=== PATIENT | male | born 1940 | race Caucasian/White ===

== ENCOUNTER → 2020-06-13 13:56 | Outpatient (BNVA) | payer MEDICARE, SELFPAY | PROVIDERS: PCP Internal Medicine; Visit Provider Urology | DX: N40.1 Benign prostatic hyperplasia with lower urinary tract symptoms (principal); R39.198 Other difficulties with micturition; R39.15 Urgency of urination; R97.20 Elevated prostate specific antigen [PSA]; N28.89 Other specified disorders of kidney and ureter; Z79.899 Other long term (current) drug therapy | CPT/HCPCS: 51798; 99214 ==

== ENCOUNTER 2020-06-20 11:26 | Outpatient (REF) | payer MEDICARE, SELFPAY ==
--- NOTE | 2020-06-20 11:28 | XR_ITS ---
EXAMINATION: XR SHOULDER, LEFT CLINICAL INFORMATION: Left shoulder pain. COMPARISON: None. TECHNIQUE: 3-view left shoulder FINDINGS: There is no evidence of acute fracture or dislocation of the left shoulder. There is mild narrowing of the glenohumeral joint with some inferior spurring. No evidence of calcific tendinitis. IMPRESSION: Mild degenerative change glenohumeral joint.
== END 2020-06-20 11:27 | disposition home or self-care (01) ==
LOC: HO.XRAY 11:26
PROVIDERS: PCP Internal Medicine; Referring Provider Internal Medicine; Visit Provider Orthopaedic Surgery
DX: M75.42 Impingement syndrome of left shoulder (principal); G56.01 Carpal tunnel syndrome, right upper limb; Z79.899 Other long term (current) drug therapy; Z95.0 Presence of cardiac pacemaker
CPT/HCPCS: 20610; 73030; 99214; J1040

== ENCOUNTER 2020-06-21 08:26 | Outpatient (REF) | payer MEDICARE, SELFPAY ==
--- NOTE | 2020-06-21 | US_ITS ---
EXAMINATION: US RETROPERITONEAL LIMITED (RENAL ONLY) CLINICAL INFORMATION: Renal mass. COMPARISON: Renal ultrasound dated 09/19/2016, CT abdomen dated 12/10/2019 TECHNIQUE: Real-time imaging of the kidneys. FINDINGS: RIGHT KIDNEY: 10.8 x 4.5 x 4.1 cm (SAG x AP x TRV). The kidney is normal in size, contour and echogenicity. Renal cortical thickness is normal. No renal calculi or hydronephrosis. There are at least 3 anechoic cysts seen. 1. A lower pole cyst measures 1.8 x 2.0 x 1.4 cm. 2. A lower pole cyst measures 1.1 x 1.2 x 1.2 cm. 3. A midpole cyst measures 1.2 x 1.3 x 1.4 cm. There is no solid mass visualized. LEFT KIDNEY: 12.1 x 4.5 x 4.5 cm (SAG x AP x TRV). The kidney is normal in size, contour and echogenicity. Renal cortical thickness is normal. No renal calculi or hydronephrosis. There are 2 anechoic cysts. 1. An upper pole cyst with septation measures 3.3 x 2.6 x 2.6 cm. 2. A lower pole anechoic cyst measures 1.9 x 2.2 x 2.3 cm. No solid mass seen. IMPRESSION: Bilateral renal cysts. A complex cyst upper pole left kidney is noted with septation. There are no echogenic renal calculi or hydronephrosis.
== END 2020-06-21 08:27 | disposition home or self-care (01) ==
LOC: HO.US 08:26
PROVIDERS: PCP Internal Medicine; Visit Provider Urology
DX: N28.89 Other specified disorders of kidney and ureter (principal)
CPT/HCPCS: 76775

== ENCOUNTER 2020-06-23 08:36 | Day surgery (SDC) | payer MEDICARE, SELFPAY ==
[2020-06-23 08:54] VITALS: BMI 22.9
[2020-06-23 09:04] VITALS: BP 142/71; PULSE 85; RESP 18; TEMP 36.8; O2SAT 97
--- NOTE | 2020-06-23 09:41 | MHC.SHP ---
Pre-Procedural Eval Section A The patient is an INPATIENT: No Changes since office visit: No Cold of Flu in the past 2 weeks, No New Medical Problems, No Changes in Medication and No Patient answered all questions Section B Chief Complaint: Gerd Allergies: Allergies Allergy/AdvReac Type Severity Reaction Status Date / Time No Known Allergies Allergy Mild N/A Verified 06/20/20 11:40 Plan Patient has been examined and remains a candidate for the planned procedure
--- NOTE | 2020-06-23 09:42 | MHC.SHP ---
Pre-Procedural Eval Section B Chief Complaint: Gerd Details of Present Illness: GERD Relevant Family History (Specify if Yes): No Relevant Social History: None Present Medications: see Short Stay Collaborative assessment Medical History: No relevant PMH History of Previous Operations: No relevant previous surgery Allergies: Allergies Allergy/AdvReac Type Severity Reaction Status Date / Time No Known Allergies Allergy Mild N/A Verified 06/20/20 11:40 Review of Systems Sugical H&P ROS: Negative: Constitution, Cardiovascular, Respiratory, Neurological, Psychiatric, Hem-Onc, Allergic/Immunologic, Gastrointestinal, Genitourinary, Musculoskeletal, Integumentary, Endocrine and Eyes/Ears/Nose/Throat Exam Surgical H&P Exam: Normal: HEENT, Normal: Heart, Normal: Lungs, Normal: Extremities, Normal: Abdomen, Normal: Skin and Normal: Neurological Plan Diagnosis/Plan: Unchanged Patient has been examined and remains a candidate for the planned procedure
--- NOTE | 2020-06-23 09:49 | HO.ANESPROP2 ---
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 Allergies Allergy/AdvReac Type Severity Reaction Status Date / Time No Known Allergies Allergy Mild N/A Verified 06/20/20 11:40 Home Medications Medication Instructions Recorded Confirmed Type tamsulosin 0.4 mg capsule mg PO 06/13/20 06/20/20 History omeprazole 40 mg capsule,delayed 40 mg PO DAILY 06/20/20 06/20/20 History release simvastatin 20 mg tablet 20 mg PO DAILY 06/20/20 06/20/20 History Exam Exam Date and Time: June 23, 202049 Height,Weight and Vital Signs: Height 5 ft 10 in Weight 72.575 kg Last Vital Signs Temp 98.3 F 06/23/20 09:04 Pulse 85 06/23/20 09:04 Resp 18 06/23/20 09:04 BP 142/71 H 06/23/20 09:04 Pulse Ox 97 06/23/20 09:04 Narrative Narrative: receding chin Airway Mallampati Class: III TM Dist: <=3cm Neck ROM: Limited Loose/Missing/Broken Teeth: No Heart: RRR Lungs: Clear Assessment and Plan Assessment Anesthesia Assessment: Anesthesia Plan Discussed and Chart Reviewed Final Anesthetic Review NPO: Yes ASA Class: III Final Preanesthetic Review: Meds/Allgs Chart Reviewed, Consent Obtained/Reviewed and Anes Risks/Benef Reviewed Patient Risk: Intermediate Procedure Risk: Intermediate Anesthetic Plan Anesthetic Plan: MAC: Disposition: Standard PACU
[2020-06-23 10:25] VITALS: BP 129/73; PULSE 59; RESP 16; TEMP 37.1; O2SAT 96
--- NOTE | 2020-06-23 10:28 | PM.OP ---
Brief Operative Note Date of procedure: 06/23/20 Pre-op diagnosis: GERD Post-op diagnosis: other (Minimal hiatal hernia and gastritis.) Procedure: EGD with biopsy Surgeon: Grzegorz Bhatia Anesthesia: MAC Estimated blood loss (mL): 2.0 Pathology: other (A. Gastric antrum B. EG Junction at 38cm) Condition: stable Disposition: PACU
--- NOTE | 2020-06-23 10:38 | PC.NURSE ---
Pt arrived in PACU with 1 Liter LR infusing. 500ml left in bag. IVF order not in MAR ansd was therefore documented as other in I&O
[2020-06-23 10:39] VITALS: BP 120/69; PULSE 64; RESP 18; O2SAT 98
--- NOTE | 2020-06-23 10:58 | OP_ITS ---
SURGEON: Grzegorz Bhatia MD INDICATIONS: The patient presents for evaluation of gastroesophageal reflux. Full consent has been obtained from him for this, including risks of bleeding and perforation. PREOPERATIVE DIAGNOSIS: Gastroesophageal reflux. POSTOPERATIVE DIAGNOSIS: PROCEDURE PERFORMED: Esophagogastroduodenoscopy with biopsies. ESTIMATED BLOOD LOSS: COMPLICATIONS: ANESTHESIA: Monitored anesthesia care. ASSISTANTS: SPECIMENS: POSTOPERATIVE DIAGNOSES: Gastroesophageal reflux., small hiatal hernia, and mild gastritis. DESCRIPTION OF PROCEDURE: The patient was placed in the left lateral decubitus position. The Olympus video gastroscope was passed in the posterior oropharynx and upper esophagus under direct vision. The scope was passed slowly to the distal esophagus. The gastroesophageal junction appeared at 38 cm. There was some very minimal irregularity consistent with some reflux, but no evidence of esophagitis nor any definitive evidence of Del Real's mucosa. There was a minimal hiatal hernia. The scope was advanced to the pylorus and the duodenum cannulated to the descending portion. The duodenum including the bulb was carefully inspected and appeared normal without mass or ulceration. The scope was withdrawn back into the stomach. The gastric antrum had some mild changes of gastritis with some erythema and edema, but no erosions or ulcerations. There was good peristalsis. The scope was retroflexed visualizing the proximal stomach carefully, which appeared normal, without any sign of mass or ulceration. Scope was straightened and biopsies were obtained from the gastric antrum. The scope was withdrawn back into the esophagus. Biopsies were obtained at the EG junction at 38 cm. Proximal to this, the esophageal mucosa appeared normal. The scope was withdrawn from the patient. He tolerated the procedure well and was returned to recovery area in stable condition. IMPRESSION: 1. Minimal hiatal hernia. 2. Gastroesophageal reflux. 3. Mild gastritis. PLAN: The results of the biopsy will be checked. In the past, he did have H pylori on his gastric biopsies. Even if that remains present, I would not necessarily treat that at this point since he is not having any abdominal complaints other than occasional reflux. He was advised to continue his omeprazole once or twice a day as needed. At this point, I think, he can see me on a p.r.n. basis, but he was advised to certainly call if any problems or questions arise. He was advised not to use any aspirin or NSAIDs for 1 week. This has been discussed with his . MD DAMON Davis/RYAN / [id number]
== END 2020-06-23 11:36 | disposition home or self-care (01) ==
PROVIDERS: Visit Provider Internal Medicine
PROC: 0DJ08ZZ Inspection of Upper Intestinal Tract, Via Natural or Artificial Opening Endoscopic (ICD-10-PCS; CPT 43235; principal; 2020-06-23 09:40)
DX: K21.00 Gastro-esophageal reflux disease with esophagitis, without bleeding (principal); K29.60 Other gastritis without bleeding; K44.9 Diaphragmatic hernia without obstruction or gangrene; Z79.899 Other long term (current) drug therapy; Z95.0 Presence of cardiac pacemaker
CPT/HCPCS: 43239; 88305; 88342

== ENCOUNTER 2021-01-11 09:20 | Outpatient (REF) | payer MEDICARE, SELFPAY ==
--- NOTE | ~2021-01-11 | US_ITS ---
EXAMINATION: US RETROPERITONEAL LIMITED (RENAL ONLY) CLINICAL INFORMATION: Other specified disorders of kidney and ureter. Renal cysts. COMPARISON: CT of the abdomen and pelvis most recent December 2019. Renal ultrasound most recent 06/21/2020. TECHNIQUE: Real-time imaging of the kidneys. FINDINGS: RIGHT KIDNEY: 11.0 x 4.0 x 4.6 cm (SAG x AP x TRV). The kidney is normal in size, contour, and echogenicity. Renal cortical thickness is normal. There are multiple at least 4 cysts. Largest measures 1.9 x 1.5 x 1.7 cm in the lower pole. Cysts appear to represent simple cysts. No renal calculi, mass or hydronephrosis. LEFT KIDNEY: 11.5 x 4.8 x 4.2 cm (SAG x AP x TRV). The kidney is normal in size, contour, and echogenicity. Renal cortical thickness is normal. There are multiple at least 4 cysts. The largest measures 3 cm in the upper pole. The previously identified septation seen on June 2020 is not appreciated on the current exam. There are 2 small 1 cm complex cysts with single thin septation in the upper and lower pole. No renal calculi, mass or hydronephrosis. US/US renal BI IMPRESSION: Multiple bilateral renal cysts. When compared with previous renal ultrasound June 2020, additional cysts are appreciated on the current exam. When compared with previous CT December 2019 there are multiple bilateral renal cysts seen by CT that are not appreciated by ultrasound. Follow-up CT or MRI of the kidneys with and without contrast for better evaluation of the multiple bilateral cysts should be considered if clinically indicated.
== END 2021-01-11 09:21 | disposition home or self-care (01) ==
LOC: HO.US 09:20
PROVIDERS: PCP Internal Medicine; Visit Provider Urology
DX: N28.89 Other specified disorders of kidney and ureter (principal)
CPT/HCPCS: 76775

== ENCOUNTER 2021-01-12 09:54 | Outpatient (REF) | payer MEDICARE, SELFPAY ==
[2021-01-12 14:17] LABS: Blood Urea Nitrogen 22 mg/dL (9-16); Estimated Glomerular Filt Rate 54
[2021-01-12 15:35] LABS: PSA,Total (Free>4and<10) 5.02 ng/mL (0.00-4.00)
[2021-01-15 11:56] LABS: Free Prostate Spec Ag 0.6 ng/mL; Percent Free Prostate Spec Ag 12 % (calc) (>25); Prostate Specific Ag Total 5.1 ng/mL (< OR = 4.0)
== END 2021-01-12 09:55 | disposition home or self-care (01) ==
LOC: HO.10HDL 09:54
PROVIDERS: Visit Provider Urology
DX: Z12.5 Encounter for screening for malignant neoplasm of prostate (principal); R97.20 Elevated prostate specific antigen [PSA]; R39.15 Urgency of urination
CPT/HCPCS: 36415; 82565; 84153; 84154; 84520

== ENCOUNTER → 2021-03-01 08:42 | Outpatient (BNVA) | payer MEDICARE, SELFPAY | PROVIDERS: PCP Internal Medicine; Visit Provider Urology | DX: N40.2 Nodular prostate without lower urinary tract symptoms (principal); N40.0 Benign prostatic hyperplasia without lower urinary tract symptoms; R97.20 Elevated prostate specific antigen [PSA] | CPT/HCPCS: 51798; 99212 ==

== ENCOUNTER → 2021-03-23 08:28 | Outpatient (BNVA) | payer MEDICARE, SELFPAY | PROVIDERS: Visit Provider Orthopaedic Surgery | DX: M77.11 Lateral epicondylitis, right elbow (principal) | CPT/HCPCS: 20550; 20605; J1020; Q3014 ==

== ENCOUNTER → 2021-04-11 14:30 | Outpatient (BNVA) | payer MEDICARE, SELFPAY | PROVIDERS: Visit Provider Surgery | DX: R10.30 Lower abdominal pain, unspecified (principal) | CPT/HCPCS: 99202 ==

== ENCOUNTER 2021-06-25 10:36 | Outpatient (REF) | payer MEDICARE, SELFPAY | END 2021-06-25 10:37 | disposition home or self-care (01) | LOC: HO.10HDL 10:36 | PROVIDERS: Visit Provider Urology | DX: N40.0 Benign prostatic hyperplasia without lower urinary tract symptoms (principal); Z12.5 Encounter for screening for malignant neoplasm of prostate | CPT/HCPCS: 36415; 84153 ==

== ENCOUNTER → 2021-07-03 08:24 | Outpatient (BNVA) | payer MEDICARE, SELFPAY | PROVIDERS: PCP Internal Medicine; Visit Provider Urology | CPT/HCPCS: Q3014 ==

== ENCOUNTER 2021-07-19 12:04 | Outpatient (REF) | payer MEDICARE, SELFPAY ==
--- NOTE | ~2021-07-19 | XR_ITS ---
EXAMINATION: XR PELVIS CLINICAL INFORMATION: Pain COMPARISON: Previous bilateral hip x-ray August 2015 TECHNIQUE: AP view of the pelvis. FINDINGS: There is bilateral hip arthritis with joint space narrowing and osteophyte. This is similar to 2015 exam. There is a stable sclerotic density projecting over the right femoral neck measuring 8 mm probably representing a bone island. Bones of the pelvis are normal. Soft tissues are normal. XR/XR pelvis 1-2V IMPRESSION: Bilateral hip arthritis similar to 2015 exam.
--- NOTE | ~2021-07-19 | XR_ITS ---
EXAMINATION: KNEE X-RAY CLINICAL INFORMATION: Pain COMPARISON: None TECHNIQUE: Standing AP view of both knees and lateral and sunrise view of the right knee FINDINGS: Right: There is mild valgus angulation. Bone alignment is otherwise normal. No fracture or dislocation is seen. There is bilateral degenerative meniscal calcification. There is mild joint space narrowing at the medial femoral tibial joint There are small osteophytes at the patellofemoral joint. There is an osteophyte at the quadriceps tendon insertion to the patella. There is a small joint effusion. There is evidence of atherosclerotic disease. Standing AP view of the left knee demonstrates degenerative meniscal calcification. XR/XR knee standing BI IMPRESSION: Degenerative changes.
--- NOTE | ~2021-07-19 | XR_ITS ---
EXAMINATION: KNEE X-RAY CLINICAL INFORMATION: Pain COMPARISON: None TECHNIQUE: Standing AP view of both knees and lateral and sunrise view of the right knee FINDINGS: Right: There is mild valgus angulation. Bone alignment is otherwise normal. No fracture or dislocation is seen. There is bilateral degenerative meniscal calcification. There is mild joint space narrowing at the medial femoral tibial joint There are small osteophytes at the patellofemoral joint. There is an osteophyte at the quadriceps tendon insertion to the patella. There is a small joint effusion. There is evidence of atherosclerotic disease. Standing AP view of the left knee demonstrates degenerative meniscal calcification. XR/XR knee RT 2V IMPRESSION: Degenerative changes.
== END 2021-07-19 12:05 | disposition home or self-care (01) ==
LOC: HO.HOSX 12:04
PROVIDERS: Visit Provider Orthopaedic Surgery
DX: R10.30 Lower abdominal pain, unspecified (principal); M25.561 Pain in right knee; M25.559 Pain in unspecified hip
CPT/HCPCS: 72170; 73560; 73565; 99202

== ENCOUNTER 2021-08-17 07:54 | Outpatient (REF) | payer MEDICARE, SELFPAY ==
[2021-08-17 10:43] LABS: Basophils Percent Auto 0.5 % (0-2); Eosinophils Absolute Auto 0.4 X10*3/uL (0.0-0.4); Eosinophils Percent Auto 4.8 % (0-4); Hematocrit 41.1 % (42.0-52.0); Hemoglobin 13.9 g/dl (14.0-18.0); Imm Gran Abs Auto 0.03 X10*3/uL (0.00-0.03); Imm Gran Pct Auto 0.4 % (0.0-0.4); Lymphocytes Absolute Auto 1.7 X10*3/uL (1.2-4.9); Lymphocytes Percent Auto 21.6 % (20-40); MANUAL DIFF FLAG NO; Mean Corpuscular HGB Conc 33.8 g/dl (31.0-36.0); Mean Corpuscular Volume 94.5 fL (80.0-98.0); Mean Platelet Volume 9.4 fL (9.4-12.4); Monocytes Absolute Auto 0.8 X10*3/uL (0.1-1.2); Monocytes Percent Auto 9.4 % (2-11); Neutrophils Percent Auto 63.3 % (45-73); Platelet Count 223 X10*3/uL (160-400); Red Blood Count 4.35 X10*6/uL (4.60-5.80); Red Cell Distribution Width 12.5 % (11.0-16.0)
[2021-08-17 10:55] LABS: Alanine Aminotransferase 12 U/L (0-40); Alkaline Phosphatase 74 U/L (39-117); Anion Gap 11 (12-20); Aspartate Amino Transferase 17 U/L (5-37); Bilirubin Total 0.8 mg/dL (0.0-1.0); Blood Urea Nitrogen 21 mg/dL (9-16); C Reactive Protein 0.11 mg/dL (< or = 0.50); Calcium 9.3 mg/dL (8.4-10.2); Carbon Dioxide 27 mmol/L (22-29); Cholesterol 168 mg/dL; Estimated Glomerular Filt Rate 52; Glucose Fasting 107 mg/dL (60-99); HDL Cholesterol 52 mg/dL; LDL Cholesterol Calculated 100 mg/dl; Total Protein 6.4 g/dL (6.5-8.0); Triglycerides 83 mg/dL
[2021-08-17 11:08] LABS: Albumin Level 4.1 g/dL (3.5-5.0); Chloride 106 mmol/L (96-108); Potassium 4.2 mmol/L (3.3-5.1); Sodium 140 mmol/L (135-145)
[2021-08-17 11:18] LABS: TSH reflex Free T4 3.15 uIU/mL (0.32-4.0)
[2021-08-17 11:22] LABS: Erythrocyte Sedimentation Rate 7 MM/HR (0-15)
[2021-08-17 11:48] LABS: Folate > 20.0 ng/mL (> or = 4.0); Vitamin B12 868 pg/mL (200-900)
== END 2021-08-17 07:55 | disposition home or self-care (01) ==
LOC: HO.10HDL 07:54
PROVIDERS: Visit Provider Internal Medicine
DX: M79.604 Pain in right leg (principal); M79.605 Pain in left leg; E55.9 Vitamin D deficiency, unspecified; I10 Essential (primary) hypertension; E53.8 Deficiency of other specified B group vitamins; M79.7 Fibromyalgia; E78.00 Pure hypercholesterolemia, unspecified
CPT/HCPCS: 36415; 80053; 80061; 82306; 82607; 82746; 84443; 85025; 85652; 86140

== ENCOUNTER 2021-08-24 07:35 | Outpatient (REF) | payer MEDICARE, SELFPAY ==
[2021-08-24 08:26] LABS: Glucose Fasting 110 mg/dL (60-99)
[2021-08-24 08:30] LABS: Estimated Average Glucose 111 mg/dL; Hemoglobin A1C 137.6215 umol/L; Hemoglobin A1c % 5.5 %
== END 2021-08-24 07:36 | disposition home or self-care (01) ==
LOC: HO.LAB 07:35
PROVIDERS: Visit Provider Internal Medicine
DX: R73.9 Hyperglycemia, unspecified (principal)
CPT/HCPCS: 36415; 82947; 83036

== ENCOUNTER 2021-10-22 11:16 | Outpatient (REF) | payer MEDICARE, SELFPAY ==
--- NOTE | ~2021-10-22 | XR_ITS ---
EXAMINATION: XR CHEST CLINICAL INFORMATION: Foreign body COMPARISON: CT abdomen 11/19/2019 TECHNIQUE: 2 views of the chest were obtained. FINDINGS: Lungs are hyperinflated compatible with COPD. A left chest wall single lead pacer is present with its tip at the right ventricular apex. There is an abandoned lead in the right chest wall with its tip also at the right ventricular apex. No infiltrates, pleural effusions, pneumothorax or lung masses are seen. There is no evidence of CHF. 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 XR/XR chest 2V IMPRESSION: Left chest wall single lead pacemaker. Abandoned pacer lead right chest. On the 11/19/2019 scan abdomen, the same 2 pacer leads are present.
== END 2021-10-22 11:17 | disposition home or self-care (01) ==
LOC: HO.HMGCX 11:16
PROVIDERS: PCP Internal Medicine; Visit Provider Internal Medicine
DX: T17.908A Unspecified foreign body in respiratory tract, part unspecified causing other injury, initial encounter (principal)
CPT/HCPCS: 71046

== ENCOUNTER → 2021-11-12 14:08 | Outpatient (BNVA) | payer MEDICARE, SELFPAY | PROVIDERS: PCP Internal Medicine; Visit Provider Orthopaedic Surgery | DX: M77.11 Lateral epicondylitis, right elbow (principal); M62.89 Other specified disorders of muscle | CPT/HCPCS: 20605; 99212; J1100 ==

== ENCOUNTER 2021-12-10 10:19 | Outpatient (REF) | payer MEDICARE, SELFPAY ==
--- NOTE | ~2021-12-10 | US_ITS ---
EXAMINATION: US RETROPERITONEAL LIMITED (RENAL ONLY) CLINICAL INFORMATION: Calculus of kidney. COMPARISON: US retroperitoneal limited (renal only) 01/11/2021 and 06/21/2020. CT abdomen without and with contrast 12/10/2019 TECHNIQUE: Real-time imaging of the kidneys. FINDINGS: RIGHT KIDNEY: 9.6 x 5.5 x 5.3 cm (SAG x AP x TRV). The kidney is normal in size, contour, and echogenicity. Renal cortical thickness is normal. No renal calculi or hydronephrosis. Benign-appearing renal cysts measuring up to 2.1 cm. LEFT KIDNEY: 10.4 x 5.2 x 4.5 cm (SAG x AP x TRV). The kidney is normal in size, contour, and echogenicity. Renal cortical thickness is normal. No renal calculi or hydronephrosis. Benign appearing and likely benign renal cysts one with a thin internal septation measuring 3.2 cm, and one measuring 2.4 cm with a mural calcification, no routine imaging follow-up recommended. US/US renal BI IMPRESSION: Benign-appearing likely benign appearing bilateral renal cysts measuring up to 3.2 cm, no routine imaging follow-up recommended.
[2021-12-10 12:03] LABS: PSA,Total (Free>4and<10) 1.42 ng/mL (0.00-4.00)
== END 2021-12-10 10:20 | disposition home or self-care (01) ==
LOC: HO.US 10:19
PROVIDERS: Visit Provider Urology
DX: Z12.5 Encounter for screening for malignant neoplasm of prostate (principal); N13.8 Other obstructive and reflux uropathy; N40.1 Benign prostatic hyperplasia with lower urinary tract symptoms; N20.0 Calculus of kidney; N28.1 Cyst of kidney, acquired
CPT/HCPCS: 36415; 76775; 84153

== ENCOUNTER 2021-12-31 10:00 | Outpatient (RCR) | payer MEDICARE, SELFPAY ==
--- NOTE | 2021-11-16 14:04 | MHC.PT.EP ---
[facility] [place] Office [place] Office [place] Office [address] Justice Francois [address] [phone] F: [phone] F: [phone] F: [phone] F: [phone] Physical Therapy Plan of Care Date of Evaluation: Date of Surgery: NA Diagnosis: HAMSTRING TIGHTNESS R LE Assessment: Pt IS 81 YO M REFERRED TO PT FROM DR CULVER WITH HAMSTRING TIGHTNESS OF R LE. Pt REPORTS R HS HAS BEEN BOTHERING HIM FOR ABOUT 3 MONTHS (INITIALLY THOUGHT ABOUT 6 WEEKS, BUT THEN REALIZED IT HAS BEEN LONGER. REPORTS NO SPECIFIC INJURY TO HS. REPORTS HE HAS STOPPED STRETCHING HIS HS (AT WALL) X 1 WK TO SEE IF THIS WOULD LESSEN THE IRRITATION (REPORTS NO DIFFERENCE). REPORTS HARDEST THING IS DRIVING. PRESENTS WITH TIGHT HS B (R WORSE THAN L) SOME TTP HS TENDONS/ITB, POOR BALANCE AND POSTURE (hx of back and neck problems with PT FOR BOTH) AND POOR BALANCE. Pt SHOULD BENFIT FROM PT TO HELP INCREASE HS AND LE FLEXIBILITY AND THEN HELP IMPROVE LE AND CORE STRENGTH. Frequency and Duration: The patient will be seen 2X/WK X 6 WKS Short Term Goals: 1. INCREASED POSTURE AND AWARENESS HS/LB CARE 2. INCREASED R HS FLEXIBILITY 5 DEGREES Skilled Nursing Goals: 1. I HEP WITH DC EX PLAN 2. INCREASED FLEX R HS 10 DEGREES 3. DECREASED PAIN R HS WITH DRIVING Treatment Plan: Modalities to reduce pain, spasms and effusion. Manual therapy to restore motion and function. Therapeutic exercise to improve strength and flexibility. Neuromuscular re-education for posture and balance. Therapeutic activities to return to functional activities of daily living. Electronically signed by: DARRELL IBARRA PT Please sign and return to therapist. Thank you for your referral.
--- NOTE | 2021-12-31 12:21 | MHC.PT.DC ---
[facility] [place] Office [place] Office [place] Office [address] Justice Francois [address] [phone] F: [phone] F: [phone] F: [phone] F: [phone] Physical Therapy Discharge Report Diagnosis: HAMSTRING TIGHTNESS R LE Date of Surgery: NA Date of Evaluation: 11/16/21 Date of Discharge: 12/31/21 Treatments to Date: 9 Cancellations to Date: No Shows to Date: Discharge Status: Achieved Goals Independent with HEP Discharge Summary: HAS MET MOST PT GOALS, GOOD PERFORMANCE OF HOME EXS WITH REMINDER OF HOLD TIMES AND REPS Electronically signed by: DARRELL IBARRA PT Please sign and return to therapist. Thank you for your referral.
== END 2021-12-31 12:22 | disposition home or self-care (01) ==
LOC: HO.PT 10:00
PROVIDERS: PCP Internal Medicine; Visit Provider Orthopaedic Surgery
DX: M62.89 Other specified disorders of muscle (principal)
CPT/HCPCS: 97110; 97140; 97161; 97530; 97535

== ENCOUNTER → 2022-01-08 08:43 | Outpatient (BNVA) | payer MEDICARE, SELFPAY | PROVIDERS: PCP Internal Medicine; Visit Provider Urology | DX: N40.0 Benign prostatic hyperplasia without lower urinary tract symptoms (principal); R35.0 Frequency of micturition | CPT/HCPCS: 51798; 99212 ==

== ENCOUNTER → 2022-06-27 09:01 | Outpatient (BNVA) | payer MEDICARE, SELFPAY | PROVIDERS: PCP Internal Medicine; Visit Provider Urology | DX: N40.1 Benign prostatic hyperplasia with lower urinary tract symptoms (principal); R35.0 Frequency of micturition; R36.1 Hematospermia | CPT/HCPCS: 51798; 99212 ==

== ENCOUNTER 2022-07-04 10:00 | Outpatient (RCR) | payer MEDICARE, SELFPAY ==
--- NOTE | 2022-05-15 18:20 | MHC.PT.EP ---
[facility] [place] Office [place] Office [place] Office [address] Justice Francois [address] [phone] F: [phone] F: [phone] F: [phone] F: [phone] Physical Therapy Plan of Care Date of Evaluation: Date of Surgery: N/A Diagnosis: other specified disorders of muscle sciatica, right side hamstring tightness of right lower extremity Assessment: Pt is a pleasant and motivated 81yo M who presents to PT with R glute pain radiating into R LE since Friday. He presents to PT with current impairments in pain, decreased lumbar ROM, decreased core stabilization, decreased hip/glute strength, soft tissue restrictions, and impaired gait. He is limited functionally by prolonged sitting, bending, getting dressed, standing, and walking. He is an excellent candidate for skilled PT in order to address current impairments to facilitate return to PLOF. He will be seen 2x/week for 4 weeks and will be reassessed at that time. Frequency and Duration: The patient will be seen 2x/week for 4 weeks Short Term Goals: Pt will be I with HEP to promote self management of symptoms Pt will demonstrate improvements in postural awareness throughout the day Development And Planning Engineer Goals: Pt will tolerate sitting > 45 minutes with minimal to no pain Pt will demonstrate improvement in function as evidenced by statistically significant improvement in AMILCAR outcome measure Treatment Plan: Modalities to reduce pain, spasms and effusion. Manual therapy to restore motion and function. Therapeutic exercise to improve strength and flexibility. Neuromuscular re-education for posture and balance. Therapeutic activities to return to functional activities of daily living. Electronically signed by: Regina Lawson, PT, DPT Please sign and return to therapist. Thank you for your referral.
--- NOTE | 2022-07-04 12:42 | MHC.PT.DC ---
[facility] [place] Office [place] Office [place] Office [address] Justice Francois [address] [phone] F: [phone] F: [phone] F: [phone] F: [phone] Physical Therapy Discharge Report Diagnosis: other specified disorders of muscle sciatica, right side hamstring tightness of right lower extremity Date of Surgery: N/A Date of Evaluation: 05/15/22 Date of Discharge: 07/04/22 Treatments to Date: 11 Cancellations to Date: No Shows to Date: Discharge Status: Achieved Goals Improved Function Independent with HEP Discharge Summary: Pt has made excellent progress since SOC. He has met his STGs and made good progress toward his LTGs. He has consistently reported minimal to no pain. He demonstrates improvements in postural awareness and body mechanics. He has improved sitting tolerance up to 45 minutes with minimal to no discomfort. He is I and compliant with HEP. Pt is being D/C from skilled PT at this time. He has printed copy of HEP and GTB and BTB. He reports no further questions or concerns for PT at this time. Electronically signed by: Regina Lawson, PT, DPT Please sign and return to therapist. Thank you for your referral.
== END 2022-07-04 12:43 | disposition home or self-care (01) ==
LOC: HO.PT 10:00
PROVIDERS: PCP Internal Medicine; Visit Provider Orthopaedic Surgery
DX: M62.89 Other specified disorders of muscle (principal); M54.31 Sciatica, right side
CPT/HCPCS: 97110; 97140; 97161; 97530

== ENCOUNTER → 2022-12-24 14:31 | Outpatient (BNVA) | payer MEDICARE, SELFPAY | PROVIDERS: PCP Internal Medicine; Visit Provider Nurse Practitioner Family | DX: N48.89 Other specified disorders of penis (principal); Q55.69 Other congenital malformation of penis | CPT/HCPCS: 99212 ==

== ENCOUNTER → 2023-01-08 12:19 | Outpatient (BNVA) | payer MEDICARE, SELFPAY | PROVIDERS: PCP Internal Medicine; Visit Provider Orthopaedic Surgery | DX: G56.01 Carpal tunnel syndrome, right upper limb (principal); R20.0 Anesthesia of skin; R20.2 Paresthesia of skin | CPT/HCPCS: 99202 ==

== ENCOUNTER 2023-01-09 09:25 | Outpatient (REF) | payer MEDICARE, SELFPAY ==
[2023-01-09 11:07] LABS: Prostate Specific Antigen 1.61 ng/mL (<0.05-4.0)
== END 2023-01-09 09:26 | disposition home or self-care (01) ==
LOC: HO.10HDL 09:25
PROVIDERS: Visit Provider Urology
DX: Z12.5 Encounter for screening for malignant neoplasm of prostate (principal); N40.1 Benign prostatic hyperplasia with lower urinary tract symptoms; N13.8 Other obstructive and reflux uropathy
CPT/HCPCS: 36415; 84153

== ENCOUNTER 2023-01-16 14:06 | Day surgery (SDC) | payer MEDICARE, SELFPAY ==
[2023-01-16 15:39] VITALS: BMI 23.2
--- NOTE | 2023-01-16 16:49 | MHC.SHP ---
Pre-Procedural Eval Section A Date of Service: 01/16/23 The patient is an INPATIENT: No Changes since office visit: No Cold of Flu in the past 2 weeks, No New Medical Problems, No Changes in Medication and No Patient answered all questions The History & Physical has been completed within 30 days and I have reviewed it.: Yes Section B Chief Complaint: Carpal tunnel syndrome, right upper limb Allergies: Allergies Allergy/AdvReac Type Severity Reaction Status Date / Time No Known Allergies Allergy Mild N/A Verified 01/08/23 12:37 Plan I have reviewed the history and physical and performed a pertinent physical examination on my patient. No changes have occurred unless specified. Time Spent With Patient Time: Total time managing care of this patient today ____ minutes.
--- NOTE | 2023-01-16 16:50 | W.PM.OPN ---
Operative Note Operative Note Date of Service: 01/16/23 Narrative: Preop diagnosis: 1. Right Carpal tunnel syndrome Postop diagnosis: same Procedure: 1. right Carpal tunnel release Surgeon: Christel Flores MD Anesthesia: local block using 1% lidocaine with epinephrine Findings: Thickened transverse carpal ligament. EBL: Less than 5 mL Specimens: None Complications: None Disposition: Brought to recovery room in stable condition Plan: Follow-up for 10-14 days for wound check and suture removal Indications: The patient is 82 years old, with right carpal tunnel syndrome that has been unresponsive to nonoperative management. The risks and benefits of operative treatment including but not limited to risk of damage to blood vessels, nerves, tendons, infection, persistent pain, persistent symptoms, or possible need for additional surgery were discussed with the patient and the patient wishes to proceed with surgery. Procedure: Once consent was obtained a local block was performed using a combination of 1% lidocaine with epinephrine. The patient was then brought back to the operating suite and placed on the operative table in supine position. The right upper extremity was prepped and draped in a standard surgical fashion. Once assured that we had a good block, a 2.0 cm longitudinal incision was made centered over the carpal tunnel. The incision was made through the skin to the subcutaneous tissues using a #15 blade. Dissection was made down to the level of the transverse carpal ligament with care being taken to protect the palmar cutaneous nerve. Once the transverse carpal ligament was clearly visualized, a longitudinal incision was made in the transverse carpal ligament 1st using a #15 blade, then using tenotomy scissors under direct visualization. Care was taken to look for and protect the motor branch of the median nerve when seen in this area. Once satisfied with our carpal tunnel release the wound was copiously irrigated with normal saline and hemostasis was obtained with a brief period of local pressure. The skin edges were reapproximated with some 5.0 nylon suture material and a sterile dressing was applied. The patient appears to have tolerated the procedure well and with no complications. All digits were well vascularized at the conclusion of the case.
[2023-01-16 18:05] VITALS: BP 168/84; PULSE 66; RESP 18; TEMP 36.6; O2SAT 99
== END 2023-01-16 18:14 | disposition home or self-care (01) ==
PROVIDERS: PCP Internal Medicine; Visit Provider Orthopaedic Surgery
PROC: (CPT 64721; principal; 2023-01-16 15:10)
DX: G56.01 Carpal tunnel syndrome, right upper limb (principal); M79.641 Pain in right hand; R20.0 Anesthesia of skin; R20.2 Paresthesia of skin; K21.9 Gastro-esophageal reflux disease without esophagitis; E78.00 Pure hypercholesterolemia, unspecified; Z95.0 Presence of cardiac pacemaker; Z98.890 Other specified postprocedural states
CPT/HCPCS: 64721; J0171

== ENCOUNTER → 2023-01-22 09:29 | Outpatient (BNVA) | payer MEDICARE, SELFPAY | PROVIDERS: PCP Internal Medicine; Visit Provider Urology | DX: N40.1 Benign prostatic hyperplasia with lower urinary tract symptoms (principal); N13.8 Other obstructive and reflux uropathy; R97.20 Elevated prostate specific antigen [PSA]; Z79.899 Other long term (current) drug therapy | CPT/HCPCS: 51798; 99212 ==

== ENCOUNTER → 2023-01-29 11:03 | Outpatient (BNVA) | payer MEDICARE, SELFPAY | PROVIDERS: PCP Internal Medicine; Visit Provider Orthopaedic Surgery | DX: Z47.89 Encounter for other orthopedic aftercare (principal); R20.0 Anesthesia of skin; R20.2 Paresthesia of skin; Z86.69 Personal history of other diseases of the nervous system and sense organs | CPT/HCPCS: 99212 ==

== ENCOUNTER 2023-09-29 10:44 | Outpatient (REF) | payer MEDICARE, SELFPAY ==
[2023-09-29 14:12] LABS: Prostate Specific Antigen 2.04 ng/mL (<0.05-4.0)
== END 2023-09-29 10:45 | disposition home or self-care (01) ==
LOC: HO.10HDL 10:44
PROVIDERS: Visit Provider Urology
DX: N40.1 Benign prostatic hyperplasia with lower urinary tract symptoms (principal); Z12.5 Encounter for screening for malignant neoplasm of prostate
CPT/HCPCS: 36415; 84153

== ENCOUNTER 2023-12-28 10:38 | Outpatient (REF) | payer MEDICARE, SELFPAY ==
--- NOTE | ~2023-12-28 | XR_ITS ---
EXAMINATION: XR CHEST CLINICAL INFORMATION: No acute cough tachycardia COMPARISON: Chest radiograph from 10/22/2021 TECHNIQUE: 2 views of the chest were obtained. FINDINGS: Redemonstrated abandoned pacer lead right chest wall. Left chest wall pacer with single lead. Chronic interstitial lung markings. No pneumothorax. Trachea is midline. Cardiac mediastinal silhouette is stable. No large pleural effusion. Degenerative changes of the thoracolumbar spine with ossification of the anterior longitudinal ligament. Soft tissues are unremarkable. XR/XR chest 2V IMPRESSION: 1. Redemonstrated abandoned pacer lead right chest wall. 2. Left chest wall pacer with single lead. 3. Chronic interstitial lung markings.
== END 2023-12-28 10:39 | disposition home or self-care (01) ==
LOC: HO.XRAY 10:38
PROVIDERS: Visit Provider Nurse Practitioner Primary Care
DX: R05.1 Acute cough (principal); R00.0 Tachycardia, unspecified; R12 Heartburn; E78.49 Other hyperlipidemia
CPT/HCPCS: 71046

== ENCOUNTER 2024-01-22 09:26 | Outpatient (AMB) | payer MEDICARE, SELFPAY ==
--- NOTE | 2024-01-22 09:34 | MHC.OFFVIS ---
Intake Visit Reasons: 1y/PSA/PVR(set) Intake Note: Patient is Present for PVR/ Urology Med: Tamsulosin, Finasteride Antibiotic Allergy: None Blood Thinner: None Last PVR: 22 Todays PVR: 0 Allergies No Known Allergies Allergy (Mild, Verified 01/22/24 09:36) N/A Medication List - Last Reconciled 01/22/24 by Juan C Singh MD arm brace (Wrist Brace) COMFORT FORM WRIST, rt, M clotrimazole-betamethasone 1-0.05 % 1 appl topical BID 4 weeks finasteride 5 mg PO DAILY 90 days omeprazole 40 mg PO DAILY oxycodone 5 mg PO Q6H PRN simvastatin 20 mg PO BEDTIME tamsulosin 0.8 mg (2 x 0.4 mg) PO DAILY 90 days vitamins A,C,H-wrjg-zijmji 4,296 mcg-226 mg-90 mg (ICaps AREDS) 1 cap PO BID HPI Comments Details: Candido is a pleasant male. 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 He is seen for the following urologic conditions - lower urinary tract symptoms - elevated PSA PVR 20 cc PSA low Effective emptying Combination therapy with Flomax maximal dose plus finasteride Lower urinary tract symptoms responds well to Flomax 0.8 mg p.o. 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 alpha-maggy with finasteride Elevated PSA Variable ranging from 3.8-5.1 PSA 01/19 5.0, 06/21 1.9, 12/21 1.4, 01/21 1.6, 09/24 2 Continue finasteride with yearly review Complex renal cyst Left side 2 x 1 cm cyst December 2019 Stable last imaging 2021 no need for follow-up [facility] Medical History GERD (gastroesophageal reflux disease) Pure hypercholesterolemia Groin pain Obstructive and reflux uropathy Wrist tendonitis Cardiac pacemaker Surgical History History of surgery Trigger finger History of tonsillectomy H/O arthroscopy of right knee History of appendectomy Family History Father Cancer Mother Cancer Social History Housing: House Alcohol intake: current Alcohol intake frequency: holidays/special occasions only Patient Tobacco Use Status: Never used Tobacco e-Cigarette/Vaping Use: Never Used Second Hand Smoke Exposure: No service: Yes Current occupational status: retired 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 Review of Systems Const Denies chills and Denies fever(s) Card Reports no additional complaints and Denies syncope Resp Denies cough GI Denies abdominal pain and Denies heartburn Reports as per HPI and Denies change in libido Neuro Denies syncope Psych Denies change in libido Endo Denies change in libido Physical Exam Const General: cooperative, healthy appearing, comfortable and no acute distress Orientation/consciousness: patient oriented x3 HEENT Face and sinus: Yes normal facial exam Mouth: moist mucous membranes Neck Neck: Yes normal visual inspection, Yes full ROM and Yes trachea midline Chest Chest palpation & inspection: normal inspection of the chest Resp Effort & Inspection: normal respiratory effort, able to speak in complete sentences and no respiratory distress GI Inspection: Yes normal to inspection Back/Spine/Pelvis Cervical Spine: normal cervical lordosis Thoracic/Lumbar Spine: thoracic and lumbar spine normal to inspection Skin General skin exam: no rashes or lesions noted Neuro General: patient oriented x3, gait normal, tone normal and moves all extremities Extrem General: Yes normal to inspection and Yes capillary refill normal Office Procedures Post Void Residual Post Residual Void Post Void Residual (PVR): 0 [id number] Void Residual by ultrasound Assessment & Plan Assessment & Plan (1) BPH loc w urin obs/LUTS: Code(s): N40.1 - Benign prostatic hyperplasia with lower urinary tract symptoms Category: Medical (2) Elevated PSA: Code(s): R97.20 - Elevated prostate specific antigen [PSA] Category: Medical (3) Urgency of micturition: Code(s): R39.15 - Urgency of urination Category: Medical Plan Twelve month follow-up PSA Orders: Orders AMB Post Void Residual by ultrasound 01/22/24 N40.1 - Benign prostatic hyperplasia with lower urinary tract symptoms Basic Metabolic Panel 01/29/24 N20.0 - Calculus of kidney, N40.1 - Benign prostatic hyperplasia with lower urinary tract symptoms Prostate Specific Antigen 364 Days N40.1 - Benign prostatic hyperplasia with lower urinary tract symptoms Patient Instructions: Imaging studies, laboratory and physical exam results were discussed and reviewed in detail. No major barriers to patient understanding were identified. An opportunity to ask questions regarding the treatment plan was provided. All questions were answered. The patient expressed understanding and agreement with the above treatment plan. The patient is aware they should contact our office by phone for worsening of their current condition or the appearance of new urologic symptoms. Compliance is encouraged with any medications and followup testing that is ordered. It is a privilege to participate in the urologic care of your patient. If you have any questions or concerns regarding treatment for the above conditions, or other urologic issues, please do not hesitate to contact me. The office telephone contact is [phone]. This note is constructed using voice recognition software. While every effort has been made to ensure accuracy toddler lead teacher errors may have been included. Yours sincerely, Dr Juan C Singh MD, [facility] - Urology Providers of Expert, Compassionate Care for the Genitourinary System Coding Level of Care Code Est Pt Level 4 (97346) Diagnoses BPH loc w urin obs/LUTS N40.1 Elevated PSA R97.20 Urgency of micturition R39.15 CPT Codes Post Residual Void - PVR CPT Code: 80309-Pdid Void Residual by ultrasound ([id number])
== END 2024-01-22 10:00 | disposition home or self-care (01) ==
PROVIDERS: PCP Internal Medicine; Visit Provider Urology
DX: N40.1 Benign prostatic hyperplasia with lower urinary tract symptoms (principal); R97.20 Elevated prostate specific antigen [PSA]; R39.15 Urgency of urination
CPT/HCPCS: 99214

== ENCOUNTER → 2024-01-22 09:26 | Outpatient (BNVA) | payer MEDICARE, SELFPAY | PROVIDERS: Visit Provider Urology | DX: N40.1 Benign prostatic hyperplasia with lower urinary tract symptoms (principal); R97.20 Elevated prostate specific antigen [PSA]; R39.15 Urgency of urination | CPT/HCPCS: 51798; 99212 ==

== ENCOUNTER 2024-01-29 07:37 | Outpatient (REF) | payer MEDICARE, SELFPAY ==
[2024-01-29 10:51] LABS: Anion Gap 14 (12-20); Blood Urea Nitrogen 20 mg/dL (9-16); Calcium 9.2 mg/dL (8.4-10.2); Carbon Dioxide 26 mmol/L (22-29); Chloride 104 mmol/L (96-108); Estimated Glomerular Filt Rate 55; Glucose Random 109 mg/dL (60-115); Potassium 3.9 mmol/L (3.3-5.1); Sodium 140 mmol/L (135-145)
== END 2024-01-29 07:38 | disposition home or self-care (01) ==
LOC: HO.10HDL 07:37
PROVIDERS: Visit Provider Urology
DX: N20.0 Calculus of kidney (principal); N40.1 Benign prostatic hyperplasia with lower urinary tract symptoms
CPT/HCPCS: 36415; 80048

== ENCOUNTER 2024-02-13 07:10 | Outpatient (REF) | payer MEDICARE, SELFPAY ==
[2024-02-13 08:40] LABS: Alanine Aminotransferase 11 U/L (0-40); Albumin Level 4.2 g/dL (3.5-5.0); Alkaline Phosphatase 71 U/L (39-117); Anion Gap 14 (12-20); Aspartate Amino Transferase 17 U/L (5-37); Bilirubin Total 0.8 mg/dL (0.0-1.0); Blood Urea Nitrogen 20 mg/dL (9-16); Calcium 9.4 mg/dL (8.4-10.2); Carbon Dioxide 25 mmol/L (22-29); Chloride 106 mmol/L (96-108); Estimated Glomerular Filt Rate 55; Glucose Random 106 mg/dL (60-115); Magnesium 2.2 mg/dL (1.6-2.6); Potassium 3.9 mmol/L (3.3-5.1); Sodium 141 mmol/L (135-145); Total Protein 6.7 g/dL (6.5-8.0)
[2024-02-13 09:00] LABS: Thyroid Stimulating Hormone 3.99 uIU/mL (0.32-4.0)
== END 2024-02-13 07:11 | disposition home or self-care (01) ==
LOC: HO.LAB 07:10
PROVIDERS: PCP Internal Medicine; Visit Provider Nurse Practitioner Acute Care
DX: R00.2 Palpitations (principal)
CPT/HCPCS: 36415; 80053; 83735; 84443

== ENCOUNTER 2024-04-29 12:34 | Outpatient (AMB) | payer MEDICARE, SELFPAY ==
[2024-04-29 12:43] VITALS: BP 138/74; PULSE 55; O2SAT 98; BMI 24.3
--- NOTE | 2024-04-29 12:43 | A.OFFPC_ITS ---
Vital Signs 04/29/24 12:43 Height 5 ft 10 in Blood Pressure Location Lt brachial Position Sitting Pulse Source Pulse Oximeter Oxygen Delivery Method Room Air Intake Visit Reasons: annual exam Day Care Aide Required: No Accompanied by: Self / Same As Patient Allergies No Known Allergies Allergy (Mild, Verified 04/29/24 12:44) N/A Tobacco use date assessed: 04/29/24 Fall risk assessment: No Falls in past year Last assessed Fall Risk: 04/29/24 Dental Screening Dental Screen Date: 04/29/24 [facility] Medical History (Updated 02/13/24 @ 17:34 by Chevy Pleitez MD) GERD (gastroesophageal reflux disease) Pure hypercholesterolemia Groin pain Obstructive and reflux uropathy Wrist tendonitis Cardiac pacemaker Surgical History (Updated 04/29/24 @ 12:51 by Chevy Pleitez MD) History of colonoscopy History of surgery Trigger finger History of tonsillectomy H/O arthroscopy of right knee History of appendectomy Family History Father Cancer Mother Cancer Social History Housing: House Alcohol intake: current Alcohol intake frequency: holidays/special occasions only Patient Tobacco Use Status: Never used Tobacco e-Cigarette/Vaping Use: Never Used Second Hand Smoke Exposure: No service: Yes Current occupational status: retired 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 1. Little interest or pleasure in doing things: not at all 2. Feeling down, depressed, or hopeless: not at all 3. Trouble falling or staying asleep, or sleeping too much: not at all 4. Feeling tired or having little energy: not at all 5. Poor appetite or overeating: not at all 6. Feeling bad about yourself - or that you are a failure or have let yourself or your family down: not at all 7. Trouble concentrating on things, such as reading the newspaper or watching television: not at all 8. Moving or speaking so slowly that other people could have noticed. Or the opposite - being so fidgety or restless that you have been moving around a lot more than usual: not at all 9. Thoughts that you would be better off or of hurting yourself in some way: not at all Total score: 0 Depression Screening Interpretation: Negative Depression Screening Done: Yes Source: Developed by Drs. Grzegorz Cardenas, Nikki Casas, Nam Kee and colleagues, with an educational yue from [employer]. Thrive Questionnaire Date Thrive assessed: 04/29/24 I am a: Patient What is your living situation today?: I have a steady place to live Within the past 12 months, did the food you bought not last and you didn't have the money to get more?: Never true Within the past 12 months, did you worry whether your food would run out before you got money to buy more?: Never true Do you have trouble paying for medicines?: No Do you have trouble getting transportation to medical appointments?: No Do you have trouble paying your heating and electricity bill?: No Do you have trouble taking care of your child, family member or friend?: No Do you have trouble with day-to-day activities such as bathing, preparing meals, shopping, managing finances, etc.?: No Are you currently unemployed and looking for a job?: No Are you interested in more education?: No Please select the resources that you would like help with: None Currently or been in a relationship where the following occur: No concerns reported THRIVE Score: 0 AUDIT C Alcohol Use Questionnaire (AUDIT-C) 1. How often do you have a drink containing alcohol?: Monthly or less 2. How many drinks containing alcohol do you have on a typical day when you are drinking?: 1 or 2 3. How often do you have six or more drinks on one occasion?: Never Total Score: 1 Score Reviewed/Action Taken: Yes ROSA-7 AMB Questionnaire RSOA-7 Date ROSA - 7 assessed: 04/29/24 Feeling nervous, anxious, or on edge: 0 = Not at all Not being able to stop or control worryin = Not at all Worrying too much about different things: 0 = Not at all Trouble relaxin = Not at all Being so restless that it is hard to sit still: 0 = Not at all Becoming easily annoyed or irritable: 0 = Not at all Feeling afraid as if something awful might happen: 0 = Not at all Total ROSA-7 score (0-4 normal; 5-9 mild; 10-14 moderate; 15-21 severe): 0 Source: Developed by Drs. Grzegorz Cardenas, Nikki Casas, Nam Kee and colleagues, with an educational yue from [employer]. Physical exam (Primary Care) Vital Signs: Oxygen Delivery Method Room Air 04/29/24 12:43 Tobacco/Smoking Status: Tobacco use Status Tobacco use date assessed 04/29/24 04/29/24 12:46 Patient Tobacco Use Status Never used Tobacco 04/29/24 12:46 e-Cigarette/Vaping Use Never Used 04/29/24 12:46 PHQ-9: PHQ-9 Score PHQ-9: Total score 0 04/29/24 12:46 Depression Screening Interpretation: Negative Thrive Assessment: Date of Thrive Assessment Date Thrive assessed 04/29/24 04/29/24 12:46 Currently or been in a relationship where the following occur: No concerns reported Coding Additional Codes PHQ-9 - 90460 - PHQ-9 Billing: ([id number])
--- NOTE | 2024-04-29 12:54 | AM.OFFVISMDC ---
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 Required: No Accompanied by: Self / Same As Patient Allergies No Known Allergies Allergy (Mild, Verified 04/29/24 13:01) N/A Medication List - Last Reconciled 04/29/24 by Chevy Pleitez MD arm brace (Wrist Brace) COMFORT FORM WRIST, rt, M clotrimazole-betamethasone 1-0.05 % 1 appl topical BID 4 weeks finasteride 5 mg PO DAILY 90 days omeprazole 40 mg PO DAILY oxycodone 5 mg PO Q6H PRN propranolol ER 60 mg PO DAILY simvastatin 20 mg PO BEDTIME tamsulosin 0.8 mg (2 x 0.4 mg) PO DAILY 90 days vitamins A,C,B-xcja-ylysea 4,296 mcg-226 mg-90 mg (ICaps AREDS) 1 cap PO BID Do you need a note to return to daycare/school/sports/work: No HPI annual exam HPI Details Patient comes in today for his Medicare Annual Wellness Exam and follow up visit States that he currently feels okay Still has occasional bouts of palpitations but states that these are mostly isolated and are not associated with any dizziness, lightheadedness, chest pains or discomfort or SOB He denies any headaches Denies any chest pains, no SOB No nausea/vomiting, no abdominal pain No change in bowel habits noted He denies any acute urinary symptoms - states that his Finasteride and Tamsulosin has helped a lot with his urinary frequency States that he stays fairly active and technically has no limitations with his ADLs but he experiences frequent muscle pain and cramping in his thighs and legs when he walks and this is the only reason that he is limited in his ability to walk and exercise Relates that he had some routine labs done a couple of months ago but has not had his cholesterol levels checked in a few years now He had his last screening colonoscopy done back in [address] Kaylah Lockett and has not had a repeat colonoscopy since IPPE/AWV: c/o of Annual Wellness Visit, initial visit. Medical / Social History Reviewed Past Medical History Yes . [place] of Care / Care Team list updated Yes . Surgical/Hospitalization History Yes . Current Medications (including OTC and supplements) Yes . Family History Yes . Tobacco Control form Yes . AUDIT-C (Alcohol use) form Yes . Illicit drug use in Social History Yes . Current diagnosis of depression? No Appropriate PHQ2/PHQ9 completed Yes . Data entered by [facility] and reviewed by provider Home Safety Throw rugs? No Grab bars? No Raised toilet seats? No Working smoke detectors? Yes Working carbon monoxide detectors? Yes Data entered by [facility] and reviewed by provider Activities of Daily Living (ADLs) Difficulty bathing or showering? No Difficulty dressing? No Difficulty using the toilet? No Difficulty getting in and out of bed? No Difficulty walking? No Receives help from another person with any of the above tasks? No Instrumental Activities of Daily Living (IADLs) Uses the telephone without help Gets to places out of walking distance without help Goes shopping for groceries without help Prepares own meals without help Does own minor home maintenance without help Does own laundry without help Does own housework without help Manages own money without help Currently takes medications? Yes Takes medication without help End-of-Life Planning Discussed advance directive Yes Advance directive on file Discussed wishes expressed in advance directive agreed to following patient's wishes Fall Risk: Fall History Have you had any falls with injury in the past year? No . Have you had two or more falls in the past year? No . Fall Risk Assessment: No falls in the past year . HRA filled out by the patient, reviewed by Provider and scanned. [facility] Medical History (Updated 04/30/24 @ 01:58 by Chevy Pleitez MD) Multiple premature ventricular complexes GERD (gastroesophageal reflux disease) Pure hypercholesterolemia Groin pain Obstructive and reflux uropathy Wrist tendonitis Cardiac pacemaker Surgical History History of colonoscopy History of surgery Trigger finger History of tonsillectomy H/O arthroscopy of right knee History of appendectomy Family History Father Cancer Mother Cancer Social History Housing: House Alcohol intake: current Alcohol intake frequency: holidays/special occasions only Patient Tobacco Use Status: Never used Tobacco e-Cigarette/Vaping Use: Never Used Second Hand Smoke Exposure: No service: Yes Current occupational status: retired 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 Medicare Wellness Checkup What is your age?: 78 or older What gender do you identify with?: male During the past 4 weeks, how much have you been bothered by emotional problems such as feeling anxious, depressed, irritable, sad or downhearted, and blue?: not at all During the past 4 weeks, has your physical & emotional health limited your social activities with family, friends, neighbors, or groups?: not at all During the past 4 weeks, how much bodily pain have you generally had?: moderate pain During the past 4 weeks, was someone available to help you if you needed & wanted help?: yes, as much as I wanted During the past 4 weeks, what was the hardest physical activity you could do for at least 2 minutes?: light Can you get to places out of walking distance without help? (For eg., can you travel alone on buses, taxis or drive your car?): Yes Can you go shopping for groceries or clothes without someone's help?: Yes Can you prepare your own meals?: Yes Can you do your housework without help?: No Because of any health problems, do you need the help of another person with your personal care needs such as eating, bathing, dressing or getting around the house?: No Can you handle your own money without help?: Yes During the past 4 weeks, how would you rate your health in general?: very good During the past 4 weeks how have things been going for you?: very well; could hardly better Are you having difficulties driving your car?: no Do you always fasten your seat belt when you are in a car?: yes, usually During past 4 weeks, have you been bothered by the following: never: Falling or dizzy when standing up, Sexual problems?, Trouble eating well?, Teeth or denture problems? and Problems using the telephone? and often: Tiredness or fatigue? Have you fallen 2 or more times in the past year?: No Are you afraid of falling?: No Are you a smoker?: no During the past 4 weeks, how many drinks of wine, beer, or other alcoholic beverages did you have?: 1 drink or less per week Do you exercise for about 20 minutes 3 or more times a week?: yes, some of the time Have you been given information to help with the following?: no: Hazards in your house that might hurt you? and no: Keeping track of your medications? How often do you have trouble taking medicines the way you have been told to take them?: I always take medicine as prescribed How confident are you that you can control & manage most of your health problems?: very confident What is your race?: White Mini Mental State Exam (MMSE) Orientation What is the (year) (season) (date) (day) (month)?: year, season, date, day and month Where are we (state) (county) (town or city) (hospital) (floor)?: state, county, town or city, hospital/clinic and floor Score Score: 10 Activity of Daily Living Bathing - sponge bath, tub bath or shower: receives no assistance (gets in/out by self, if usual bathing means Dressing - getting clothes from closets & drawers, including inner/outer garments & fasteners.: gets clothes & gets completely dressed without help Toileting - going to the 'toilet room' for urine/bowel elimination & cleaning self/arranging clothes: goes to toilet room, cleans self, arranges clothes without help Transfer: moves in & out of bed and chair without help (may use support object) Continence: controls urination/bowel movements completely by self Feeding: feeds self without help Total Score: 0 Using telephone: independent Traveling: independent Shopping: independent Preparing meals: independent Housework: needs assistance Taking medicine: independent Managing money: independent PHQ-9 Over the last 2 weeks, how often have you been bothered by any of the following problems? 1. Little interest or pleasure in doing things: not at all 2. Feeling down, depressed, or hopeless: not at all 3. Trouble falling or staying asleep, or sleeping too much: more than half the days 4. Feeling tired or having little energy: not at all 5. Poor appetite or overeating: not at all 6. Feeling bad about yourself - or that you are a failure or have let yourself or your family down: not at all 7. Trouble concentrating on things, such as reading the newspaper or watching television: not at all 8. Moving or speaking so slowly that other people could have noticed. Or the opposite - being so fidgety or restless that you have been moving around a lot more than usual: not at all 9. Thoughts that you would be better off or of hurting yourself in some way: not at all Total score: 2 Depression Screening Interpretation: Negative Depression Screening Done: Yes [id number] - PHQ-9 Billing: Yes Source: Developed by Drs. Grzegorz Cardenas, Nikki Casas, Nam Kee and colleagues, with an educational yue from [employer]. PHQ-2/PHQ-9 PHQ-2 Over the last 2 weeks, how often have you been bothered by any of the following problems? 1. Little interest or pleasure in doing things: not at all 2. Feeling down, depressed, or hopeless: not at all Total score: 0 If score is 3 or greater, continue 3. Trouble falling or staying asleep, or sleeping too much: more than half the days 4. Feeling tired or having little energy: not at all 5. Poor appetite or overeating: not at all 6. Feeling bad about yourself - or that you are a failure or have let yourself or your family down: not at all 7. Trouble concentrating on things, such as reading the newspaper or watching television: not at all 8. Moving or speaking so slowly that other people could have noticed. Or the opposite - being so fidgety or restless that you have been moving around a lot more than usual: not at all 9. Thoughts that you would be better off or of hurting yourself in some way: not at all Total score: 2 0-4 None-Minimal, 5-9 Mild, 10-14 Moderate, 15-19 Moderately Severe, 20-27 Severe Source: Developed by Drs. Grzegorz Cardenas, Nikki Casas, Nam Kee and colleagues, with an educational yue from [employer]. Thrive Questionnaire Date Thrive assessed: 04/29/24 I am a: Patient What is your living situation today?: I have a steady place to live Within the past 12 months, did the food you bought not last and you didn't have the money to get more?: Never true Within the past 12 months, did you worry whether your food would run out before you got money to buy more?: Never true Do you have trouble paying for medicines?: No Do you have trouble getting transportation to medical appointments?: No Do you have trouble paying your heating and electricity bill?: No Do you have trouble taking care of your child, family member or friend?: No Do you have trouble with day-to-day activities such as bathing, preparing meals, shopping, managing finances, etc.?: No Are you currently unemployed and looking for a job?: No Are you interested in more education?: No Please select the resources that you would like help with: None Currently or been in a relationship where the following occur: No concerns reported THRIVE Score: 0 ROSA-7 AMB Questionnaire ROSA-7 Date ROSA - 7 assessed: 04/29/24 Feeling nervous, anxious, or on edge: 0 = Not at all Not being able to stop or control worryin = Not at all Worrying too much about different things: 0 = Not at all Trouble relaxin = Not at all Being so restless that it is hard to sit still: 0 = Not at all Becoming easily annoyed or irritable: 0 = Not at all Feeling afraid as if something awful might happen: 0 = Not at all Total ROSA-7 score (0-4 normal; 5-9 mild; 10-14 moderate; 15-21 severe): 0 Source: Developed by Drs. Grzegorz Cardenas, Nikki Casas, Nam Kee and colleagues, with an educational yue from [employer]. Review of Systems Const Denies chills, Denies fatigue, Denies fever(s) and Denies headache(s) Eyes Denies blurry vision ENT Denies dysphagia, Denies dizziness, Denies otalgia, Denies headache(s), Denies neck pain, Denies odynophagia and Denies sore throat Card Denies chest pain, Reports palpitations (on and off, not associated with any other symptoms) and Denies dyspnea Resp Denies cough and Denies dyspnea GI Denies abdominal pain, Denies constipation, Denies dysphagia, Denies heartburn, Denies diarrhea, Denies nausea, Denies odynophagia and Denies vomiting Denies dysuria, Denies nocturia and Denies urinary frequency Musc Denies abnormal gait (although his leg muscle pains cause difficulty with balance when walking), Denies back pain, Reports muscle cramps (of both lower extremities - frequent and mostly with increased walking), Reports muscle weakness (in both lower extremities, increased with walking), Denies neck pain and Denies numbness Skin/Breast Denies rash Neuro Denies abnormal gait (although his leg muscle pains cause difficulty with balance when walking), Denies dizziness, Denies headache(s), Denies numbness and Denies paresthesias Psych Denies anxiety and Denies depression Endo Denies fatigue and Reports palpitations (on and off, not associated with any other symptoms) Physical Exam Vital Signs: Last Vital Signs Pulse 55 04/29/24 12:43 BP 138/74 04/29/24 12:43 Pulse Ox 98 04/29/24 12:43 Oxygen Delivery Method Room Air 04/29/24 12:43 BMI result Body Mass Index 24.3 IPPE/AWV: Balance Romberg Yes . Tandem walk No . Walk and Turn No . Rise from sit to stand Yes . Vision Corrective lens No Vision screen pass Hearing Whisper test pass . Urinary incont. no. EKG - last done at cardiology office about 3 to 4 weeks ago. Const General: no acute distress and alert Orientation/consciousness: patient oriented x3 HEENT Ears: TM's normal bilaterally and EAC's normal Throat: Yes posterior oropharynx normal and Yes tonsils normal (no TP congestion) Neck Neck: Yes no lymphadenopathy and Yes supple Thyroid: Thyroid normal Resp Auscultation: clear to auscultation bilaterally, no rales and no wheezes Cardio Rate: regular rate Rhythm: regular rhythm Heart sounds: no murmurs GI Palpation (GI): Soft to palpation and nontender Auscultation: normal bowel sounds General: Yes no CVA tenderness Back/Spine/Pelvis Back: no CVA tenderness Thoracic/Lumbar Spine: No lumbar spinal tenderness Skin Rashes: no rashes Neuro General: patient oriented x3 Cognition (Neuro): normal cognition Extrem General: Yes no clubbing, cyanosis or edema Psych Thought process: Normal thought process present Results Reviewed Results Reviewed: Laboratory Tests 09/29/23 02/13/24 10:50 07:35 Sodium 141 Chloride 106 Creatinine 1.25 Estimated GFR 55 Random Glucose 106 Calcium 9.4 Magnesium 2.2 AST 17 ALT 11 Total Protein 6.7 Albumin 4.2 Prostate Specific Ag 2.04 TSH 3.99 Assessment & Plan Assessment & Plan (1) Medicare annual wellness visit, initial: Code(s): Z00.00 - Encounter for general adult medical examination without abnormal findings Plan: HRA form discussed and completed with patient - forms will be scanned into patient's chart Jr updated (2) Pure hypercholesterolemia: Code(s): E78.00 - Pure hypercholesterolemia, unspecified Plan: Reinforced low cholesterol diet Continue Simvastatin 20 mg Q HS As he has not had his cholesterol levels checked since 2020, have advised him to go and get his labs and fasting lipids done DONALD for follow up (3) Multiple premature ventricular complexes: Code(s): I49.3 - Ventricular premature depolarization Plan: Continue Propranolol ER 60 mg QD, which he states has helped control his recurrent bouts of palpitations Work ups done in the past included Holter monitor that reportedly showed (+) short runs of non-sustained ventricular tachycardia and frequent PVCs EKG was normal Patient has a pacemaker in place (inserted back in the 1970s) but states that he rarely ever feels it pacing Follow up with cardiology (Dr. Randal Cortes) as scheduled (4) GERD (gastroesophageal reflux disease): Code(s): K21.9 - Gastro-esophageal reflux disease without esophagitis Qualifiers: Esophagitis presence: without esophagitis Qualified Code(s): K21.9 - Gastro-esophageal reflux disease without esophagitis Plan: Reinforced dietary restrictions in GERD Continue Omeprazole 40 mg QD He last had EGD done with Dr. Bhatia in 2019 and was advised to just follow up with GI PRN from then on (5) BPH (benign prostatic hyperplasia): Code(s): N40.0 - Benign prostatic hyperplasia without lower urinary tract symptoms Qualifiers: Lower urinary tract symptom presence: symptoms present Lower urinary tract symptom detail: urinary frequency Qualified Code(s): N40.1 - Benign prostatic hyperplasia with lower urinary tract symptoms; R35.0 - Frequency of micturition Plan: Continue Finasteride 5 mg QD and Tamsulosin 0.8 mg Q HS Follow up with urology as scheduled (6) Bilateral lower extremity pain: Code(s): M79.604 - Pain in right leg; M79.605 - Pain in left leg Plan: Have advised patient that his lower extremity symptoms, which have been ongoing for the past 3 years now, may be related to his statin Rx Have advised him to try getting his labs and fasting lipids rechecked DONALD (will also include CPK with his labs for further evaluation) and if his fasting lipids are normal and at goal, he can try holding his Simvastatin for the next week or two to see if his lower extremity symptoms will improve while he is OFF his statin and if they do, then 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 Conversely, if his symptoms do not change with cessation of his statin, then he should go back on his Rx DONALD and should then consider neuropathy or other reasons for his leg symptoms He was sent for arterial duplex of his lower extremities for further evaluation a couple of years ago but he asked to have this cancelled subsequently as he did not believe that his leg symptoms were due to vascular causes at the time Plan To return in 1 year for his next annual wellness exam and follow up visit Orders: Orders Complete Blood Count Auto Diff 04/29/24 D64.9 - Anemia, unspecified Comprehensive Sargeant. Panel Fast 04/29/24 E78.00 - Pure hypercholesterolemia, unspecified UA CC w/rflx Micro + Cult 04/29/24 R30.0 - Dysuria CK, Total+Isoenzymes, Serum 04/29/24 M79.10 - Myalgia, unspecified site Lipid Panel 04/29/24 E78.00 - Pure hypercholesterolemia, unspecified Vitamin D 25-OH Total 04/29/24 E55.9 - Vitamin D deficiency, unspecified Quality Reporting (2019) Depression/Bipolar (159/160/161/177) PHQ-9: Total score: 2 Coding Level of Care Code Medicare First (G0438) Est Pt Level 4 (76460) Diagnoses Medicare annual wellness visit, initial Z00.00 Pure hypercholesterolemia E78.00 Multiple premature ventricular complexes I49.3 Gastroesophageal reflux disease without esophagitis K21.9 Esophagitis presence: without esophagitis Benign prostatic hyperplasia with urinary frequency N40.1; R35.0 Lower urinary tract symptom presence: symptoms present Lower urinary tract symptom detail: urinary frequency Bilateral lower extremity pain M79.604; M79.604
== END 2024-04-29 13:36 | disposition home or self-care (01) ==
PROVIDERS: PCP Internal Medicine; Visit Provider Internal Medicine
DX: Z00.00 Encounter for general adult medical examination without abnormal findings (principal); E78.00 Pure hypercholesterolemia, unspecified; I49.3 Ventricular premature depolarization; K21.9 Gastro-esophageal reflux disease without esophagitis; N40.1 Benign prostatic hyperplasia with lower urinary tract symptoms; R35.0 Frequency of micturition; M79.604 Pain in right leg; M79.605 Pain in left leg
CPT/HCPCS: 99214; G0438; G0439

== ENCOUNTER 2024-04-30 07:30 | Outpatient (REF) | payer MEDICARE, SELFPAY ==
[2024-04-30 10:54] LABS: MANUAL DIFF FLAG NO
[2024-04-30 11:05] LABS: Basophils Absolute Auto 0.1 X10*3/uL (0.0-0.2); Basophils Percent Auto 0.7 % (0-2); Eosinophils Absolute Auto 0.5 X10*3/uL (0.0-0.4); Eosinophils Percent Auto 7.2 % (0-4); Hematocrit 40.4 % (42.0-52.0); Hemoglobin 13.7 g/dl (14.0-18.0); Imm Gran Abs Auto 0.05 X10*3/uL (0.00-0.03); Imm Gran Pct Auto 0.7 % (0.0-0.4); Lymphocytes Absolute Auto 1.4 X10*3/uL (1.2-4.9); Lymphocytes Percent Auto 20.2 % (20-40); Mean Corpuscular HGB Conc 33.9 g/dl (31.0-36.0); Mean Corpuscular Hemoglobin 30.9 pg (27.0-33.0); Mean Platelet Volume 9.9 fL (9.4-12.4); Monocytes Absolute Auto 0.8 X10*3/uL (0.1-1.2); Monocytes Percent Auto 10.7 % (2-11); Neutrophils Absolute Auto 4.3 x10*3/uL (2.0-8.3); Neutrophils Percent Auto 60.5 % (45-73); Platelet Count 194 X10*3/uL (160-400); Red Blood Count 4.44 X10*6/uL (4.60-5.80); Red Cell Distribution Width 13.2 % (11.0-16.0); White Blood Count 7.1 X10*3/uL (4.8-10.8)
[2024-04-30 11:18] LABS: Alanine Aminotransferase 10 U/L (0-40); Albumin Level 4.1 g/dL (3.5-5.0); Alkaline Phosphatase 64 U/L (39-117); Anion Gap 9 (12-20); Aspartate Amino Transferase 14 U/L (5-37); Bilirubin Total 0.9 mg/dL (0.0-1.0); Blood Urea Nitrogen 21 mg/dL (9-16); Calcium 9.6 mg/dL (8.4-10.2); Carbon Dioxide 26 mmol/L (22-29); Chloride 106 mmol/L (96-108); Cholesterol 150 mg/dL (<200); Estimated Glomerular Filt Rate 58; Glucose Fasting 103 mg/dL (60-99); HDL Cholesterol 51 mg/dL (>40); LDL Cholesterol Calculated 83 mg/dL (<100); Sodium 137 mmol/L (135-145); Total Protein 6.5 g/dL (6.5-8.0); Triglycerides 82 mg/dL (<150)
[2024-04-30 11:33] LABS: Vitamin D 25-OH Total 21.1 ng/mL (>30)
[2024-05-04 20:29] LABS: CK-BB 4 % (None Detected); CK-MB 0 % (<5); CK-MM 96 % (95-100); Creatine Kinase Isoenzyme Itrp BB BAND PRESENT.; Creatine Kinase,Total,Serum 48 U/L (44-196)
== END 2024-04-30 07:31 | disposition home or self-care (01) ==
LOC: HO.10HDL 07:30
PROVIDERS: Visit Provider Internal Medicine
DX: D64.9 Anemia, unspecified (principal); E78.00 Pure hypercholesterolemia, unspecified; E55.9 Vitamin D deficiency, unspecified; M79.10 Myalgia, unspecified site
CPT/HCPCS: 36415; 80053; 80061; 82306; 82552; 85025

== ENCOUNTER 2024-05-17 10:46 | Outpatient (AMB) | payer MEDICARE, SELFPAY ==
[2024-05-17 10:51] VITALS: BP 130/64; PULSE 62; O2SAT 98; BMI 24.1
--- NOTE | 2024-05-17 10:51 | MHC.OFFVIS ---
Vital Signs 05/17/24 10:51 Height 5 ft 10 in Weight 168 lb BMI 24.1 BP 130/64 Blood Pressure Location Rt brachial Position Sitting Pulse 62 Pulse Source Pulse Oximeter Pulse Oximetry (%) 98 Oxygen Delivery Method Room Air Intake Visit Reasons: Pain on left and right leg Intake Note: Patient is here with fatigue in his thighs, and had abnormal bloodwork. 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 Over the last 2-3 years patient has been having bilateral thigh muscle soreness and fatigue with exertion. He states that he would have to stop after a 10 minute walk due to thigh soreness and fatigue. His symptoms improve after sitting down. He would not have any associated symptoms such as cough, shortness of breath or chest pain. He denies difficulty getting up the stairs, difficultly getting up from a toilet seat or reaching with his arms above his head. He has had sciatica in 2002 and required a few injections. He also had right knee arthroscopic surgery years ago. He denies any unintentional weight loss, fevers, skin rashes. Denies any swollen joints. He gets some tingling and numbness of his left hand that he attributes to early carpal tunnel syndrome. His labs showed elevated CK BB fraction. He is unaware of any family history of an autoimmune rheumatic disease. Denies any history of DVT/PE. Patient has sick sinus syndrome and has had a pacemaker since 70s Patient discontinued his simvastatin over the last 2-3 weeks without any noticeable improvement [facility] Medical History Multiple premature ventricular complexes GERD (gastroesophageal reflux disease) Pure hypercholesterolemia Groin pain Obstructive and reflux uropathy Wrist tendonitis Cardiac pacemaker Surgical History History of colonoscopy History of surgery Trigger finger History of tonsillectomy H/O arthroscopy of right knee History of appendectomy Family History Father Cancer Mother Cancer Social History Housing: House Alcohol intake: current Alcohol intake frequency: holidays/special occasions only Patient Tobacco Use Status: Never used Tobacco e-Cigarette/Vaping Use: Never Used Second Hand Smoke Exposure: No service: Yes 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 Review of Systems Const Denies body aches, Denies fever(s), Denies weight gain and Denies weight loss Card Reports no additional complaints and Denies dyspnea on exertion Resp Reports no additional complaints, Denies cough and Denies dyspnea on exertion Musc Reports back pain, Denies joint swelling, Denies muscle cramps and Reports muscle weakness Skin/Breast Denies rash Physical Exam Vital Signs: Last Vital Signs Pulse 62 05/17/24 10:51 BP 130/64 05/17/24 10:51 Pulse Ox 98 05/17/24 10:51 Oxygen Delivery Method Room Air 05/17/24 10:51 BMI result Body Mass Index 24.1 Const General: cooperative, healthy appearing and comfortable Nutritional Appearance: average body habitus Orientation/consciousness: patient oriented x3 Limitations: no limitations HEENT Head: Yes normocephalic and Yes atraumatic Mouth: moist mucous membranes Resp Effort & Inspection: normal respiratory effort and able to speak in complete sentences Auscultation: clear to auscultation bilaterally Cardio Rate: regular rate Skin General skin exam: no rashes or lesions noted Neuro General: patient oriented x3 Extrem Other: Osteoarthritic changes of both hands with no active synovitis Negative Tinel sign bilaterally Positive Durkan's test on the left Range of motion of hands, wrists elbows and shoulders without pain Normal nailfold capillaroscopy Proximal muscle strength 5/5 all 4 extremities Normal neck flexion strength Able to get up from seated position without assistance Negative straight leg raise test bilaterally Bilateral knee crepitus No knee pain with flexion-extension bilaterally Grossly normal sensation both legs No footdrop bilaterally Intact position sense of toes bilaterally Assessment & Plan Assessment & Plan (1) Myalgia: Code(s): M79.10 - Myalgia, unspecified site Category: Medical Plan: This is an 83-year-old male presents for evaluation of elevated CK BB fraction. This was ordered in the context of bilateral thigh soreness and weakness with exertion. Upon evaluation I do not see any signs suggestive of an autoimmune rheumatic disease. Patient has intact proximal muscle strength. Normal total CPK, no anemia, no rashes suggestive of an autoimmune rheumatic disease, no active synovitis, no fevers, no unintentional weight loss. Patient discontinued his simvastatin for the last 2-3 weeks without any noticeable improvement. 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 Concomitant bilateral knee osteoarthritis may also be involved. We discussed physical therapy referral. Patient was not interested at that time, states that he will do some exercises at home, consider PT evaluation if no improvement I do not have an explanation for his elevated CK-bb fraction. But at this time there is no autoimmune rheumatic disease that would explain it. Discussed symptoms and signs that are suggestive of an autoimmune rheumatic disease. Advised patient to return as needed Plan I spent 34 minutes reviewing patient's chart, evaluating patient, counseling patient and documenting in the chart Coding Level of Care Code New Pt Level 3 (46337) Diagnoses Myalgia M79.10
== END 2024-05-17 16:22 | disposition home or self-care (01) ==
PROVIDERS: PCP Internal Medicine; Visit Provider Student in an Organized Health Care Education/Training Program
DX: M79.10 Myalgia, unspecified site (principal)
CPT/HCPCS: 99203

== ENCOUNTER → 2024-05-17 10:46 | Outpatient (BNVA) | payer MEDICARE, SELFPAY | PROVIDERS: PCP Internal Medicine; Visit Provider Student in an Organized Health Care Education/Training Program | DX: M79.10 Myalgia, unspecified site (principal) | CPT/HCPCS: 99202 ==

== ENCOUNTER 2024-06-03 07:32 | Outpatient (REF) | payer MEDICARE, SELFPAY ==
[2024-06-03 09:19] LABS: Alanine Aminotransferase 9 U/L (0-40); Albumin Level 4.2 g/dL (3.5-5.0); Alkaline Phosphatase 66 U/L (39-117); Anion Gap 11 (12-20); Aspartate Amino Transferase 13 U/L (5-37); Bilirubin Total 0.7 mg/dL (0.0-1.0); Blood Urea Nitrogen 21 mg/dL (9-16); Calcium 9.7 mg/dL (8.4-10.2); Carbon Dioxide 26 mmol/L (22-29); Chloride 106 mmol/L (96-108); Cholesterol 238 mg/dL (<200); Estimated Glomerular Filt Rate 56; Glucose Fasting 106 mg/dL (60-99); HDL Cholesterol 52 mg/dL (>40); LDL Cholesterol Calculated 169 mg/dL (<100); Potassium 4.1 mmol/L (3.3-5.1); Sodium 139 mmol/L (135-145); Total Protein 6.7 g/dL (6.5-8.0); Triglycerides 88 mg/dL (<150)
[2024-06-03 09:58] LABS: TSH reflex Free T4 3.62 uIU/mL (0.32-4.0)
[2024-06-07 20:29] LABS: CK-BB None Detected (None Detected); CK-MB 0 % (<5); CK-MM 100 % (95-100); Creatine Kinase,Total,Serum 41 U/L (44-196)
== END 2024-06-03 07:33 | disposition home or self-care (01) ==
LOC: HO.LAB 07:32
PROVIDERS: PCP Internal Medicine; Visit Provider Internal Medicine
DX: M79.10 Myalgia, unspecified site (principal); E78.00 Pure hypercholesterolemia, unspecified
CPT/HCPCS: 36415; 80053; 80061; 82552; 84443

== ENCOUNTER 2024-09-01 17:34 | Inpatient (IN) | payer MEDICARE, SELFPAY ==
--- NOTE | ~2024-09-01 | XR_ITS ---
CLINICAL HISTORY: ? pna 2 view chest x-ray Comparison: CR/SR - XR CHEST 2V - 12/28/23 10:58 EDT Findings: The lungs are hyperaerated. There is bronchial wall thickening. There are patchy airspace opacities in the right lower lobe. Stable small granuloma in the left lung. No pleural effusion or pneumothorax. Cardiac silhouette is prominent. No pulmonary vascular congestion. Again seen are cardiac pacemaker leads. The pulse generator projects over the left hemithorax. Multilevel thoracic syndesmophytes. Pectus excavatum. IMPRESSION: 1. Bronchial wall thickening, which can be seen with asthma, reactive airways process or viral illness. 2. Superimposed patchy right lower lobe infiltrates. This document has been electronically signed by: La Giron DO on 09/01/2024 21:02:34
[2024-09-01 17:58] VITALS: BP 137/62; PULSE 84; RESP 18; TEMP 36.6; O2SAT 99; BMI 23.7
--- NOTE | 2024-09-01 17:58 | ED.GENADULT ---
HPI - General Adult General Chief complaint: Nausea/Vomiting/Diarrhea Stated complaint: vomiting,diarrhea,fell, nose laceration Time Seen by Provider: 09/01/24 20:45 Source: patient Mode of arrival: EMS Limitations: no limitations History of Present Illness ED Provider: HPI narrative: Patient Otherwise in stable health brought his yesterday for vomiting and diarrhea and admitted for pneumonia and viral gastroenteritis patient went home earlier today at home he was feeling very weak unable to ambulate very tired bent down and almost passed out hitting his nose to the dresser with superficial laceration all day patient has been feeling very weak with chills vomited several times had several times diarrhea feels weak and tired coughing mostly dry Related Data Home Medications ?Medication ?Instructions ?Recorded ?Confirmed vitamins A,C,V-wrax-sowmvn 4,296 1 cap PO BID 05/28/21 05/17/24 mcg-226 mg-90 mg capsule (ICaps AREDS) omeprazole 20 mg capsule,delayed 40 mg PO DAILY 08/16/21 05/17/24 release propranolol 60 mg capsule,24 60 mg PO DAILY 04/29/24 05/17/24 hr,extended release Previous Rx's ?Medication ?Instructions ?Recorded arm brace (Wrist Brace) #1 ea 06/20/20 clotrimazole-betamethasone 1 1 appl topical BID 4 weeks #45 12/24/22 %-0.05 % topical cream grams oxycodone 5 mg tablet 5 mg PO Q6H PRN pain #5 tabs 01/16/23 simvastatin 20 mg tablet 20 mg PO BEDTIME #90 tabs 08/22/23 finasteride 5 mg tablet 5 mg PO DAILY 90 days #90 tabs 01/22/24 tamsulosin 0.4 mg capsule 0.8 mg (2 x 0.4 mg) PO DAILY 90 01/22/24 days #180 caps Allergies Allergy/AdvReac Type Severity Reaction Status Date / Time No Known Allergies Allergy Mild N/A Verified 09/01/24 18:00 Review of Systems Review of Systems: Yes all other systems are reviewed and are negative [facility] Past Medical History Medical History Multiple premature ventricular complexes GERD (gastroesophageal reflux disease) Pure hypercholesterolemia Groin pain Obstructive and reflux uropathy Wrist tendonitis Cardiac pacemaker Surgical History History of colonoscopy History of surgery Trigger finger History of tonsillectomy H/O arthroscopy of right knee History of appendectomy Family History Family History Father Cancer Mother Cancer Social History Social History Housing: House Alcohol intake: current Alcohol intake frequency: holidays/special occasions only Patient Tobacco Use Status: Never used Tobacco Smoked in Last 30 Days: No e-Cigarette/Vaping Use: Never Used Second Hand Smoke Exposure: No Use of substances other than those prescribed or required for medical reasons: No Advance Directives: Yes Advance Directives Information Provided: Yes Advance Directives on File: No Do you have a plan to hurt others: No Plan Nutrition Risks: No Nutritional Risk service: Yes 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 Oriented X3. No acute distress. Eyes: No pallor or icterus ENT: Pharynx normal. Oral Mucosa moist superficial laceration well approximated nasal bridge 2 cm Neck: Normal inspection. Neck supple. CVS: Normal heart rate and rhythm. Pulses normal. Respiratory: No respiratory distress. Equal air entry bilateral, no wheezing/rales/rhonchi Abdomen: Soft and nontender. Bowel sounds are present, no mass palpable, no CVA tenderness Skin: Skin warm and dry. Normal skin color. Normal skin turgor. Extremities: No lower extremity edema. No calf tenderness Neuro: Oriented X 3. No motor deficit. No sensory deficit.No cerebellar signs , cranial nerves II-XII intact Course Course Course Narrative: chiquis TAVAREZ is a rapid medical exam performed by Uri Mcgraw please refer to primary provider for complete H&P- 84-year-old male presents for evaluation of vomiting. The patient also has a laceration to the bridge of his nose. He did not fall but lean forward and struck his head on a table when he went to vomit. He declined CT imaging of the brain/facial bones. He gave himself meclizine just prior to arrival. 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 Plan for labs and viral testing Medications Administered Generic Name Dose Route Start Last Admin Trade Name Freq PRN Reason Stop Dose Admin Enoxaparin Sodium 40 mg 09/01/24 23:30 09/02/24 00:53 Enoxaparin Sodium 40 Mg/0.4 Ml Syringe SUBCUT Not Given Q24H DEJUAN Sodium Chloride 3 ml 09/02/24 00:00 09/02/24 00:48 0.9 % Sodium Chloride Flush 3 Ml Syringe IVFLUSH Not Given QSHIFT DEJUAN Discontinued Medications Generic Name Dose Route Start Last Admin Trade Name Freq PRN Reason Stop Dose Admin Ceftriaxone Sodium 1 gm 09/01/24 21:06 09/01/24 21:34 Ceftriaxone Sodium 1 Gm Vial IVPUSH 09/01/24 21:07 1 gm ONCE ONE Administration Azithromycin 500 mg/ Sodium 250 mls @ 125 mls/hr 09/01/24 21:06 09/02/24 00:28 Chloride IV 09/01/24 23:05 Infused ONCE ONE Infusion Sodium Chloride 1,000 mls @ 999 mls/hr 09/01/24 21:08 09/01/24 22:35 Ns IV 09/01/24 22:08 Infused .Q1H1M ONE Infusion Ondansetron HCl 4 mg 09/01/24 22:23 09/01/24 22:40 Ondansetron Hcl 4 Mg/2 Ml Vial IVPUSH 09/01/24 22:24 4 mg ONCE ONE Administration Propranolol HCl 60 mg 09/02/24 01:00 09/02/24 00:56 Propranolol Hcl La 60 Mg Cap.Sa.24h PO 09/02/24 01:01 60 mg ONCE ONE Administration Protocol Tamsulosin HCl 0.8 mg 09/01/24 23:42 09/02/24 00:51 Tamsulosin Hcl 0.4 Mg Capsule PO 09/01/24 23:43 0.8 mg ONCE ONE Administration Procedures Laceration Laceration 1: Site: face (Nose) Size (cm): 2 Description: linear Skin layer closed with: other (Skin glue) Medical Decision Making Medical Decision Making [facility] Narrative: Patient with increased weakness with acute gastroenteritis with leukocytosis chest x-ray showing right lower lobe infiltrate patient has received IV fluids started feeling better but still feeling weak orthostatics were normal will admit patient for increased weakness systemic inflammatory response with pneumonia and near-syncope Differential Diagnosis Differential Diagnoses: The differential diagnosis associated with the presentation includes Admission/Observation Consideration of admission/observation: Escalation of care including admission/observation considered Lab Data [facility] Lab Attestation statement: I reviewed the patient's lab results. 09/01/24 18:09 09/01/24 18:09 Labs: Lab Results 09/01/24 09/01/24 Range/Units 18:09 21:21 WBC 17.3 H (4.8-10.8) X10*3/uL RBC 4.93 (4.60-5.80) X10*6/uL Hgb 15.6 (14.0-18.0) g/dl Hct 45.4 (42.0-52.0) % MCV 92.1 (80.0-98.0) fL MCH 31.6 (27.0-33.0) pg MCHC 34.4 (31.0-36.0) g/dl RDW 12.9 (11.0-16.0) % Plt Count 188 (160-400) X10*3/uL MPV 9.4 (9.4-12.4) fL Immature Gran % (Auto) 1.0 H (0.0-0.4) % Neut % (Auto) 95.1 H (45-73) % Lymph % (Auto) 0.6 L (20-40) % [place] % (Auto) 2.9 (2-11) % Eos % (Auto) 0.2 (0-4) % Baso % (Auto) 0.2 (0-2) % Lymph # (Auto) 0.1 L (1.2-4.9) X10*3/uL [place] # (Auto) 0.5 (0.1-1.2) X10*3/uL Eos # (Auto) 0.0 (0.0-0.4) X10*3/uL Baso # (Auto) 0.0 (0.0-0.2) X10*3/uL Abs Immat Gran (auto) 0.17 H (0.00-0.03) X10*3/uL Absolute Neuts (auto) 16.4 H (2.0-8.3) x10*3/uL Absolute Nucleated RBC 0.000 (0.0-0.012) X10*3/uL Nucleated RBC % (auto) 0.0 (0.0-0.2) /100WBC Smear Tech's Comments VERIFIED Sodium 140 (135-145) mmol/L Potassium 4.2 (3.3-5.1) mmol/L Chloride 107 (96-108) mmol/L Carbon Dioxide 23 (22-29) mmol/L Anion Gap 14 (12-20) BUN 27 H (9-16) mg/dL Creatinine 1.19 (0.5-1.4) mg/dL Estim Creat Clear Calc 46.0 Estimated GFR 58 Random Glucose 139 H (60-115) mg/dL Lactic Acid 1.3 (0.5-2.0) mmol/L Calcium 9.2 (8.4-10.2) mg/dL Total Bilirubin 1.5 H (0.0-1.0) mg/dL AST 24 (5-37) U/L ALT 16 (0-40) U/L Alkaline Phosphatase 75 (39-117) U/L Total Protein 7.5 (6.5-8.0) g/dL Albumin 4.6 (3.5-5.0) g/dL Lipase 22 (8-78) U/L Influenza Type A (PCR) NEGATIVE (Negative) Influenza Type B (PCR) NEGATIVE (Negative) RSV RNA Qual (PCR) NEGATIVE (Negative) SARS-CoV-2 RNA (RT-PCR) NEGATIVE (Negative) Discharge Plan Discharge Clinical Impression: Community acquired pneumonia, Gastroenteritis, Dehydration, Near syncope Patient Disposition: Admitted As Inpatient
[2024-09-01 18:16] LABS: Basophils Percent Auto 0.2 % (0-2); Eosinophils Percent Auto 0.2 % (0-4); Hematocrit 45.4 % (42.0-52.0); Hemoglobin 15.6 g/dl (14.0-18.0); Imm Gran Abs Auto 0.17 X10*3/uL (0.00-0.03); Lymphocytes Absolute Auto 0.1 X10*3/uL (1.2-4.9); Lymphocytes Percent Auto 0.6 % (20-40); MANUAL DIFF FLAG SCAN; Mean Corpuscular HGB Conc 34.4 g/dl (31.0-36.0); Mean Corpuscular Hemoglobin 31.6 pg (27.0-33.0); Mean Corpuscular Volume 92.1 fL (80.0-98.0); Mean Platelet Volume 9.4 fL (9.4-12.4); Monocytes Absolute Auto 0.5 X10*3/uL (0.1-1.2); Monocytes Percent Auto 2.9 % (2-11); Neutrophils Absolute Auto 16.4 x10*3/uL (2.0-8.3); Neutrophils Percent Auto 95.1 % (45-73); Platelet Count 188 X10*3/uL (160-400); Red Blood Count 4.93 X10*6/uL (4.60-5.80); Red Cell Distribution Width 12.9 % (11.0-16.0); SCAN SMEAR FLAG 1; White Blood Count 17.3 X10*3/uL (4.8-10.8)
[2024-09-01 18:28] LABS: Alanine Aminotransferase 16 U/L (0-40); Albumin Level 4.6 g/dL (3.5-5.0); Alkaline Phosphatase 75 U/L (39-117); Anion Gap 14 (12-20); Aspartate Amino Transferase 24 U/L (5-37); Bilirubin Total 1.5 mg/dL (0.0-1.0); Blood Urea Nitrogen 27 mg/dL (9-16); Calcium 9.2 mg/dL (8.4-10.2); Carbon Dioxide 23 mmol/L (22-29); Chloride 107 mmol/L (96-108); Estimated Glomerular Filt Rate 58; Glucose Random 139 mg/dL (60-115); Lipase 22 U/L (8-78); Potassium 4.2 mmol/L (3.3-5.1); Sodium 140 mmol/L (135-145); Total Protein 7.5 g/dL (6.5-8.0)
[2024-09-01 18:43] LABS: SLIDE REVIEW VERIFIED
[2024-09-01 18:51] LABS: Influenza A PCR NEGATIVE (Negative); Influenza B PCR NEGATIVE (Negative); Resp Syncy Virus RNA Qual PCR NEGATIVE (Negative); SARS COV2 PCR INHOUSE NEGATIVE (Negative)
--- NOTE | 2024-09-01 20:03 | PC.NURSE ---
pt reporting nausea vomiting, diarrhea, chills, hot flashes since this AM. admitted upstairs for PNA.
[2024-09-01] MEDS: cefTRIAXone sodium 1 GM VIAL IVPUSH (21:34)
[2024-09-01] MEDS: 0.9 % Sodium Chloride 1,000 ML 999 ML IV (21:34)
[2024-09-01 21:48] LABS: Lactic Acid 1.3 mmol/L (0.5-2.0)
[2024-09-01 22:35] VITALS: BP 154/71; PULSE 84; RESP 20; TEMP 36.4; O2SAT 97
[2024-09-01] MEDS: Azithromycin 500 MG in 0.9 % Sodium Chloride 250 ML 125 MG IV (22:40)
[2024-09-01] MEDS: ondansetron HCL 4 MG/2 ML VIAL IVPUSH (22:40)
[2024-09-01 22:45] VITALS: BP 153/72; PULSE 90
[2024-09-01 22:46] VITALS: BP 143/71; PULSE 95
[2024-09-01 22:48] VITALS: BP 154/71; PULSE 96
--- NOTE | 2024-09-01 23:27 | P.HPHOSP_ITS ---
History of Present Illness Date of Service: 09/01/24 Chief Complaint: Chills and cough This is a 84-year-old male with pertinent history of multiple PVCs, gastroesophageal reflux disease, mixed hyperlipidemia, BPH who presents to the emergency department for evaluation of chills and cough. Patient states he started having symptoms on the day of presentation. His is admitted to [facility] for hypoxia and sepsis due to pneumonia and gastroenteritis. Patient began having similar symptoms 1 day after his was admitted. He is complaining of chills and cough. Also had multiple episodes of nonbloody emesis and nonbloody diarrhea. Patient states he bent down, he felt weak, fell and hit his nose. States he did not pass out. No jerking movement of extremities. No dizziness or lightheadedness prior to the fall. No chest pain or palpitations prior to the fall. Endorses malaise and easy fatigability. No chest pain, palpitations, abdominal pain, changes in urinary or bowel habits. In the emergency department, imaging with right-sided pneumonia and patient was found to be septic with leukocytosis. Given IV crystalloids and empiric IV antibiotics in the ER for cap coverage. Review of Systems 2 Constitutional: Constitutional: Reports chills, Reports malaise, Reports poor appetite and Reports weakness Cardiovascular: Cardiovascular: Reports no additional cardiovascular complaints Respiratory: Respiratory: Reports no additional respiratory complaints Gastrointestinal: Gastrointestinal: Reports diarrhea, Reports loose stools, Reports nausea and Reports vomiting Genitourinary: Genitourinary: Reports no additional male genitourinary complaints Neurologic: Reports weakness [facility] Medical History Multiple premature ventricular complexes GERD (gastroesophageal reflux disease) Pure hypercholesterolemia Groin pain Obstructive and reflux uropathy Wrist tendonitis Cardiac pacemaker Family History Father Cancer Mother Cancer Surgical History History of colonoscopy History of surgery Trigger finger History of tonsillectomy H/O arthroscopy of right knee History of appendectomy Social History Housing: House Alcohol intake: current Alcohol intake frequency: holidays/special occasions only Patient Tobacco Use Status: Never used Tobacco Smoked in Last 30 Days: No e-Cigarette/Vaping Use: Never Used Second Hand Smoke Exposure: No Use of substances other than those prescribed or required for medical reasons: No Advance Directives: Yes Advance Directives Information Provided: Yes Advance Directives on File: No Do you have a plan to hurt others: No Plan Nutrition Risks: No Nutritional Risk service: Yes 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 Allergy/AdvReac Type Severity Reaction Status Date / Time No Known Allergies Allergy Mild N/A Verified 09/01/24 18:00 Home Medications ?Medication ?Instructions ?Recorded ?Confirmed ?Last Taken ?Type vitamins A,C,B-kscq-gxbqmk 4,296 1 cap PO BID 05/28/21 05/17/24 Unknown History mcg-226 mg-90 mg capsule (ICaps AREDS) omeprazole 20 mg capsule,delayed 40 mg PO DAILY 08/16/21 05/17/24 Unknown History release propranolol 60 mg capsule,24 60 mg PO DAILY 04/29/24 05/17/24 Unknown History hr,extended release Physical Exam 2 Vital Signs and Narrative: Vital Signs: Last Vital Signs Temp 97.5 F 09/01/24 22:35 Pulse 96 09/01/24 22:48 Resp 20 09/01/24 22:35 BP 154/71 H 09/01/24 22:48 Pulse Ox 97 09/01/24 22:35 O2 Del Method Room Air 09/01/24 22:35 BMI result Body Mass Index 23.7 Elderly male lying in bed in no distress Neck supple, no JVD, nose laceration seen Regular rate and rhythm, S1-S2 heard Right-sided crackles present Abdomen soft nontender, no guarding, no rigidity Patient is awake, alert and oriented to self, place, time and person ; no focal motor deficit Psych: Normal mood No pedal edema Results Labs 09/01/24 18:09 09/01/24 18:09 Labs: Laboratory Results - last 24 hr 09/01/24 09/01/24 18:09 21:21 MCV 92.1 MCH 31.6 MCHC 34.4 RDW 12.9 Plt Count 188 MPV 9.4 Immature Gran % (Auto) 1.0 H Neut % (Auto) 95.1 H Lymph % (Auto) 0.6 L [place] % (Auto) 2.9 Eos % (Auto) 0.2 Baso % (Auto) 0.2 Lymph # (Auto) 0.1 L [place] # (Auto) 0.5 Eos # (Auto) 0.0 Baso # (Auto) 0.0 Abs Immat Gran (auto) 0.17 H Absolute Neuts (auto) 16.4 H Absolute Nucleated RBC 0.000 Nucleated RBC % (auto) 0.0 Smear Tech's Comments VERIFIED Anion Gap 14 Estim Creat Clear Calc 46.0 Estimated GFR 58 Random Glucose 139 H Lactic Acid 1.3 Calcium 9.2 Total Bilirubin 1.5 H AST 24 ALT 16 Alkaline Phosphatase 75 Total Protein 7.5 Albumin 4.6 Lipase 22 Influenza Type A (PCR) NEGATIVE Influenza Type B (PCR) NEGATIVE RSV RNA Qual (PCR) NEGATIVE SARS-CoV-2 RNA (RT-PCR) NEGATIVE Assessment and Plan (1) Community acquired pneumonia: Status: Acute (2) Sepsis: Status: Acute Plan This is a 84-year-old male with pertinent history of multiple PVCs, gastroesophageal reflux disease, mixed hyperlipidemia, BPH who presents to the emergency department for evaluation of chills and cough. #. Sepsis due to right-sided pneumonia: Resuscitated IV crystalloids. Initiating IV ceftriaxone and azithromycin for cap coverage. Follow blood culture and sputum culture #. Vomiting/diarrhea: GI panel pending. On antibiotics as above #. Nose laceration due to fall: ?due to weakness in the setting of above. Orthostatics negative in the ER. Denies syncope, tongue bite, urinary/bowel incontinence, jerking movement of extremities, chest pain or palpitations, dizziness or lightheadedness prior to the fall. Will monitor on tele #. BPH: On Flomax and finasteride #. Gastroesophageal reflux disease: On PPI #. History of multiple PVCs: On propranolol Med rec pending DVT prophylaxis: Lovenox Full code. Discussed with patient at bedside Admit as inpatient and will require two night minimum hospital stay for IV antibiotics (as above), which is not possible in a lesser acute setting. Quality Stroke Does the patient have a stroke diagnosis?: No VTE Prior VTE?: No VTE Risk Level:: Medical - moderate - high VTE Device Contraindication: Treatment Not Indicated VTE Drug Contraindication: N/A - Med Ordered
--- NOTE | 2024-09-02 00:45 | PC.NURSE ---
meds late as they took over > 1 hr for meds to be verified ,even after calling pharmacy to ask about them .
[2024-09-02] MEDS: Tamsulosin HCL 0.4 MG CAPSULE 0.8 MG PO (00:51)
[2024-09-02] MEDS: Propranolol HCL LA 60 MG CAP.SA.24H PO (00:56)
[2024-09-02 05:47] LABS: Basophils Percent Auto 0.2 % (0-2); Eosinophils Percent Auto 0.1 % (0-4); Hematocrit 39.2 % (42.0-52.0); Hemoglobin 13.7 g/dl (14.0-18.0); Imm Gran Abs Auto 0.07 X10*3/uL (0.00-0.03); Imm Gran Pct Auto 0.6 % (0.0-0.4); Lymphocytes Absolute Auto 0.2 X10*3/uL (1.2-4.9); Lymphocytes Percent Auto 1.6 % (20-40); Mean Corpuscular HGB Conc 34.9 g/dl (31.0-36.0); Mean Corpuscular Hemoglobin 31.6 pg (27.0-33.0); Mean Corpuscular Volume 90.5 fL (80.0-98.0); Mean Platelet Volume 9.5 fL (9.4-12.4); Monocytes Absolute Auto 0.9 X10*3/uL (0.1-1.2); Monocytes Percent Auto 6.8 % (2-11); Neutrophils Absolute Auto 11.4 x10*3/uL (2.0-8.3); Neutrophils Percent Auto 90.7 % (45-73); Platelet Count 166 X10*3/uL (160-400); Red Blood Count 4.33 X10*6/uL (4.60-5.80); SCAN SMEAR FLAG 1; White Blood Count 12.5 X10*3/uL (4.8-10.8)
[2024-09-02 05:48] LABS: MANUAL DIFF FLAG SCAN
[2024-09-02 06:00] LABS: Anion Gap 13 (12-20); Blood Urea Nitrogen 22 mg/dL (9-16); Calcium 8.6 mg/dL (8.4-10.2); Carbon Dioxide 19 mmol/L (22-29); Chloride 111 mmol/L (96-108); Creatinine Clr Calc Pharmacy 50.2; Estimated Glomerular Filt Rate > 60; Glucose Random 106 mg/dL (60-115); Potassium 3.6 mmol/L (3.3-5.1); Sodium 139 mmol/L (135-145)
[2024-09-02 06:32] LABS: SLIDE REVIEW VERIFIED
[2024-09-02 07:12] VITALS: BP 147/69; PULSE 91; RESP 18; TEMP 36.8; O2SAT 98
--- NOTE | 2024-09-02 07:27 | ECG_ITS ---
Test Reason : FALL Blood Pressure : / mmHG Vent. Rate : 075 BPM Atrial Rate : 075 BPM P-R Int : 184 ms QRS Dur : 078 ms QT Int : 394 ms P-R-T Axes : 078 028 043 degrees QTc Int : 439 ms Normal sinus rhythm Low voltage QRS Borderline ECG When compared with ECG of 21-MAY-2019 11:37, Premature ventricular complexes are no longer Present Nonspecific T wave abnormality now evident in Anterior leads Referred By: Nicho Alcocer Electronically Signed By:LAURIE CABA MD
--- NOTE | 2024-09-02 07:30 | MHC.EDTECH ---
Hourly round. vitals, and EKG completed, IG and the urine collected and send to the lab, patient rest quietly in his bed within call belt in his reach.
--- NOTE | 2024-09-02 07:39 | HO.PM.IMPN ---
Subjective Subjective Date of Service: 09/02/24 Physical Exam Vital Signs: Vital Signs: Last Vital Signs Temp 98.3 F 09/02/24 07:12 Pulse 91 09/02/24 07:12 Resp 18 09/02/24 07:12 BP 147/69 H 09/02/24 07:12 Pulse Ox 98 09/02/24 07:12 O2 Del Method Room Air 09/02/24 07:12 BMI result Body Mass Index 23.7 Objective Data Active Medications Acetaminophen (Acetaminophen 325 Mg Tablet) 650 mg PO Q6H PRN PRN Reason: Pain, Mild 1-3,fever,headache Benzonatate (Benzonatate 100 Mg Capsule) 100 mg PO TID PRN PRN Reason: Cough Calcium Carbonate (Calcium Carbonate 750 Mg Tab.Chew) 750 mg PO Q4H PRN PRN Reason: Heartburn Ceftriaxone Sodium (Ceftriaxone Sodium 1 Gm Vial) 1 gm IVPUSH Q24H DEJUAN Enoxaparin Sodium (Enoxaparin Sodium 40 Mg/0.4 Ml Syringe) 40 mg SUBCUT Q24H [facility] Last Admin: 09/02/24 00:53 Dose: Not Given Documented By: BUNNY Non-Admin Reason: Patient Refused Azithromycin 500 mg/ Sodium (Chloride) 250 mls @ 125 mls/hr IV Q24H DEJUAN Magnesium Hydroxide (Milk Of Magnesia 30 Ml Oral.Susp) 30 ml PO DAILY PRN PRN Reason: Constipation Melatonin (Melatonin 3 Mg Tablet) 6 mg PO BEDTIME PRN PRN Reason: Insomnia Ondansetron HCl (Ondansetron Hcl 4 Mg/2 Ml Vial) 4 mg IVPUSH Q8H PRN PRN Reason: Nausea and Vomiting Sodium Chloride (0.9 % Sodium Chloride Flush 3 Ml Syringe) 3 ml IVFLUSH QSHIFT [facility] Last Admin: 09/02/24 00:48 Dose: Not Given Documented By: BUNNY Non-Admin Reason: IV Running Labs 09/02/24 05:38 09/02/24 05:38 Labs: Laboratory Results - last 24 hr 09/01/24 09/01/24 09/02/24 18:09 21:21 05:38 MCV 92.1 90.5 MCH 31.6 31.6 MCHC 34.4 34.9 RDW 12.9 13.0 Plt Count 188 166 MPV 9.4 9.5 Immature Gran % (Auto) 1.0 H 0.6 H Neut % (Auto) 95.1 H 90.7 H Lymph % (Auto) 0.6 L 1.6 L [place] % (Auto) 2.9 6.8 Eos % (Auto) 0.2 0.1 Baso % (Auto) 0.2 0.2 Lymph # (Auto) 0.1 L 0.2 L [place] # (Auto) 0.5 0.9 Eos # (Auto) 0.0 0.0 Baso # (Auto) 0.0 0.0 Abs Immat Gran (auto) 0.17 H 0.07 H Absolute Neuts (auto) 16.4 H 11.4 H Absolute Nucleated RBC 0.000 0.000 Nucleated RBC % (auto) 0.0 0.0 Smear Tech's Comments VERIFIED VERIFIED Anion Gap 14 13 Estim Creat Clear Calc 46.0 50.2 Estimated GFR 58 > 60 Random Glucose 139 H 106 Lactic Acid 1.3 Calcium 9.2 8.6 D Total Bilirubin 1.5 H AST 24 ALT 16 Alkaline Phosphatase 75 Total Protein 7.5 Albumin 4.6 Lipase 22 Influenza Type A (PCR) NEGATIVE Influenza Type B (PCR) NEGATIVE RSV RNA Qual (PCR) NEGATIVE SARS-CoV-2 RNA (RT-PCR) NEGATIVE Assessment and Plan Plan This is a 84-year-old male with pertinent history of multiple PVCs, gastroesophageal reflux disease, mixed hyperlipidemia, BPH who presents to the emergency department for evaluation of chills and cough. Sepsis due to right-sided pneumonia: Resuscitated IV crystalloids. Initiating IV ceftriaxone and azithromycin for cap coverage. Follow blood culture and sputum culture Vomiting/diarrhea: GI panel pending. On antibiotics as above Nose laceration due to fall: ?due to weakness in the setting of above. Orthostatics negative in the ER. Denies syncope, tongue bite, urinary/bowel incontinence, jerking movement of extremities, chest pain or palpitations, dizziness or lightheadedness prior to the fall. 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 Discussed with patient at bedside Admit as inpatient and will require two night minimum hospital stay for IV antibiotics (as above), which is not possible in a lesser acute setting. Quality Stroke Does the patient have a stroke diagnosis?: No VTE Prior VTE?: No VTE Risk Level:: Medical - moderate - high VTE Device Contraindication: Treatment Not Indicated VTE Drug Contraindication: N/A - Med Ordered
[2024-09-02 07:57] LABS: Appearance Urine Clear; Color Urine Yellow; Glucose Urine UA Negative (Negative); Leukocyte Esterase Urine Negative (Negative); Nitrite Urine Negative (Negative); Urine Blood Negative (Negative); Urine Ketones 40 mg/dL (Negative); Urine Protein Trace mg/dL (Neg-Trace)
--- NOTE | 2024-09-02 08:24 | PHA.MEDREC ---
Pharmacy Consult ? Medication Reconciliation Pharmacy has completed the medication reconciliation. Spoke with patient at bedside, he knew all his medications.
[2024-09-02] MEDS: Omeprazole 20 MG CAPSULE.DR PO (08:26)
--- NOTE | 2024-09-02 09:32 | PC.NURSE ---
Pt ambulating independently to/from BR with steady gait; pt denies dizziness at this time; SR per tele; vss; pt tolerating PO intake with no s/s of NVD; pt cont to decline admission to hospital; MD aware and discussing DC home with pt
[2024-09-02 09:58] LABS: Adenovirus F 40/41 Not Detected (Not Detect.); Astrovirus Not Detected (Not Detect.); Campylobacter Not Detected (Not Detect.); Cryptosporidium Not Detected (Not Detect.); Cyclospora cayetanensis Not Detected (Not Detect.); E. coli EAEC Detected (Not Detect.); E. coli EPEC Not Detected (Not Detect.); E. coli ETEC Not Detected (Not Detect.); E. coli STEC Not Detected (Not Detect.); Entamoeba histolytica Not Detected (Not Detect.); Giardia lamblia Not Detected (Not Detect.); Plesiomonas shigelloides Not Detected (Not Detect.); Rotavirus A Not Detected (Not Detect.); Salmonella Not Detected (Not Detect.); Sapovirus Not Detected (Not Detect.); Shigella sp./EIEC Not Detected (Not Detect.); Vibrio Not Detected (Not Detect.); Vibrio Cholerae Not Detected (Not Detect.); Yersinia enterocolitica Not Detected (Not Detect.)
--- NOTE | 2024-09-02 10:18 | P.DS_ITS ---
DS: Providers Provider Date of Service: 09/02/24 Date of admission: 09/01/24 23:25 Date of discharge: 09/02/24 Primary care physician: Chevy Pleitez MD DS: Diagnosis Discharge Diagnosis (1) Community acquired pneumonia: Status: Acute (2) Sepsis: Status: Acute DS: Summary Hospital Course Hospital Course: admission hpi Chief Complaint: Chills and cough This is a 84-year-old male with pertinent history of multiple PVCs, gastroesophageal reflux disease, mixed hyperlipidemia, BPH who presents to the emergency department for evaluation of chills and cough. Patient states he started having symptoms on the day of presentation. His is admitted to [facility] for hypoxia and sepsis due to pneumonia and gastroenteritis. Patient began having similar symptoms 1 day after his was admitted. He is complaining of chills and cough. Also had multiple episodes of nonbloody emesis and nonbloody diarrhea. Patient states he bent down, he felt weak, fell and hit his nose. States he did not pass out. No jerking movement of extremities. No dizziness or lightheadedness prior to the fall. No chest pain or palpitations prior to the fall. Endorses malaise and easy fatigability. No chest pain, palpitations, abdominal pain, changes in urinary or bowel habits. In the emergency department, imaging with right-sided pneumonia and patient was found to be septic with leukocytosis. Given IV crystalloids and empiric IV antibiotics in the ER for cap coverage. Hospital course: Patient presented with nausea, vomiting, diarrhea, cough, and chills. His had been admitted earlier in the day with similar symptoms and was found to have pneumonia. Stool studies were positive for E. coli EAEC, likely foodborne. He is currently asymptomatic, and since he has concurrent community-acquired pneumonia (not aspiration type, as indicated by normal oxygen saturation), he will be discharged with oral azithromycin for 5 days. Of note, he has an abrasion over the bridge of his nose, which he attributes to hitting a table while bending to tie his shoe. He denies falling or passing out and is adamant about not wanting cardiac monitoring, stating he feels fine and is self-directing his discharge. He has a follow-up appointment with his financial brokers next week. Patient has mild Hyperchloremic metabolic acidosos with bicab of 19 d/t normal saline infusion and is expected to normalize. He is instructed to drink plenty of fluid. He has been ambulating independently with no issues. Time Attestation Discharge Coordination Time (in mins): 35 Quality: Safe Use of Opioids Does Pt have an Active Cancer Diagnosis on the Problem List?: No Quality: Stroke Does the patient have a stroke diagnosis?: No Physical Exam Vital Signs: Vital Signs: Last Vital Signs Temp 98.3 F 09/02/24 07:12 Pulse 91 09/02/24 07:12 Resp 18 09/02/24 07:12 BP 147/69 H 09/02/24 07:12 Pulse Ox 98 09/02/24 07:12 O2 Del Method Room Air 09/02/24 07:12 BMI result Body Mass Index 23.7 Const: Other: General: AO X 3, no acute distress Resp: CTA bilateral CVS: S1,S2,RRR GI: +BS, NT, no distention Skin: No rash Neuro: motor grossly intact Psych: appropriate affect DS: Data Data Completed and Pending Labs on day of discharge: Laboratory Results - last 24 hr 09/01/24 09/01/24 09/02/24 18:09 21:21 05:38 WBC 17.3 H 12.5 H RBC 4.93 4.33 L Hgb 15.6 13.7 L Hct 45.4 39.2 L MCV 92.1 90.5 MCH 31.6 31.6 MCHC 34.4 34.9 RDW 12.9 13.0 Plt Count 188 166 MPV 9.4 9.5 Immature Gran % (Auto) 1.0 H 0.6 H Neut % (Auto) 95.1 H 90.7 H Lymph % (Auto) 0.6 L 1.6 L [place] % (Auto) 2.9 6.8 Eos % (Auto) 0.2 0.1 Baso % (Auto) 0.2 0.2 Lymph # (Auto) 0.1 L 0.2 L [place] # (Auto) 0.5 0.9 Eos # (Auto) 0.0 0.0 Baso # (Auto) 0.0 0.0 Abs Immat Gran (auto) 0.17 H 0.07 H Absolute Neuts (auto) 16.4 H 11.4 H Absolute Nucleated RBC 0.000 0.000 Nucleated RBC % (auto) 0.0 0.0 Smear Tech's Comments VERIFIED VERIFIED Sodium 140 139 Potassium 4.2 3.6 Chloride 107 111 H Carbon Dioxide 23 19 L Anion Gap 14 13 BUN 27 H 22 H Creatinine 1.19 1.09 Estim Creat Clear Calc 46.0 50.2 Estimated GFR 58 > 60 Random Glucose 139 H 106 Lactic Acid 1.3 Calcium 9.2 8.6 D Total Bilirubin 1.5 H AST 24 ALT 16 Alkaline Phosphatase 75 Total Protein 7.5 Albumin 4.6 Lipase 22 Urine Color Urine Appearance Urine pH Ur Specific [place] Urine Protein Urine Glucose (UA) Urine Ketones Urine Blood Urine Nitrite Ur Leukocyte Esterase Stl C. cayetanensis PCR Stool Rotavirus A PCR Stl Adenov F PCR Stool Astrovirus (PCR) Stool Campylobacter PCR Stool Cryptosporidium PCR Stl Sh Tox Pr E STEC PCR Stool E coli O157 PCR Stl Enterotoxigenic E PCR Stool EPEC (PCR) Stool EAEC (PCR) Stl E. histolytica PCR Stool Giardia Lamblia PCR Stl P. shigelloides PCR Stool Salmonella PCR Stool Sapovirus (PCR) Stl Shigella/EIEC PCR St Y.enterocolitica PCR Stool Vibrio (PCR) Stl Vibrio cholerae PCR Stl Norovirus GI/GII PCR Influenza Type A (PCR) NEGATIVE Influenza Type B (PCR) NEGATIVE RSV RNA Qual (PCR) NEGATIVE SARS-CoV-2 RNA (RT-PCR) NEGATIVE 09/02/24 07:46 WBC RBC Hgb Hct MCV MCH MCHC RDW Plt Count MPV Immature Gran % (Auto) Neut % (Auto) Lymph % (Auto) [place] % (Auto) Eos % (Auto) Baso % (Auto) Lymph # (Auto) [place] # (Auto) Eos # (Auto) Baso # (Auto) Abs Immat Gran (auto) Absolute Neuts (auto) Absolute Nucleated RBC Nucleated RBC % (auto) Smear Tech's Comments Sodium Potassium Chloride Carbon Dioxide Anion Gap BUN Creatinine Estim Creat Clear Calc Estimated GFR Random Glucose Lactic Acid Calcium Total Bilirubin AST ALT Alkaline Phosphatase Total Protein Albumin Lipase Urine Color Yellow Urine Appearance Clear Urine pH 6.0 Ur Specific [place] 1.020 Urine Protein Trace Urine Glucose (UA) Negative Urine Ketones 40 Urine Blood Negative Urine Nitrite Negative Ur Leukocyte Esterase Negative Stl C. cayetanensis PCR Not Detected Stool Rotavirus A PCR Not Detected Stl Adenov F 40/41 PCR Not Detected Stool Astrovirus (PCR) Not Detected Stool Campylobacter PCR Not Detected Stool Cryptosporidium PCR Not Detected Stl Sh Tox Pr E STEC PCR Not Detected Stool E coli O157 PCR Not applicable Stl Enterotoxigenic E PCR Not Detected Stool EPEC (PCR) Not Detected Stool EAEC (PCR) Detected A Stl E. histolytica PCR Not Detected Stool Giardia [place] PCR Not Detected Stl P. shigelloides PCR Not Detected Stool Salmonella PCR Not Detected Stool Sapovirus (PCR) Not Detected Stl Shigella/EIEC PCR Not Detected St Y.enterocolitica PCR Not Detected Stool Vibrio (PCR) Not Detected Stl Vibrio cholerae PCR Not Detected Stl Norovirus GI/GII PCR See Comment Influenza Type A (PCR) Influenza Type B (PCR) RSV RNA Qual (PCR) SARS-CoV-2 RNA (RT-PCR) Discharge Plan Discharge Anticipated Discharge Date/Time: 09/02/24 10:35 Patient Disposition: Home, Self-Care Discharge Diagnosis: Gastroenteritis, community acquired pneumonia Referrals: Chevy Pleitez MD [Primary Care Provider] - 1 Week Discharge Medications: New azithromycin 500 mg tablet 500 mg PO DAILY 4 Days Qty: 4 0RF Continued simvastatin 20 mg tablet 20 mg PO BEDTIME Qty: 90 3RF finasteride 5 mg tablet 5 mg PO DAILY 90 Days Qty: 90 3RF tamsulosin 0.4 mg capsule 0.8 mg PO DAILY 90 Days Qty: 180 2RF propranolol 60 mg capsule,extended release 24 hr 60 mg PO DAILY omeprazole 20 mg capsule,delayed release(DR/EC) 40 mg PO DAILY (DME) Wrist Brace Misc See Rx Instructions .MEDSUPPLY Qty: 1 0RF Rx Instructions: COMFORT FORM WRIST, rt, M Discharge Orders: Discharge Order (Routine); Ordered 09/02/24 Ordered By: Jesus Merida Diet: Advance to usual diet Activity on Discharge: As tolerated Stand Alone Forms: Patient Portal Discharge page Print Language: [place] Care Plan Goals: recovery from gastroenteritis and pneumonia Health Concerns: see above Plan of Treatment: Take Azithromycin 500 mg daily for a total of 5 days Drink plenty of fluid Assessment: see above
[2024-09-02] MEDS: Finasteride 5 MG TABLET PO (10:56)
[2024-09-02 11:31] LABS: Anion Gap 11 (12-20); Carbon Dioxide 24 mmol/L (22-29); Chloride 110 mmol/L (96-108); Potassium 3.9 mmol/L (3.3-5.1); Sodium 141 mmol/L (135-145)
[2024-09-02 11:45] VITALS: BP 109/43; PULSE 62; RESP 16; TEMP 36.4; O2SAT 100
[2024-09-02 12:54] VITALS: BP 109/43; PULSE 62; RESP 16; TEMP 36.4; O2SAT 100
[2024-09-06 09:17] LABS: Norovirus Stool PCR DETECTED
== END 2024-09-02 20:12 | disposition home or self-care (01) | DRG 871 ==
LOC: HO.ED 20:45 → HO.EDOVER 09-02 00:22 → HO.IMC 09-02 07:44 → HO.EDOVER 09-02 10:43
PROVIDERS: Physician Assistant; Admitting Provider Student in an Organized Health Care Education/Training Program; Emergency Provider Internal Medicine; PCP Internal Medicine; Visit Provider Internal Medicine
DX: A41.9 Sepsis, unspecified organism (principal); J18.9 Pneumonia, unspecified organism; A04.0 Enteropathogenic Escherichia coli infection; E86.0 Dehydration; S01.21XA Laceration without foreign body of nose, initial encounter; W19.XXXA Unspecified fall, initial encounter; K21.9 Gastro-esophageal reflux disease without esophagitis; E78.2 Mixed hyperlipidemia; N40.0 Benign prostatic hyperplasia without lower urinary tract symptoms; I49.3 Ventricular premature depolarization; Z20.822 Contact with and (suspected) exposure to COVID-19; Z79.899 Other long term (current) drug therapy
CPT/HCPCS: 0241U; 36415; 71046; 80048; 80051; 80053; 81003; 83605; 83690; 85025; 87040; 87507; 93005; 99285; J0456; J0696; J1650; J2405

== ENCOUNTER → 2024-09-01 20:30 | Outpatient (BNV) | payer MEDICARE, SELFPAY | PROVIDERS: Emergency Provider Internal Medicine; PCP Internal Medicine; Visit Provider Radiology Diagnostic Radiology | DX: J18.9 Pneumonia, unspecified organism (principal) | CPT/HCPCS: 71046 ==

== ENCOUNTER 2024-09-01 23:25 | Outpatient (BNV) | payer MEDICARE, SELFPAY | END 2024-09-02 07:27 | PROVIDERS: Admitting Provider Student in an Organized Health Care Education/Training Program; Emergency Provider Internal Medicine; PCP Internal Medicine; Visit Provider Internal Medicine Cardiovascular Disease | DX: R94.31 Abnormal electrocardiogram [ECG] [EKG] (principal) | CPT/HCPCS: 93010 ==

== ENCOUNTER → 2024-09-01 23:25 | Outpatient (BNV) | payer MEDICARE, SELFPAY | PROVIDERS: Admitting Provider Student in an Organized Health Care Education/Training Program; Emergency Provider Internal Medicine; PCP Internal Medicine; Visit Provider Student in an Organized Health Care Education/Training Program | DX: A41.9 Sepsis, unspecified organism (principal); J18.9 Pneumonia, unspecified organism | CPT/HCPCS: 99223 ==

== ENCOUNTER 2024-09-06 14:54 | Outpatient (AMB) | payer MEDICARE, SELFPAY ==
--- NOTE | 2024-09-06 15:15 | A.OFFPC_ITS ---
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 Required: No Accompanied by: Self / Same As Patient Allergies No Known Allergies Allergy (Mild, Verified 09/06/24 22:18) N/A Medication List - Last Reconciled 09/06/24 by ADRIANNA Medina arm brace (Wrist Brace) COMFORT FORM WRIST, rt, M azithromycin 500 mg PO DAILY 4 days finasteride 5 mg PO DAILY 90 days omeprazole 40 mg PO DAILY propranolol ER 60 mg PO DAILY simvastatin 20 mg PO BEDTIME tamsulosin 0.8 mg (2 x 0.4 mg) PO DAILY 90 days Tobacco use date assessed: 09/06/24 Fall risk assessment: No Falls in past year Last assessed Fall Risk: 09/06/24 Dental Screening Dental Screen Date: 09/06/24 Did you have a dental visit in the last 12 months?: Yes Did you have a dental problem in the last 6 months where you did not have access to dental care?: No Was dental information given to patient?: Patient has dentist HPI [facility] 09/02 pneumonia HPI Details The patient is 84-year-old male with a past medical history of pure hypercholesteremia, multiple PVCs, status post pacemaker inserted in the 1969, GERD, BPH. He is a patient of Dr. Pleitez, was last seen on 04/29/24 for his annual evaluation Patient is presenting today for a post hospital follow-up The patient was discharged from the hospital on 09/02/2024 with a diagnosis of community acquired pneumonia Per hospital note: Patient presented with nausea, vomiting, diarrhea, cough, and chills. His had been admitted earlier in the day with similar symptoms and was found to have pneumonia. Stool studies were positive for E. coli EAEC, likely foodborne. He is currently asymptomatic, and since he has concurrent community-acquired pneumonia (not aspiration type, as indicated by normal oxygen saturation), he will be discharged with oral azithromycin for 5 days. Of note, he has an abrasion over the bridge of his nose, which he attributes to hitting a table while bending to tie his shoe. He denies falling or passing out and is adamant about not wanting cardiac monitoring, stating he feels fine and is self- directing his discharge. He has a follow-up appointment with his plasma processor next week. Patient has mild Hyperchloremic metabolic acidosos with bicab of 19 d/t normal saline infusion and is expected to normalize. He is instructed to drink plenty of fluid. He has been ambulating independently with no issues. X-ray done on hospital: IMPRESSION: 1. Bronchial wall thickening, which can be seen with asthma, reactive airways process or viral illness. 2. Superimposed patchy right lower lobe infiltrates The patient would make sure hims lab results return back to baseline: SDM: will recheck cbc and cmp in 1 month TCM TCM Information Date of Discharge 09/03/24 Discharged From [facility] Interactive Contact Date (Reference documentation from this date) 09/03/24 [facility] Medical History Multiple premature ventricular complexes GERD (gastroesophageal reflux disease) Pure hypercholesterolemia Groin pain Obstructive and reflux uropathy Wrist tendonitis Cardiac pacemaker Surgical History History of colonoscopy History of surgery Trigger finger History of tonsillectomy H/O arthroscopy of right knee History of appendectomy Family History Father Cancer Mother Cancer Social History Housing: House Alcohol intake: current Alcohol intake frequency: holidays/special occasions only Patient Tobacco Use Status: Never used Tobacco e-Cigarette/Vaping Use: Never Used Second Hand Smoke Exposure: No service: Yes 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 1. Little interest or pleasure in doing things: not at all 2. Feeling down, depressed, or hopeless: not at all 3. Trouble falling or staying asleep, or sleeping too much: more than half the days 4. Feeling tired or having little energy: not at all 5. Poor appetite or overeating: not at all 6. Feeling bad about yourself - or that you are a failure or have let yourself or your family down: not at all 7. Trouble concentrating on things, such as reading the newspaper or watching television: not at all 8. Moving or speaking so slowly that other people could have noticed. Or the opposite - being so fidgety or restless that you have been moving around a lot more than usual: not at all 9. Thoughts that you would be better off or of hurting yourself in some way: not at all Total score: 2 Depression Screening Interpretation: Negative Depression Screening Done: Yes 51906 - PHQ-9 Billing: Yes Source: Developed by Drs. Grzegorz Cardenas, Nikki Casas, Nam Kee and colleagues, with an educational yue from [employer]. Thrive Questionnaire Date Thrive assessed: 09/06/24 I am a: Patient What is your living situation today?: I have a steady place to live Within the past 12 months, did the food you bought not last and you didn't have the money to get more?: Never true Within the past 12 months, did you worry whether your food would run out before you got money to buy more?: Never true Do you have trouble paying for medicines?: No Do you have trouble getting transportation to medical appointments?: No Do you have trouble paying your heating and electricity bill?: No Do you have trouble taking care of your child, family member or friend?: No Do you have trouble with day-to-day activities such as bathing, preparing meals, shopping, managing finances, etc.?: No Are you currently unemployed and looking for a job?: No Are you interested in more education?: No Please select the resources that you would like help with: None Currently or been in a relationship where the following occur: No concerns reported THRIVE Score: 0 AUDIT C Alcohol Use Questionnaire (AUDIT-C) 1. How often do you have a drink containing alcohol?: Never 3. How often do you have six or more drinks on one occasion?: Never Total Score: 0 Score Reviewed/Action Taken: Yes ROSA-7 AMB Questionnaire ROSA-7 Date ROSA - 7 assessed: 09/06/24 Feeling nervous, anxious, or on edge: 0 = Not at all Not being able to stop or control worryin = Not at all Worrying too much about different things: 0 = Not at all Trouble relaxin = Not at all Being so restless that it is hard to sit still: 0 = Not at all Becoming easily annoyed or irritable: 0 = Not at all Feeling afraid as if something awful might happen: 0 = Not at all Total ROSA-7 score (0-4 normal; 5-9 mild; 10-14 moderate; 15-21 severe): 0 Source: Developed by Drs. Grzegorz Cardenas, Nikki Casas, Nam Kee and colleagues, with an educational yue from [employer]. ROSA-7 Assessment Billing ROSA-7 Assessment Tool: ROSA-7 Assessment 65422 Review of Systems Const Details: Const Denies chills, Denies fatigue, Denies fever(s), Denies headache(s) and Denies weakness ENT Denies dizziness and Denies headache(s) Card Denies chest pain, Denies lightheadedness, Denies dyspnea and Denies other (Palpitations) Resp Denies cough, Denies dyspnea, Denies wheezing and Denies other ( shortness of breath) GI Denies abdominal pain, Denies melena, Denies hematochezia, Denies change in bowel habits, Denies dyspepsia and Denies nausea Denies hematuria and Denies dysuria Musc Denies abnormal gait, Denies myalgias, Denies arthralgias, Denies numbness and Denies tingling Skin/Breast Denies rash, Denies unusual bruising and Denies wounds Neuro Denies abnormal gait, Denies dizziness, Denies headache(s), Denies memory loss, Denies numbness, Denies Sensory deficit (Neuro), Denies tingling and Denies weakness Psych Denies anxiety, Denies depression, Denies memory loss Endo Denies cold intolerance, Denies fatigue, Denies heat intolerance, Denies polydipsia and Denies polyuria Aller/Immun Denies wheezing Physical exam (Primary Care) Vital Signs: Last Vital Signs Pulse 61 09/06/24 15:17 BP 132/68 09/06/24 15:17 Pulse Ox 98 09/06/24 15:17 Oxygen Delivery Method Room Air 09/06/24 15:17 BMI result Body Mass Index 24.1 Tobacco/Smoking Status: Tobacco use Status Tobacco use date assessed 09/06/24 09/06/24 15:20 Patient Tobacco Use Status Never used Tobacco 09/06/24 15:20 e-Cigarette/Vaping Use Never Used 09/06/24 15:20 PHQ-9: PHQ-9 Score PHQ-9: Total score 2 09/06/24 22:19 Depression Screening Interpretation: Negative Thrive Assessment: Date of Thrive Assessment Date Thrive assessed 09/06/24 09/06/24 15:20 Currently or been in a relationship where the following occur: No concerns reported Const Other: General: no acute distress and well developed Nutritional Appearance: well nourished Orientation/consciousness: patient oriented x3 HENMT Head: Yes normocephalic and Yes atraumatic, bridge of nose abrasion scabbed over and healing, black and blue discoloration to the left side of face close to his nose. Eyes General: appearance normal, both eyes and all related structures Pupils: Equal, round and reactive pupils present EOM: EOMs intact bilaterally Resp Effort & Inspection: normal respiratory effort Auscultation: clear to auscultation bilaterally Cardio Rate: regular rate Rhythm: regular rhythm Heart sounds: S1 normal heart sound present, S2 normal heart sound present, no gallops, no murmurs and no rubs (PACEMAKER) GI Palpation (GI): Soft to palpation, nontender, Auscultation: normal bowel sounds General: Yes no CVA tenderness Back/Spine/Pelvis Back: no CVA tenderness Cervical Spine: cervical ROM normal and No Cervical spine tenderness tenderness and No lumbar spinal tenderness Extrem General: Yes normal to inspection, No edema and No calf tenderness Skin General: warm and dry. Normal skin color. Normal skin turgor Lesions: no lesions Rashes: no rashes Trauma: no lacerations or abrasions Wounds: no wounds Nails: normal Neuro General: patient oriented x3, gait normal and no focal neuro deficit Cranial nerves: Yes Equal, round and reactive pupils present Cognition (Neuro): normal cognition Gait exam (Neuro): Normal gait present Sensory Exam: No Sensory deficit (Neuro) Psych Appearance: grossly normal Affect: normal affect Attitude: cooperative Thought process: Normal thought process present Results Reviewed Results Reviewed: Laboratory Tests 09/01/24 09/02/24 09/02/24 18:09 05:38 07:46 WBC 12.5 H RBC 4.33 L Hgb 13.7 L Hct 39.2 L Sodium Potassium Chloride BUN 22 H Creatinine 1.09 Estimated GFR > 60 Random Glucose 139 H 106 AST 24 ALT 16 Urine Color Yellow Urine Appearance Clear Urine pH 6.0 Ur Specific [place] 1.020 Urine Protein Trace Urine Glucose (UA) Negative Urine Blood Negative Urine Nitrite Negative Ur Leukocyte Esterase Negative 09/02/24 11:16 WBC RBC Hgb Hct Sodium 141 Potassium 3.9 Chloride 110 H BUN Creatinine Estimated GFR Random Glucose AST ALT Urine Color Urine Appearance Urine pH Ur Specific [place] Urine Protein Urine Glucose (UA) Urine Blood Urine Nitrite Ur Leukocyte Esterase Coding Level of Care Code TCM Mod MDM <= 7 Days Diagnoses Community acquired pneumonia of right lower lobe of lung J18.9 Laterality: right Lung location: lower lobe of lung Bandemia D72.825 Leukocytosis type: bandemia Hyperchloremia E87.8 Gastroenteritis K52.9 Abrasion of nose, sequela S00.31XS Encounter type: sequela Additional Codes ROSA-7 Assessment Billing - ROSA-7 Assessment Tool: ROSA-7 Assessment 26401 ([id number]) PHQ-9 - 04123 - PHQ-9 Billing: Yes ([id number]) Assessment & Plan Assessment & Plan (1) Community acquired pneumonia: Code(s): J18.9 - Pneumonia, unspecified organism Category: Medical Qualifiers: Laterality: right Lung location: lower lobe of lung Qualified Code(s): J18.9 - Pneumonia, unspecified organism Plan: Continue azithromycin as ordered Increase fluid/hydration (2) Elevated WBC count: Code(s): D72.829 - Elevated white blood cell count, unspecified Category: Medical Qualifiers: Leukocytosis type: bandemia Qualified Code(s): D72.825 - Bandemia Plan: This is likely due his recent pneumonia and sepsis/SIRS Will recheck lab in 1 month (3) Hyperchloremia: Code(s): E87.8 - Other disorders of electrolyte and fluid balance, not elsewhere classified Category: Medical Plan: Increase fluids intake Follow-up labs in 1 month (4) Gastroenteritis: Code(s): K52.9 - Noninfective gastroenteritis and colitis, unspecified Category: Medical Plan: Resolved (5) Nose abrasion: Code(s): S00.31XA - Abrasion of nose, initial encounter Category: Medical Qualifiers: Encounter type: sequela Qualified Code(s): S00.31XS - Abrasion of nose, sequela Plan: nose bridge abrasion is scabbed over and healing Monitor for sign of infection Contact office for any sign of infection noted Plan I personally spent 31 minutes reviewing the chart, caring for the patient and documenting after the visit. To return as scheduled in May 2025 for his AWV Orders: Orders Complete Blood Count Auto Diff 1 Month D72.829 - Elevated white blood cell count, unspecified, E86.0 - Dehydration, E87.8 - Other disorders of electrolyte and fluid balance, not elsewhere classified, J18.9 - Pneumonia, unspecified organism, K52.9 - Noninfective gastroenteritis and colitis, unspecified, R73.9 - Hyperglycemia, unspecified Comprehensive [place]. Panel Fast 1 Month D72.829 - Elevated white blood cell count, unspecified, E86.0 - Dehydration, E87.8 - Other disorders of electrolyte and fluid balance, not elsewhere classified, J18.9 - Pneumonia, unspecified organism, K52.9 - Noninfective gastroenteritis and colitis, unspecified, R73.9 - Hyperglycemia, unspecified
[2024-09-06 15:17] VITALS: BP 132/68; PULSE 61; O2SAT 98; BMI 24.1
== END 2024-09-06 15:44 | disposition home or self-care (01) ==
PROVIDERS: PCP Internal Medicine
DX: J18.9 Pneumonia, unspecified organism (principal); D72.825 Bandemia; E87.8 Other disorders of electrolyte and fluid balance, not elsewhere classified; K52.9 Noninfective gastroenteritis and colitis, unspecified; S00.3 Superficial injury of nose

== ENCOUNTER → 2024-09-06 14:54 | Outpatient (BNVA) | payer MEDICARE, SELFPAY | PROVIDERS: PCP Internal Medicine | DX: E78.00 Pure hypercholesterolemia, unspecified (principal); K21.9 Gastro-esophageal reflux disease without esophagitis; N40.0 Benign prostatic hyperplasia without lower urinary tract symptoms; J18.9 Pneumonia, unspecified organism; D72.825 Bandemia; E87.8 Other disorders of electrolyte and fluid balance, not elsewhere classified; K52.9 Noninfective gastroenteritis and colitis, unspecified; S00.3 Superficial injury of nose; X58.XXXS Exposure to other specified factors, sequela; Z95.0 Presence of cardiac pacemaker | CPT/HCPCS: 96127; 99495 ==

== ENCOUNTER 2025-01-13 08:22 | Outpatient (REF) | payer MEDICARE, SELFPAY ==
--- OUTSIDE RECORDS SUMMARY | 2025-01-13 08:39 | XMS_ITS ---
Author Organization [facility] Address [address] [place] [address] Care Team Providers Care Practice Performance Manager Name Role Phone Maik AZUL, Kamiah Primary Care Provider Unabyron LuevanoakerCarlie Unavailable [phone] Sandoval Palacio Unavailable [phone] Allergies No Known Allergies REASON FOR VISIT Painful nail(s) aggravated by shoes causing difficulty standing/walking Medications Medication SIG (Take, Route, Frequency, Duration) Notes Start Date End Date Status Simvastatin 20 MG 1 tablet Orally Once a day Active Tamsulosin HCl 0.4 MG 1 capsule Orally O nce a day Active Physical Therapy . . . 2-3x/week for 3- 4 weeks 01/06/2019 Not-Taking ICaps Not-Taking PreserVision/Lutein Active Voltaren 1 % as directed Externally Active Propranolol HCl 60 MG 1 tablet Orally Tw ice a day for 30 day(s) Active Omeprazole 20 MG 1 capsule 30 minutes before morning meal Orally Once a day for 30 day(s) Active Finasteride Active Social History Tobacco Use: Social History Observation Description Date Details (start date - stop date) Never Smoker NA - NA Tobacco use other than smoking: Question Answer Notes Are you an other tobacco user? No Tobacco Control (Standard) Question Answer Notes Tobacco use: Nonsmoker Additional Findings: Tobacco non-user Current no nsmoker AUDIT-C (Standard) Question Answer Notes Did you have a drink containing alcohol in the p ast year? No Points 0 Interpretation Negative Problems Problem Type SNOMED Code ICD Code Onset Dates Problem Status W/U Status Risk Notes Problem Onychomycosis (905777320) Onychomycosis (B35.1) Active confirmed Vital Signs Height 5 ft 10 in in 10/13/2024 Weight 165 lbs 10/13/2024 BMI 23.67 kg/m2 10/13/2024 Blood pressure systolic 120 mm Hg 10/13/19 25 Blood pressure diastolic 65 mm Hg 025 Procedures Procedure Date Ordered Date Performed Result Body Sit e [id number] NAIL, 6 OR MORE 10/13/2024 N/A Encounters Encounter Location Date Provider Diagnosis [facility] [address] [address] 10/13/2024 Sandoval Pia Pain in right toe(s) M79.674 ; Onychomycosis B35.1 and Pain in left toe(s) M79.675 Assessments Encounter Date Diagnosis (ICD Code) Assessment Notes Treatment Notes Treatment Clinical Notes Section Notes 10/13/2024 Pain in right toe(s) (ICD-10 - M79.674) 10/13/2024 Onychomycosis (ICD-10 - B35.1) 10/13/2024 Pain in left toe(s) (ICD-10 - M79.675) Plan Of Treatment Pending Test Test Name Order Date [id number] NAIL, 6 OR MORE 10/13/2024 Next Appt Details Follow Up: prn, Reason: Provider Name:Carlie noguera, 01/13/2025 09:30:00 AM, [address] [place] [address], [id number], Procedure Notes * Category Sub-Category Detail Notes Debride Nail 6-10 Nail debridement Due to the cl inical pathology outlined in the exam findings, performance of this nail treatment is medically necessary as its management by an unskilled/untrained nonprofessional would put this patients foot and overall health at risk. Therefore, debridement to affected nail(s), as described in exam ( TA, T1, T2, T3, T4, T5, T6, T7, T8, T9 ), was performed exclusively by the physician of record to reduce/remove overall nail length, girth, thickness, subungual debris, and necrotic tissue, by manual and/or electrical means through the use of a nail nipper and/or dremel-type grinder and honer operator automatic, to a more viable healthy nail plate or bed tissue 6-10 nails in total. Silver nitrate was used for any petechial bleeding as necessary. Definitive antifungal treatment options, both pharmaceutical and surgical, have been reviewed and discussed with the patient. The patient solely prefers the use of intermittent/as needed professional debridement services for their nail condition and understands the need for additional periodic treatments to maintain effectiveness in symptomatic relief - 52809 Progress Notes * Candido CASTAÑEDA SDOB: [birth year] (84 yo M)Acc No.[id number]:10/13/2024 Progress Note Patient:?Candido CASTAÑEDA S Provider:?Sandoval Palacio DPM :1940???Age:84 Y???Sex:Male Tl e:10/13/2024 Address:[address] [place] [address] [id number] Pcp:Chevy Pleitez MD Subjective: * Chief Complaints: * ???Painful nail(s) aggravate d by shoes causing difficulty standing/walking * HPI: ???Painful Nails:?Pt States Last PCP Visit:?Date:?08/19/2024 * ROS:?General/Constitutional:?Nausea?denies.?Vomiting?denies.?Hunger Thirst?denies.?Loss appetite?denies.?Chills?denies.?Fatigue?denies.?Fever?denies.?Night Sweats?denies.?Unexplained weight loss?denies.?Unexplained weight gain?denies.?HEENTM:?Dentures?denies.?Dizziness?denies.?Glasses/contacts?admits.?Retinopathy?de nies.?Blurred/double vision?denies.?TMJ?denies.?Discharge/drainage?denies.?Implants?denies.?Sore throat?denies.?Dental implants?denies.?Hard of hearing ?denies.?Difficulty chewing/swallowing/speaking?denies.?Nose bleeds?denies.?Sore mouth?denies.?Respiratory:?On Oxygen?denies.?Pneumonia/pleurisy?denies.?Bronchitis?denies.?Emphysema?denies.?C oughing?denies.?Cough blood?denies.?Shortness of breath?denies.?Wheezing?denies.?Cardiovascular:?Pacemaker?admits.?MVP?denies.?WPW?denies.?CHF?denies.?Heart attack?denies.?Septal defect?denies.?Rapid beat?denies.?Chest pain ?denies.?Atrial Fib.?denies.?Murmur/Palpitations?denies.?Gastrointestinal:?Hemorrhoids?denies.?Stomach/Abdominal pain?denies.?Dark blood stool?denies.?Irritable bowel ?denies.?Constipation?denies.?Diarrhea?denies.?Hematology:?Swelling?denies.?Clots?denies.?Varicose Veins?denies.?Bruising?denies.?Bleeding problem?denies.?Genitourinary:?Blood urine?denies.?Frequent/Painfu/urination/bladder control?denies.?Kidney stones?denies.?Infection (UTI)?denies.?Nephropathy?denies.?sex trans dis (STD)?denies.?Prostate?denies.?Musculoskeletal:?Hammertoes?denies.?Bunions?denies.?Back Pain?denies.?Muscle Cramps/ Resting?denies.?Muscle cramps / walking?denies.?Generalized aches and pains?denies.?Weakness?denies.?Integ.:?Garrett?denies.?Scars?admits.?Corns/calluses?denies.?Ingrown nails?admits.?Painful nails?admits.?Open Sores?denies.?Rashes?denies.?Neurologic:?Difficulty sleeping?denies.?Brain disorder?denies.?Numbness?denies.?Balance trouble?denies.?Confusion?denies.?Fainting/blackouts?denies.?Tingling?denies.?Tr emors?denies.? * Medical History:? * Surgical History:?Orchiopexy thyroid nodule removal sappendectomy sright knee arthroscopy cardiac pacemeker 1974tonsillectomy trigger finger release colonoscopy endoscopy orchcodexy 1950 * Hospitalization/Major Diagno stic Procedure:?Denies Past Hospitalization * Family History:?Mother: dece ased, Breast Cancer, diagnosed with Other malignant neoplasm of unspecified site.?Father: , diagnosed with Other malignant neoplasm of unspecified site.?Paternal Grand Mother: Ovarian cancer.?Paternal uncle: Colon Cancer.? * Social History:?Tobacco Use:?Tobacco use other than smoking?Are you an other tobacco user??No ?Tobacco Control (Standard)?Tobacco use:?Nonsmoker ?Additional Findings: Tobacco non-user?Current nonsmoker ???Drugs/Alcohol:?Drugs?Have you used drugs other than those for medical reasons in the past 12 months??No ???Miscellaneous:?Caffeine: no, none. ?Children: yes, 2. ?Exercise: yes, walking, tobacco sample puller, reading. ?Marital status: . 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 ???Drug/Alcohol:?AUDIT-C (Standard)?Did you have a drink containing alcohol in the past year??No ?Points?0 ?Interpretation?Negative * Medications:?TakingVoltaren 1 % Gel as directed Externally Propranolol HCl 60 MG Tablet 1 tablet Orally Twice a day Finasteride Omeprazole 20 MG Capsule Delayed Release 1 capsule 30 minutes before morning meal Orally Once a day PreserVision/Lutein Simvastatin 20 MG Tablet 1 tablet Orally Once a day Tamsulosin HCl 0.4 MG Capsule 1 capsule Orally Once a day Taking Voltaren 1 % Gel as directed Externally Taking Propranolol HCl 60 MG Tablet 1 tablet Orally Twice a day Taking Finasteride Taking Omeprazole 20 MG Capsule Delayed Release 1 capsule 30 minutes before morning meal Orally Once a day Taking PreserVision/Lutein Taking Simvastatin 20 MG Tablet 1 tablet Orally Once a day Taking Tamsulosin HCl 0.4 MG Capsule 1 capsule Orally Once a day Not-Taking/PRNPhysical Therapy . . . . 2-3x/week ICaps Medication List reviewed and reconciled with the patientNot-Taking/PRN Physical Therapy . . . . 2-3x/week Not-Taking/PRN ICaps Medication List reviewed and reconciled with the patient * Allergies:?N.K.D.A.yes[Aller gies Verified] Objective: * Vitals:?Ht: 5 ft 10 in, Wt:1 65, BMI: 23.67, Shoe size:8.5, BP:120/65mm Hg, Wt- k.84 kg. * Examination: ???Nails: ?NAILS are:?Elongated, overgrown, dystrophic, lytic, greater than 3mm thick, discolored and friable with crumbly malodorous subungual debris, with pain on palpation, TA, T1, T2, T3, T4, T5, T6, T7, T8, T9.? Assessment: * Assessment: 1.?Pain in right toe(s) - M7 9.674???2.?Onychomycosis - B35.1 (Primary)???3.?Pain in left toe(s) - M79.675??? Plan: * Treatment: * Procedures:?Debride Nail 6-10:?Nail debridement?Due to the clinical pathology outlined in the exam findings, performance of this nail treatment is medically necessary as its management by an unskilled/untrained nonprofessional would put this patients foot and overall health at risk. Therefore, debridement to affected nail(s), as described in exam (?TA, T1, T2, T3, T4, T5, T6, T7, T8, T9?), was performed exclusively by the physician of record to reduce/remove overall nail length, girth, thickness, subungual debris, and necrotic tissue, by manual and/or electrical means through the use of a nail nipper and/or dremel-type grinder and honer operator automatic, to a more viable healthy nail plate or bed tissue 6- 10 nails in total. Silver nitrate was used for any petechial bleeding as necessary. Definitive antifungal treatment options, both pharmaceutical and surgical, have been reviewed and discussed with the patient. The patient solely prefers the use of intermittent/as needed professional debridement services for their nail condition and understands the need for additional periodic treatments to maintain effectiveness in symptomatic relief - 58648.? * Procedure Codes:?73923 DEBRI DE NAIL, 6 OR MORE * Follow Up:?prn * Images: * Sign off status: Completed true * Provider:?Sandoval Palacio DPM Date:?2024 Generated for Lowell prabhakar/Gage/Lucianoitting on:?01/13/2025 08:39 AM EDT History and Physical Notes * HPI (History of Present Illness) Category Sub-Category Detail Notes Category Not es Painful Nails Pt States Last PCP Visit: Date:: 08/19/2024 Examination Category Sub-Category Detail Notes Category Not es Nails NAILS are: Elongated, overg rown, dystrophic, lytic, greater than 3mm thick, discolored and friable with crumbly malodorous subungual debris, with pain on palpation, TA, T1, T2, T3, T4, T5, T6, T7, T8, T9
--- OUTSIDE RECORDS SUMMARY | 2025-01-13 08:40 | XMS_ITS | Clinical Summary ---
Author Organization [address] [place] [address] Address [address] [place] [address] Phone Care Team Providers Care Information Coordinator Name Role Phone Chevy Pleitez MD Primary Care Provider [phone] Allergies No known active allergies Medications finasteride (PROSCAR) 5 mg tablet Take 1 Tablet by mouth daily. 02/25/2024 Active omeprazole (PriLOSEC) [address] capsule Take 1 Capsule by mouth daily. 12/19/2023 Active simvastatin (ZOCOR) 20 mg tablet Take 1 Tablet by mouth at bedtime. 12/14/2023 Active tamsulosin (FLOMAX) 0.4 mg 24 hr capsule Take 0.04 mg by mouth daily. 02/03/2024 Active propranolol LA (INDERAL LA) 60 mg 24 hr capsule Take 1 capsule (60 mg total) by mouth 1 (one) time each day. 90 capsule 2 12/06/2024 Active Active Problems Problem Noted Date Diagnosed Date Diagnosis unknown 07/20/2024 Overview (07/20/2024): Nonallopathic lesion of cervical region, not elsewhere classified SSS (sick sinus syndrome) (CMS/HCC V24, CMS/HCC V28) 03/08/2024 Assessment & Plan (08/31/2024 9:59 AM EST): Yunior is doing quite well with a normally functioning pacemaker that provides backup pacing that occurs very rarely. The system is working well. He is being followed by remote monitoring. No changes were made to the programming today. Continue remote monitoring. SOB (shortness of breath) 03/08/2024 Palpitations 03/08/2024 Multiple premature ventricular complexes 024 Overview (07/20/2024): Last Assessment & Plan: This 83-year-old gentleman with sinus node dysfunction and a permanent pacemaker is now having frequent premature ventricular complexes. These are symptomatic although it sounds like he is more concerned with the frequency and potential implications. Based on the normal baseline ECG, the outflow tract morphology and the lack of although symptoms I highly confident that these are benign PVCs. I will get an echocardiogram to to assure there is no LV dysfunction that might argue otherwise. I am going to start him on propranolol extended release 60 mg daily given the frequency of the PVCs. He is not symptomatic enough for me to want to try a medication such as flecainide which would likely be more effective at suppressing the PVC but also may have more side effects. I will have him come back in a month or so to recheck his ECG, assess symptoms and review a repeat Holter monitor. Assessment & Plan (08/31/2024 9:59 AM EST): Minimal PVC burden. No symptoms. Device shows no prolonged episodes of VT. Echocardiogram was quite reassuring with normal left ventricular function. Continue propranolol. Sprain of neck 01/09/2010 Encounters Date Type Department Care Team Description 12/06/2024 Telephone [facility] [address] [facility] [address] [place] [address] Randal Cortes MD Med Refill 10/21/2024 4:00 PM EST Ancillary Procedure [facility] - [address] [facility] [address] [place] [address] Encounter for adjustment or management of cardiac device from Last 3 Months Social History Tobacco Use Types Packs/Day Years Used Date Smoking Tobacco: Never Smokeless Tobacco: Never Alcohol Use Standard Drinks/Week Comments Yes 0 (1 standard drink = 0.6 oz pur e alcohol) Sex and Gender Information Value Date Recorded Sex Assigned at Not on file Legal Sex Male 7:00 PM EST Gender Identity Not on file Sexual Orientation Not on file Obstetrics History Last Filed Vital Signs Vital Sign Reading Time Taken Comments Blood Pressure 122/72 08/31/2024 9:27 AM EST Pulse 58 08/31/2024 9:27 AM EST Temperature - - Respiratory Rate - - Oxygen Saturation 99% 08/31/2024 9:27 AM EST Inhaled Oxygen Concentration - - Weight 78 kg (172 lb) 08/31/2024 9:27 AM EST Height 177.8 cm (5' 10 ) 08/31/2024 9:27 AM EST Body Mass Index 24.68 08/31/2024 9:27 AM EST Plan of Treatment Upcoming Encounters Date Type Department Care Team (Late st Contact Info) Description 04/20/2025 9:30 AM EDT Ancillary Procedure [facility] [address] [facility] [address] [place] [address] 08/09/2025 1:30 PM EST Office Visit [facility] - [facility] [address] [facility] [address] [place] [address] Randal Cortes MD [address] [place] [address] [place] [address] Health Maintenance Due Date Last Done Comments RSV Immunization Adult Patients (1 - 1-dose 75+ series) 2013 Cholesterol Screening (Lipid Panel) 08/10/2022 Depression Screening 08/10/2022 Falls Risk Assessment 08/10/2022 Medicare Annual Wellness Visit 08/10/2022 Social Influencers of Health Screening 08/10/2022 Pneumococcal Vaccine: 50+ Years (2 of 2 - PPSV23) 09/04/2022 09/04/2021 COVID-19 Vaccine ( season) 2024 05/01/2024, 05/24/2023, 12/26/2022, Additional history exists DTaP,Tdap,and Td Vaccines (2 - Td or Tdap) 03/30/2028 03/30/2018 Zoster Vaccines Completed 08/21/2018, 05/15/2018 Influenza Vaccine Completed 05/19/2024, , 05/22/2022, Additional history exists HIB Vaccines Aged Out No longer eligi ble based on patient's age to complete this topic HPV Vaccines Aged Out No longer eligi ble based on patient's age to complete this topic Hepatitis A Vaccines Aged Out No long er eligible based on patient's age to complete this topic Hepatitis B Vaccines Aged Out No long er eligible based on patient's age to complete this topic IPV Vaccines Aged Out No longer eligi ble based on patient's age to complete this topic MMR Vaccines Aged Out No longer eligi ble based on patient's age to complete this topic Meningococcal ACWY Vaccine Aged Out N o longer eligible based on patient's age to complete this topic Meningococcal B Vaccine Aged Out No l onger eligible based on patient's age to complete this topic RSV Immunization Patients Under 20 months Aged Out No longer eligible based on patient's age to complete this topic Varicella Vaccines Aged Out No longer eligible based on patient's age to complete this topic Procedures Procedure Name Priority Date/Time Associated Diagnosis Comments CARDIAC DEVICE CHECK- IN CLINIC- [facility]J Routine 10/21/2024 3:58 PM EST Encounter for adjustment or management of cardiac device from Last 3 Months Results * CARDIAC DEVICE CHECK- IN CLINIC- [facility]J (10/21/2024 3:58 PM EST) Date Time Interrogation Session [id number] CV DEVICE CHECK Implantable Pulse Generator Paper Cutting Machine Operator BSX CV DEVICE CHECK Implantable Pulse Generator Type IPG CV DEVICE CHECK Implantable Pulse Generator Model L100 CV DEVICE CHECK Implantable Pulse Generator Serial Number [id number] CV DEVICE CHECK Implantable Pulse Generator Implant Date [id number] CV DEVICE CHECK Battery Status Middle of Service CV DEVICE CHECK Lead Channel Setting Sensing Sensitivity 0.75 CV DEVICE CHECK Lead Channel Sensing Intrinsic Amplitude 12.500 CV DEVICE CHECK Lead Channel Setting Sensing Sensitivity 2.50 CV DEVICE CHECK Lead Channel Impedance Value 443 CV DEVICE CHECK Lead Channel Pacing Threshold Amplitude 1.700 CV DEVICE CHECK Lead Channel Pacing Threshold Pulse Width 0.4 CV DEVICE CHECK Lead Channel RV Pacing Threshold Date 2024-10-21 CV DEVICE CHECK Lead Channel Setting Pacing Amplitude 3.000 CV DEVICE CHECK Lead Channel Setting Pacing Pulse Width 0.4 CV DEVICE CHECK Alexander Setting Mode (NBG Code) VVI CV DEVICE CHECK Alexander Setting Lower Rate Limit 50 CV DEVICE CHECK Zone Setting Type Category VF CV DEVICE CHECK Zone Setting Status On CV DEVICE CHECK Zone ID 1 CV DEVICE CHECK Zone Setting Type Category VT CV DEVICE CHECK Rate 160 CV DEVICE CHECK Zone Setting Status On CV DEVICE CHECK Zone ID 2 CV DEVICE CHECK Zone Setting Type Category VT1 CV DEVICE CHECK Zone Setting Status On CV DEVICE CHECK Zone ID 3 CV DEVICE CHECK Date of Service 2025-04-13 CV DEVICE CHECK Anatomical Region Laterality Modality Device Interroga tion 10/21/2024 Impressions 11/01/2024 7:32 AM EST Normal In-Office: No Events * Normal Device Function * Alerts or events: None * Battery: MOS, 4 years * Sensing, impedance and thresholds reviewed and tested * Presenting Rhythm: VS 50's * Heart Rate Histograms reviewed * Pacing and Detection Parameters were evaluated Narrative Procedure Note Randal Cortes MD - 11/01/2024 IMPRESSION: Normal In-Office: No Events * Normal Device Function * Alerts or events: None * Battery: MOS, 4 years * Sensing, impedance and thresholds reviewed and tested * Presenting Rhythm: VS 50's * Heart Rate Histograms reviewed * Pacing and Detection Parameters were evaluated us Order Referral Cardiovascular CV IMPLANTABLE CAR DIAC DEVICE PROCEDURES Final Result from Last 3 Months Insurance MEDICARE [facility] Care Teams Information Coordinator Relationship Specialty Start Date End Date Chevy Pleitez MD [address] [place] [address] [address] [place], [place] PCP - General Internal Medicine 08/05/12
--- OUTSIDE RECORDS SUMMARY | 2025-01-13 08:40 | XMS_ITS | Patient Health Record ---
Author Organization [facility] Address [address] [place] [address] Care Team Providers Care Stretching Machine Operator Name Role Phone Maik AZUL, [place] Primary Care Provider Grzegorz Love Unavailable [phone] Reason For Referral No Information Medications Medication SIG (Take, Route, Fr equency, Duration) Notes Start Date End Date Status Tamsulosin HCl 0.4 MG TAKE 1 CAPSULE BY MOUTH EVERY DAY Oral twice a day Active ICaps 1 1 capsule Orally twice a day Active Gas Relief 80 MG 1 tablet after meals and at bedtime as needed Orally Four times a day Active Omeprazole 20 MG TAKE 1 CAPSULE TWICE DAILY for 90 Active Simvastatin 40 MG 1 tablet in the even ing Orally Once a day Active Immunizations Vaccine Route Administration Date Status Comme nts Influenza Unknown 06/01/2016 Administered Influenza Unknown 05/02/2019 Administered Problems Problem Type SNOMED Code ICD Code Onset Dates Problem Status W/U Status Risk Notes Problem 807052229 Abdominal bloati ng (R14.0) Active confirmed Problem 745745831 Abdominal disten roxanna (gaseous) (R14.0) Active confirmed Problem 662086423 Early satiety (R68.81) Active confirmed Problem 027303203 Gastroesophageal reflux disease without esophagitis (K21.9) Active confirmed Problem 845464030 Abnormal CT scan , stomach (R93.3) Active confirmed Problem 536686911 Abdominal pain, generalized (R10.84) Active confirmed Plan Of Treatment Future Test Test Name Order Date UPPER GI ENDOSCOPY 09/24/2016 Insurance Providers Payer Name Payer Address Payer Phone Subscriber Number Group Number Insured Name Patient Relationship to Insured Coverage Start Date Coverage End Date MEDICARE OF [employer] [address] [place] [address] [id number] CARO CASTAÑEDA Self - patient is the insured [employer] ATT[employer] CLAIMS [address] [place] [address] [id number] CARO CASTAÑEDA Self - patient is the insured Medical (General) History Medical History History ICD Code Denies [place],DM,CVA,Lung disease,renal dise ase Hyperlipidemia Pacemaker--age 34--replaced in 1979 and 2002 2 negative colonoscopies--most recent on e was in 2007 EGD in 10/2016-minimal HH, ga stritis with Hpylori-not treated, normal duodenal bx. Left renal mass seen on 11/18 CT scan(incidental finding)--may have cryotherapy-being seen by urology--the final workup with a CT scan with IV contrast revealed the lesion to only be a complex cyst and therefore a biopsy was not required BPH with bladder spasms--he describes a negative cystoscopy Surgical History Surgery Date(Month/Year) Appendectomy 1955 Pacemaker Thyroid nodule removal 1999 Knee surgery Orchiopexy at age 11
--- OUTSIDE RECORDS SUMMARY | 2025-01-13 08:40 | XMS_ITS ---
Author Organization [facility] Address [address] [place] [address] Care Team Providers Care Solvent Process Extractor Operator Name Role Phone Maik AZUL [place] Primary Care Provider UnaCarlie Márquez Unavailable [phone] Medications Medication SIG (Take, Route, Frequency, Duration) Notes Start Date End Date Status Physical Therapy . . . 2-3x/week for 3- 4 weeks 01/06/2019 Not-Taking ICaps Not-Taking Simvastatin 20 MG 1 tablet Orally Once a day Active Tamsulosin HCl 0.4 MG 1 capsule Orally O nce a day Active PreserVision/Lutein Active Omeprazole 20 MG 1 capsule 30 minutes before morning meal Orally Once a day for 30 day(s) Active Finasteride Active Voltaren 1 % as directed Externally Active Propranolol HCl 60 MG 1 tablet Orally Tw ice a day for 30 day(s) Active Encounters Encounter Location Date Provider Diagnosis [address] [address] 01/13/2025 Carlie Ridley Plan Of Treatment Next Appt Details Provider Name:Carlie noguera, 01/13/2025 09:30:00 AM, [address] [place] [address], [address], Progress Notes * Candido CASTAÑEDA SDOB: [birth year] (84 yo M)Acc No.[id number]:01/13/2025 Progress Note Patient:?Candido CASTAÑEDA Provider:?Carlie Ridley DPM :1940???Age:84 Y???Sex:Male Tl e:01/13/2025 Address:[id number] Pcp:Chevy Pleitez MD Subjective: * Chief Complaints: * ??? * Medical History:?Hypercholes terolemia, Benign prostatic hyperplasia (BPH), Arthritis, Back,Hip,and Knee pain, Cataracts, Sciatica, Measles, Chicken pox, Pacemaker, Cholesterol, Hiatal hernia, Macular degeneration, Reflux ( GERD). * Medications:?Taking Voltaren 1 % Gel as directed Externally [...] 1 capsule Orally Once a day , Not-Taking/PRN Physical Therapy . . . . 2-3x/week , Not-Taking/PRN ICaps Objective: * Vitals:? Assessment: Plan: * Treatment: * Images: * The named appointment provid er may or may not be the originator of this progress note, and it is not deemed complete until electronically signed by the appointment provider. Sign off status: Pending * Provider:?Carlie Ridley DPM Date:?0 01/13/2025 Generated for [place] prabhakar/Gage/Lucianoitting on:?01/13/2025 08:39 AM EDT
--- OUTSIDE RECORDS SUMMARY | 2025-01-13 08:40 | XMS_ITS | Patient Health Record ---
Author Organization [facility] ariadne [place] Address [address] [facility] [place] [address] Care Team Providers Care Retail Beauty Specialist Name Role Phone Maik AZUL, [place] Primary Care Provider Carlie Jj Unavailable [phone] Calvin Cartagena Unavailable [phone] Sandoval Palacio Unavailable [phone] Allergies No Known Allergies Reason For Referral No Information Medications Medication SIG (Take, Route, Frequency, Duration) Notes Start Date End Date Status Physical Therapy . . . 2-3x/week for 3- 4 weeks 01/06/2019 Not-Taking ICaps Not-Taking Simvastatin 20 MG 1 tablet Orally Once a day Active Tamsulosin HCl 0.4 MG 1 capsule Orally O nce a day Active Omeprazole 20 MG 1 capsule 30 minutes before morning meal Orally Once a day for 30 day(s) Active PreserVision/Lutein Active Finasteride Active Voltaren 1 % as directed Externally Active Propranolol HCl 60 MG 1 tablet Orally Tw ice a day for 30 day(s) Active Immunizations Vaccine Route Administration Date Status Comme nts COVID-19 Moderna Vaccine Unknown 05/07/2022 Administered 1st 10/05/20 4th 11/29/20 2nd 11/02/20 3rd 06/25/21 Social History Tobacco Use: Social History Observation [...] Problem Status W/U Status Risk Notes Problem Localized, primary osteoarthritis of the ankle and/or foot (935140131) Primary osteoarthritis, left ankle and foot (M19.072) Active confirmed Problem Onychomycosis (627450720) Onychomycosis (B35.1) Active confirmed Problem 177687995 Degenerative arthritis of toe joint, right (M19.071) Active confirmed Vital Signs Blood pressure diastolic 65 mm Hg 10/13/2024 Height 5 ft 10 in in 10/13/2024 Blood pressure systolic 120 mm Hg 10/13/2024 Weight 165 lbs 10/13/2024 BMI 23.67 kg/m2 10/13/2024 Procedures Procedure Date Ordered Date Performed Result Body Sit e 70597-GBVJAXG NAIL, 6 OR MORE 10/13/2024 N/A Encounters Encounter Location Date Provider Diagnosis [address] [address] 04/05/2024 Calvin Cartagena Tinea unguium B35.1 ; Pain in right toe(s) M79.674 ; Pain in left toe(s) M79.675 ; Primary osteoarthritis, left ankle and foot M19.072 ; Plantar fascial fibromatosis M72.2 ; Localized edema R60.0 ; Ingrowing nail L60.0 and Degenerative arthritis of toe joint, right M19.[address] [address] 07/07/2024 Carlie Ridley Tinea unguium B35.1 ; Pain in right toe(s) M79.674 and Pain in left toe(s) M79.675 [facility] [address] [address] 10/13/2024 Sandoval Palacio Pain in right toe(s) M79.674 ; Onychomycosis B35.1 and Pain in left toe(s) M79.[address] [address] 10/04/2024 Carlie Ridley Assessments Encounter Date Diagnosis (ICD Code) Assessment Notes Treatment Notes Treatment Clinical Notes Section Notes 04/05/2024 Tinea unguium (ICD-10 - B35.1) 04/05/2024 Pain in right toe(s) (ICD-10 - M79.674) 07/07/2024 Tinea unguium (ICD-10 - B35.1) 07/07/2024 Pain in right toe(s) (ICD-10 - M79.674) 10/13/2024 Pain in right toe(s) (ICD-10 - M79.674) 10/13/2024 Onychomycosis (ICD-10 - B35.1) 07/07/2024 Pain in left toe(s) (ICD-10 - M79.675) 04/05/2024 Pain in left toe(s) (ICD-10 - M79.675) 04/05/2024 Primary osteoarthritis, left ankle and foot (ICD-10 - M19.072) 10/13/2024 Pain in left toe(s) (ICD-10 - M79.675) 04/05/2024 Plantar fascial fibromatosis (ICD-10 - M72.2) 04/05/2024 Localized edema (ICD-10 - R60.0) 04/05/2024 Ingrowing nail (ICD-10 - L60.0) 04/05/2024 Degenerative arthritis of toe joint, right (ICD-10 - M19.071) Plan Of Treatment Pending Test Test Name Order Date [id number]-[id number] NAIL, 6 OR MORE 10/13/2024, J0702- INJECT or DRAIN, JOINT/BUR SA 02/03/2019, J0702- INJECT or DRAIN, JOINT/BUR SA 02/17/2019 Next Appt Details Provider Name:Carlie Luevanosweta noguera, 01/13/2025 09:30:00 AM, [address] [facility], [place], [address], Insurance Providers Payer Name Payer Address Payer Phone Subscriber Number Group Number Insured Name Patient Relationship to Insured Coverage Start Date Coverage End Date Medicare National [employer] [address] [facility] [place] [address] [id number] Candido Liang Self - patient is the insured [employer] [facility] [address] [place] [address] [id number] Candido Liang Self - patient is the insured Medical (General) History Medical History History ICD Code Hypercholesterolemia Benign prostatic hyperplasia (BPH) Arthritis Back,Hip,and Knee pain Cataracts Sciatica Measles Chicken pox Pacemaker Cholesterol Hiatal hernia Macular degeneration Reflux ( GERD) Surgical History Surgery Date(Month/Year) Orchiopexy thyroid nodule removal 1989' appendectomy 1949' right knee arthroscopy cardiac pacemeker 1974 tonsillectomy trigger finger release colonoscopy endoscopy orchcodexy 1950
--- OUTSIDE RECORDS SUMMARY | 2025-01-13 08:40 | XMS_ITS ---
Author Organization [facility] Address [address] [place] [address] Care Team Providers Care Scholarship Counselor Name Role Phone Maik AZUL, [place] Primary Care Provider UnaCarlie Márquez Unavailable [phone] Medications Medication SIG (Take, Route, Frequency, Duration) Notes Start Date End Date Status Tamsulosin HCl 0.4 MG 1 capsule Orally O nce a day Active Physical Therapy . . . 2-3x/week for 3- 4 weeks 01/06/2019 Not-Taking PreserVision/Lutein Active Simvastatin 20 MG 1 tablet Orally Once a day Active Omeprazole 20 MG 1 capsule 30 minutes before morning meal Orally Once a day for 30 day(s) Active Propranolol HCl 60 MG 1 tablet Orally Tw ice a day for 30 day(s) Active Voltaren 1 % as directed Externally Active ICaps Not-Taking Finasteride Active Encounters Encounter Location Date Provider Diagnosis [address] [address] 10/07/2024 Carlie Ridley Plan Of Treatment Next Appt Details Provider Name:Carlie noguera, 01/13/2025 09:30:00 AM, [address] [place], [address], Progress Notes * Candido CASTAÑEDA SDOB: [birth year] (84 yo M)Acc No.[id number]:10/07/2024 Progress Note Patient:?Candido CASTAÑEDA Provider:?Carlie Ridley DPM :1940???Age:84 Y???Sex:Male Tl e:10/07/2024 Address:[id number] Pcp:Chevy Pleitez MD Subjective: * Chief Complaints: [...] status: Pending * Provider:?Carlie Ridley DPM Date:?0 10/07/2024 Generated for [place] prabhakar/Gage/Lucianoitting on:?01/13/2025 08:40 AM EDT
[2025-01-13 11:13] LABS: Prostate Specific Antigen 1.87 ng/mL (<0.05-4.0)
== END 2025-01-13 08:23 | disposition home or self-care (01) ==
LOC: HO.10HDL 08:22
PROVIDERS: Visit Provider Urology
DX: N40.1 Benign prostatic hyperplasia with lower urinary tract symptoms (principal); Z12.5 Encounter for screening for malignant neoplasm of prostate
CPT/HCPCS: 36415; 84153

== ENCOUNTER 2025-01-20 10:45 | Outpatient (AMB) | payer MEDICARE, SELFPAY ==
--- NOTE | 2025-01-20 10:58 | A.OFFVIS_ITS ---
Intake Visit Reasons: 1 yr follow up/ Labs/ PVR Intake Note: Patient is Present for 1Y PVR/LABS Urology Med: Tamsulosin, Finasteride Antibiotic Allergy: None Blood Thinner: None PVR: 0ML'S TODAY'S PVR:0ML'S Glove Maker Required: No Allergies No Known Allergies Allergy (Mild, Verified 01/20/25 10:59) N/A HPI Comments Details: Candido is a pleasant male. 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 He is seen for the following urologic conditions - lower urinary tract symptoms - elevated PSA 12 month follow-up PVR 0 cc Combination therapy with Flomax maximal dose plus finasteride Lower urinary tract symptoms responds well to Flomax 0.8 mg p.o. 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 right nodule base continue alpha-maggy with finasteride Elevated PSA Variable ranging from 3.8-5.1 PSA 01/19 5.0, 06/21 1.9, 12/21 1.4, 01/21 1.6, 09/24 2, 01/23 1.9 Continue finasteride with yearly review Complex renal cyst Left side 2 x 1 cm cyst December 2019 Stable last imaging 2021 no need for follow-up [facility] Medical History Multiple premature ventricular complexes GERD (gastroesophageal reflux disease) Pure hypercholesterolemia Groin pain Obstructive and reflux uropathy Wrist tendonitis Cardiac pacemaker Surgical History History of colonoscopy History of surgery Trigger finger History of tonsillectomy H/O arthroscopy of right knee History of appendectomy Family History Father Cancer Mother Cancer Social History Housing: House Alcohol intake: current Alcohol intake frequency: holidays/special occasions only Patient Tobacco Use Status: Never used Tobacco e-Cigarette/Vaping Use: Never Used Second Hand Smoke Exposure: No service: Yes 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 Cognitive needs: No Hearing needs: No Vision needs: No Review of Systems Const Denies chills and Denies fever(s) Card Reports no additional complaints and Denies syncope Resp Denies cough GI Denies abdominal pain and Denies heartburn Reports as per HPI and Denies change in libido Neuro Denies syncope Psych Denies change in libido Endo Denies change in libido Physical Exam Const General: cooperative, healthy appearing, comfortable and no acute distress Orientation/consciousness: patient oriented x3 HEENT Face and sinus: Yes normal facial exam Mouth: moist mucous membranes Neck Neck: Yes normal visual inspection, Yes full ROM and Yes trachea midline Chest Chest palpation & inspection: normal inspection of the chest Resp Effort & Inspection: normal respiratory effort, able to speak in complete sentences and no respiratory distress GI Inspection: Yes normal to inspection Back/Spine/Pelvis Cervical Spine: normal cervical lordosis Thoracic/Lumbar Spine: thoracic and lumbar spine normal to inspection Skin General skin exam: no rashes or lesions noted Neuro General: patient oriented x3, gait normal, tone normal and moves all extremities Extrem General: Yes normal to inspection and Yes capillary refill normal Office Procedures Post Void Residual Post Residual Void Post Void Residual (PVR): 0 60921-Xmtl Void Residual by ultrasound Assessment & Plan Assessment & Plan (1) BPH (benign prostatic hyperplasia): Code(s): N40.0 - Benign prostatic hyperplasia without lower urinary tract symptoms Category: Medical Qualifiers: Lower urinary tract symptom presence: symptoms present Lower urinary tract symptom detail: urinary frequency Qualified Code(s): N40.1 - Benign prostatic hyperplasia with lower urinary tract symptoms; R35.0 - Frequency of micturition (2) Decreased urine stream: Code(s): R39.198 - Other difficulties with micturition Category: Medical (3) Elevated PSA: Code(s): R97.20 - Elevated prostate specific antigen [PSA] Category: Medical Plan Twelve month follow-up check PSA Orders: Orders Prostate Specific Antigen 12 Months N40.1 - Benign prostatic hyperplasia with lower urinary tract symptoms Patient Instructions: This note is constructed using voice recognition software. While every effort has been made to ensure accuracy sephora operations consultant errors may have been included. Imaging studies, laboratory and physical exam results were discussed and reviewed in detail. No major barriers to patient understanding were identified. An opportunity to ask questions regarding the treatment plan was provided. All questions were answered. The patient expressed understanding and agreement with the above treatment plan. The patient is aware they should contact our office by phone for worsening of their current condition or the appearance of new urologic symptoms. Compliance is encouraged with any medications and followup testing that is ordered. It is a privilege to participate in the urologic care of your patient. If you have any questions or concerns regarding treatment for the above conditions, or other urologic issues, please do not hesitate to contact me. The office telephone contact is [phone]. Sincerely, Dr Juan C Singh MD, BINA [facility] - Urology Compassionate Specialist Care for the Genitourinary System Coding Level of Care Code Est Pt Level 4 (33634) Complex EM visit Add On G2211 Diagnoses Benign prostatic hyperplasia with urinary frequency N40.1; R35.0 Lower urinary tract symptom presence: symptoms present Lower urinary tract symptom detail: urinary frequency Decreased urine stream R39.198 Elevated PSA R97.20 CPT Codes Post Residual Void - PVR CPT Code: 44451-Wpjo Void Residual by ultrasound ([id number])
--- OUTSIDE RECORDS SUMMARY | 2025-01-20 11:28 | XMS_ITS | Patient Health Record ---
Author Organization [facility] Address [address] [facility] [place] [address] Care Team Providers Care Felt Hooker Name Role Phone Maik AZUL, [place] Primary Care Provider Carlie Jj Unavailable [phone] Calvin Cartagena Unavailable [phone] Sandoval Palacio Unavailable [phone] Allergies No Known Allergies Reason For Referral No Information Medications Medication SIG (Take, Route, Frequency, Duration) Notes Start Date End Date Status Simvastatin 20 MG 1 tablet Orally Once a day Active Omeprazole 20 MG 1 capsule 30 minutes before morning meal Orally Once a day for 30 day(s) Active PreserVision/Lutein Active Propranolol HCl 60 MG 1 tablet Orally Tw ice a day for 30 day(s) Active Finasteride Active Voltaren 1 % as directed Externally Active ICaps Not-Taking Tamsulosin HCl 0.4 MG 1 capsule Orally O nce a day Active Physical Therapy . . . 2-3x/week for 3- 4 weeks 01/06/2019 Not-Taking Immunizations Vaccine Route Administration Date Status Comme [...] primary osteoarthritis of the ankle and/or foot (848799933) Primary osteoarthritis, left ankle and foot (M19.072) Active confirmed Problem Onychomycosis (346717934) Onychomycosis (B35.1) Active confirmed Problem 406771950 Degenerative arthritis of toe joint, right (M19.071) Active confirmed Vital Signs Blood pressure diastolic 65 mm Hg 01/13/2025 Height 5 ft 10 in in 01/13/2025 Blood pressure systolic 120 mm Hg 01/13/2025 Weight 168 lbs 01/13/2025 BMI 24.1 kg/m2 01/13/2025 Procedures Procedure Date Ordered Date Performed Result Body Sit e 88884-JGMLWKX NAIL, 6 OR MORE 10/13/2024 N/A 68872-SABRBSF NAIL, OR MORE 01/13/2025 N/A Encounters Encounter Location Date Provider Diagnosis [address] [address] 04/05/2024 Calvin Cartagena Tinea unguium B35.1 ; Pain in right toe(s) M79.674 ; Pain in left toe(s) M79.675 ; Primary osteoarthritis, left ankle and foot M19.072 ; Plantar fascial fibromatosis M72.2 ; Localized edema R60.0 ; Ingrowing nail L60.0 and Degenerative arthritis of toe joint, right M19.[address] [address] 07/07/2024 Carlie Ridley Tinea unguium B35.1 ; Pain in right toe(s) M79.674 and Pain in left toe(s) M79.675 [facility] [address] [address] 10/13/2024 Sandoval Palacio Pain in right toe(s) M79.674 ; Onychomycosis B35.1 and Pain in left toe(s) M79.[address] [address] 01/13/2025 Carlie Ridley Pain in right toe(s) M79.674 ; Onychomycosis B35.1 and Pain in left toe(s) M79.675 [facility] [address] [address] 10/04/2024 Carlie Ridley Assessments Encounter Date Diagnosis (ICD Code) Assessment Notes Treatment Notes Treatment Clinical Notes Section Notes 04/05/2024 Tinea unguium (ICD-10 - B35.1) 04/05/2024 Pain in right toe(s) (ICD-10 - M79.674) 07/07/2024 Tinea unguium (ICD-10 - B35.1) 07/07/2024 Pain in right toe(s) (ICD-10 - M79.674) 10/13/2024 Pain in right toe(s) (ICD-10 - M79.674) 01/13/2025 Pain in right toe(s) (ICD-10 - M79.674) 01/13/2025 Onychomycosis (ICD-10 - B35.1) 10/13/2024 Onychomycosis (ICD-10 - B35.1) 07/07/2024 Pain in left toe(s) (ICD-10 - M79.675) 04/05/2024 Pain in left toe(s) (ICD-10 - M79.675) 04/05/2024 Primary osteoarthritis, left ankle and foot (ICD-10 - M19.072) 10/13/2024 Pain in left toe(s) (ICD-10 - M79.675) 01/13/2025 Pain in left toe(s) (ICD-10 - M79.675) 04/05/2024 Plantar fascial fibromatosis (ICD-10 - M72.2) 04/05/2024 Localized edema (ICD-10 - R60.0) 04/05/2024 Ingrowing nail (ICD-10 - L60.0) 04/05/2024 Degenerative arthritis of toe joint, right (ICD-10 - M19.071) Plan Of Treatment Pending Test Test Name Order Date 06997-OPUUXTH NAIL, 6 OR MORE 10/13/2024 64000-MQIXXFM NAIL, 6 OR MORE 01/13/2025, J0702- INJECT or DRAIN, JOINT/BUR SA 02/03/2019, J0702- INJECT or DRAIN, JOINT/BUR SA 02/17/2019 Next Appt Details Provider Name:Carlie noguera, 05/12/2025 11:00:00 AM, [address] [place], [address], Insurance Providers Payer Name Payer Address Payer Phone Subscriber Number Group Number Insured Name Patient Relationship to Insured Coverage Start Date Coverage End Date Medicare National [facility] [employer] [address] [facility] [address] [id number] Candido Liang Self - patient is the insured [employer] [address] [place] [address] [id number] Candido Liang Self - patient is the [...] trigger finger release colonoscopy endoscopy orchcodexy 1950 skin cancer removed from nose 12/2024 Hospitalization History Reason Date(Month/Year) pneumonia, neuro virus 09/25
--- OUTSIDE RECORDS SUMMARY | 2025-01-20 11:28 | XMS_ITS ---
Author Organization [facility] Address [address] [place] [address] Care Team Providers Care Groundman/Lineman Name Role Phone Maik AZUL, [place] Primary Care Provider Unabyron chu Khai Carlie Unavailable [phone] Allergies No Known Allergies REASON FOR VISIT Painful nail(s) aggravated by shoes causing difficulty standing/walking Medications Medication SIG (Take, Route, Frequency, Duration) Notes Start Date End Date Status Simvastatin 20 MG 1 tablet Orally Once a day Active PreserVision/Lutein Active ICaps Not-Taking Tamsulosin HCl 0.4 MG 1 capsule Orally O nce a day Active Physical Therapy . . . 2-3x/week for 3- 4 weeks 01/06/2019 Not-Taking Omeprazole 20 MG 1 capsule 30 minutes before morning meal Orally Once a day for 30 day(s) Active Propranolol HCl 60 MG 1 tablet Orally Tw ice a day for 30 day(s) Active Finasteride Active Voltaren 1 % as directed Externally Active Social History Tobacco Use: Social History Observation Description Date Details (start date - stop date) Never Smoker NA - NA Tobacco use other than smoking: Question Answer Notes Are you an other tobacco user? No Tobacco Control (Standard) Question Answer Notes Tobacco use: Nonsmoker Additional Findings: Tobacco non-user Current no nsmoker Vital Signs Height 5 ft 10 in in 01/13/2025 Weight 168 lbs 01/13/2025 BMI 24.1 kg/m2 01/13/2025 Blood pressure systolic 120 mm Hg 01/14/20 25 Blood pressure diastolic 65 mm Hg 025 Procedures Procedure Date Ordered Date Performed Result Body Sit e 56318-JORSOPA NAIL, 6 OR MORE 01/13/2025 N/A Encounters Encounter Location Date Provider Diagnosis [facility] [address] [address] 01/13/2025 Carlie Ridley Pain in right toe(s) M79.674 ; Onychomycosis B35.1 and Pain in left toe(s) M79.675 Assessments Encounter Date Diagnosis (ICD Code) Assessment Notes Treatment Notes Treatment Clinical Notes Section Notes 01/13/2025 Pain in right toe(s) (ICD-10 - M79.674) 01/13/2025 Onychomycosis (ICD-10 - B35.1) 01/13/2025 Pain in left toe(s) (ICD-10 - M79.675) Plan Of Treatment Pending Test Test Name Order Date [id number] NAIL, 6 OR MORE 01/13/2025 Next Appt Details Follow Up: 4 Months, Reason: Provider Name:Carlie noguera, 05/12/2025 11:00:00 AM, [address] [place] [address], [address], Procedure Notes * Category Sub-Category Detail Notes [...] use of a nail nipper and/or dremel-type microgrinder operator, to a more viable healthy nail plate [...] to maintain effectiveness in symptomatic relief - Progress Notes * Candido CASTAÑEDA SDOB: [birth year] (84 yo M)Acc No.[id number]:01/13/2025 Progress Note Patient:?Candido CASTAÑEDA Provider:?Carlie Ridley DPM :1940???Age:84 Y???Sex:Male Tl e:01/13/2025 [facility] Pcp:Chevy Pleitez MD Subjective: * Chief Complaints: [...] 1974tonsillectomy trigger finger release colonoscopy endoscopy orchcodexy kin cancer removed from nose 12/2024 * Hospitalization/Major Diagno stic Procedure:?pneumonia, neuro virus 09/25 * Family History:?Mother: dece ased, Breast Cancer, diagnosed with Other malignant neoplasm of unspecified site.?Father: , diagnosed with Other malignant neoplasm of unspecified site.?Paternal Grand Mother: Ovarian cancer.?Paternal uncle: Colon Cancer.? * Social History:?Tobacco Use:?Tobacco use other than smoking?Are you an other tobacco user??No ?Tobacco Control (Standard)?Tobacco use:?Nonsmoker ?Additional Findings: Tobacco non-user?Current nonsmoker ???Miscellaneous:?Caffeine: no, none. ?Children: yes, 2. ?Exercise: yes, walking, crime scene photographer, reading. ?Marital status: . 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 * Medications:?TakingVoltaren 1 % Gel as directed [...] Objective: * Vitals:?Ht: 5 ft 10 in, Wt: 168, BMI: 24.1, Shoe size: 8.5, BP: 120/65 mm Hg, Wt-k.2 kg. * Examination: ???Nails: ?NAILS are:?Elongated, overgrown, [...] use of a nail nipper and/or dremel-type microgrinder operator, to a more viable healthy nail plate [...] to maintain effectiveness in symptomatic relief - 72600.? * Procedure Codes:?53275 DEBRI DE NAIL, 6 OR MORE * Follow Up:?4 Months * Images: * Sign off status: Completed true * Provider:?Carlie Ridley DPM Date:?0 01/13/2025 Generated for [place] prabhakar/Gage/Suhas on:?01/20/2025 11:28 AM EDT History and Physical Notes * [...]
--- OUTSIDE RECORDS SUMMARY | 2025-01-20 11:28 | XMS_ITS | Clinical Summary ---
Author Organization [address] [place] [address] Address [address] [place] [address] Phone Care Team Providers Care Skating Rink Ice Maker Name Role Phone Chevy Pleitez MD Primary Care Provider [phone] Allergies No known active allergies Medications finasteride [...] Type Department Care Team Description 12/06/2024 Telephone [facility] - [address] [place] [address] Randal Cortes MD Med Refill from Last 3 Months Social History Tobacco [...] Description 04/20/2025 9:30 AM EDT Ancillary Procedure [facility] - [address] [place] [address] 08/09/2025 1:30 PM EST Office Visit [facility] [address] [place] [phone] Randal Cortes MD [address] [place] [address] Health Maintenance Due Date Last Done Comments [...] on patient's age to complete this topic Insurance MEDICARE [employer] Care Teams Skating Rink Ice Maker Relationship Specialty Start Date End Date Chevy Pleitez MD [address] [place] [address] [address] [place], [place] PCP - General Internal Medicine 08/05/12
--- OUTSIDE RECORDS SUMMARY | 2025-01-20 11:28 | XMS_ITS ---
Author Organization [facility] Address [address] [facility] [place] [address] Care Team Providers Care Chief Librarian Extension Department Name Role Phone Maik AZUL, [place] Primary Care Provider Unabyron LuevanoakerCarlie Unavailable [phone] Sandoval Palacio Unavailable [phone] Allergies No Known Allergies REASON FOR VISIT [...] Status W/U Status Risk Notes Problem Onychomycosis (354815681) Onychomycosis (B35.1) Active confirmed Vital Signs Height 5 ft 10 in in 10/13/2024 Weight 165 lbs 10/13/2024 BMI 23.67 kg/m2 10/13/2024 Blood pressure systolic 120 mm Hg 10/13/19 25 Blood pressure diastolic 65 mm Hg 025 Procedures Procedure Date Ordered Date Performed Result Body Sit e 68155-CSQGYXI NAIL, 6 OR MORE 10/13/2024 N/A Encounters Encounter Location Date Provider Diagnosis [facility] [place] [address] [address] 10/13/2024 Sandoval Pia Pain in right toe(s) M79.674 ; Onychomycosis B35.1 and Pain in left toe(s) M79.675 Assessments Encounter Date Diagnosis (ICD Code) Assessment Notes Treatment Notes Treatment Clinical Notes Section Notes 10/13/2024 Pain in right toe(s) (ICD-10 - M79.674) 10/13/2024 Onychomycosis (ICD-10 - B35.1) 10/13/2024 Pain in left toe(s) (ICD-10 - M79.675) Plan Of Treatment Pending Test Test Name Order Date 29611-NLBLUPR NAIL, 6 OR MORE 10/13/2024 Next Appt Details Follow Up: prn, Reason: Provider Name:Carlie noguera, 05/12/2025 11:00:00 AM, [address] [place] [address], [phone], Procedure Notes * Category Sub-Category Detail [...] use of a nail nipper and/or dremel-type convex grinder operator, to a more viable healthy nail [...] to maintain effectiveness in symptomatic relief - 20854 Progress Notes * Candido CASTAÑEDA SDOB: [birth year] (84 yo M)Acc No.[id number]:10/13/2024 Progress Note Patient:?Candido CASTÑAEDA S Provider:?Sandoval Palacio DPM :1940???Age:84 Y???Sex:Male Tl e:10/13/2024 Address:[address] [place] [address] [facility] Pcp:Chevy Pleitez MD Subjective: * Chief Complaints: [...] none. ?Children: yes, 2. 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 ?Marital status: . 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 * Procedure Codes:?67132 DEBRI DE NAIL, 6 OR MORE * Follow Up:?prn * Images: * Sign off status: Completed true * Provider:?Sandoval Palacio DPM Date:?2024 Generated for Lowell prabhakar/Gage/Lucianoitting on:?01/20/2025 11:28 AM EDT History and Physical [...]
--- OUTSIDE RECORDS SUMMARY | 2025-01-20 11:29 | XMS_ITS ---
Author Organization [facility] Address [address] [place] [address] Care Team Providers Care Desk Manager Name Role Phone Maik AZUL, [place] Primary Care Provider UnaCarlie Márquez Unavailable [phone] Medications Medication SIG (Take, Route, Frequency, Duration) [...] Active Encounters Encounter Location Date Provider Diagnosis [address] [address] 10/07/2024 Carlie Ridley Plan Of Treatment Next Appt Details Provider Name:Carlie noguera, 05/12/2025 11:00:00 AM, [address] [place], [address], Progress Notes * Candido CASTAÑEDA SDOB: [birth year] (84 yo M)Acc No.[id number]:10/07/2024 Progress Note Patient:?Candido CASTAÑEDA Provider:?Carlie Ridley DPM :1940???Age:84 Y???Sex:Male Tl e:10/07/2024 Address:[place] Pcp:Chevy Pleitez MD Subjective: * Chief Complaints: [...] DPM Date:?0 10/07/2024 Generated for Lowell prabhakar/Gage/Lucianoitting on:?01/20/2025 11:28 AM EDT
--- OUTSIDE RECORDS SUMMARY | 2025-01-20 11:29 | XMS_ITS | Patient Health Record ---
Author Organization [facility] Address [address] [place] [address] Care Team Providers Care Public Health Clinical Nurse Specialist Name Role Phone Maik AZUL, [place] Primary Care Provider Grzegorz Love Unavailable [phone] Reason For Referral No Information Medications Medication [...] Problem Status W/U Status Risk Notes Problem 743946310 Abdominal bloati ng (R14.0) Active confirmed Problem 417621202 Abdominal disten roxanna (gaseous) (R14.0) Active confirmed Problem 018817032 Early satiety (R68.81) Active confirmed Problem 971048998 Gastroesophageal reflux disease without esophagitis (K21.9) Active confirmed Problem 156199971 Abnormal CT scan , stomach (R93.3) Active confirmed Problem 295211774 Abdominal pain, generalized (R10.84) Active confirmed Plan Of Treatment Future Test Test Name Order Date UPPER GI ENDOSCOPY 09/24/2016 Insurance Providers Payer Name Payer Address Payer Phone Subscriber Number Group Number Insured Name Patient Relationship to Insured Coverage Start Date Coverage End Date MEDICARE OF [place] [address] [place] [address] [id number] CARO CASTAÑEDA Self - patient is the insured [employer] ATT[employer] CLAIMS [address] [place] [address] [id number] CARO CASTAÑEDA Self - patient is the insured Medical (General) History Medical History History ICD Code Denies MS,DM,CVA,Lung disease,renal dise ase Hyperlipidemia Pacemaker--age 34--replaced in [...]
== END 2025-01-20 11:23 | disposition home or self-care (01) ==
LOC: HO.HUSH 10:45
PROVIDERS: PCP Internal Medicine; Visit Provider Urology
DX: N40.1 Benign prostatic hyperplasia with lower urinary tract symptoms (principal); R35.0 Frequency of micturition; R39.198 Other difficulties with micturition; R97.20 Elevated prostate specific antigen [PSA]
CPT/HCPCS: 99214; G2211

== ENCOUNTER → 2025-01-20 10:45 | Outpatient (BNVA) | payer MEDICARE, SELFPAY | PROVIDERS: PCP Internal Medicine; Visit Provider Urology | DX: N40.1 Benign prostatic hyperplasia with lower urinary tract symptoms (principal); R35.0 Frequency of micturition; R39.198 Other difficulties with micturition; R97.20 Elevated prostate specific antigen [PSA] | CPT/HCPCS: 51798; 99212 ==

== ENCOUNTER 2025-02-02 08:22 | Outpatient (AMB) | payer MEDICARE, SELFPAY ==
--- NOTE | 2025-02-02 08:30 | MHC.PC.OV ---
Vital Signs 02/02/25 08:31 Height 5 ft 10 in Weight 166 lb 4 oz BMI 23.9 BP 130/62 Blood Pressure Location Lt brachial Position Standing Pulse Source Pulse Oximeter Pulse Oximetry (%) 98 Oxygen Delivery Method Room Air Intake Visit Reasons: Request for PT Dye Range Tender Required: No Accompanied by: Self / Same As Patient Allergies No Known Allergies Allergy (Mild, Verified 02/02/25 08:38) N/A Medication List - Last Reconciled 02/02/25 by Kim Martell PA-C arm brace (Wrist Brace) COMFORT FORM WRIST, rt, M finasteride 5 mg PO DAILY 90 days omeprazole 40 mg PO DAILY propranolol ER 60 mg PO DAILY simvastatin 20 mg PO BEDTIME tamsulosin 0.8 mg (2 x 0.4 mg) PO DAILY 90 days Tobacco use date assessed: 02/02/25 Fall risk assessment: No Falls in past year Last assessed Fall Risk: 02/02/25 Dental Screening Dental Screen Date: 02/02/25 Did you have a dental visit in the last 12 months?: Yes Did you have a dental problem in the last 6 months where you did not have access to dental care?: No Was dental information given to patient?: Patient has dentist HPI Request for PT HPI Details 84-year-old male with past medical history of BPH, hypercholesterolemia, GERD last seen 09/2024 coming in for acute problem. Presenting with chronic low back pain and generalized fatigue. The chronic low back pain has persisted for 30 years with recent aggravation. It is lower back-specific, does not radiate, and is connected to known lumbar osteoarthritis. The pain worsens when rising from a seated position but is absent at night and does not disrupt sleep. Generalized fatigue noted with significant reduction in exercise tolerance from 3-4 mile walks to half a mile. The fatigue appears independent of pain from the back and is primarily during exertion, with episodic drowsiness during sedentary activities such as watching TV. The patient reports adherence to exercise though less frequent lately due to fatigue. Also mentions muscular fatigue of bilateral quads. [facility], [facility] Medical History Multiple premature ventricular complexes GERD (gastroesophageal reflux disease) Pure hypercholesterolemia Groin pain Obstructive and reflux uropathy Wrist tendonitis Cardiac pacemaker Surgical History History of colonoscopy History of surgery Trigger finger History of tonsillectomy H/O arthroscopy of right knee History of appendectomy Family History Father Cancer Mother Cancer Social History Housing: House Alcohol intake: current Alcohol intake frequency: holidays/special occasions only Patient Tobacco Use Status: Never used Tobacco e-Cigarette/Vaping Use: Never Used Second Hand Smoke Exposure: No service: Yes 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 1. Little interest or pleasure in doing things: not at all 2. Feeling down, depressed, or hopeless: not at all 3. Trouble falling or staying asleep, or sleeping too much: nearly every day 4. Feeling tired or having little energy: nearly every day 5. Poor appetite or overeating: not at all 6. Feeling bad about yourself - or that you are a failure or have let yourself or your family down: not at all 7. Trouble concentrating on things, such as reading the newspaper or watching television: not at all 8. Moving or speaking so slowly that other people could have noticed. Or the opposite - being so fidgety or restless that you have been moving around a lot more than usual: not at all 9. Thoughts that you would be better off or of hurting yourself in some way: not at all Total score: 6 Depression Screening Interpretation: Positive Depression Screening Done: Yes Source: Developed by Drs. Grzegorz Cardenas, Nikki Casas, Nam Kee and colleagues, with an educational yue from [employer]. Thrive Questionnaire Date Thrive assessed: 02/02/25 I am a: Patient What is your living situation today?: I have a steady place to live Within the past 12 months, did the food you bought not last and you didn't have the money to get more?: Never true Within the past 12 months, did you worry whether your food would run out before you got money to buy more?: Never true Do you have trouble paying for medicines?: No Do you have trouble getting transportation to medical appointments?: No Do you have trouble paying your heating and electricity bill?: No Do you have trouble taking care of your child, family member or friend?: No Do you have trouble with day-to-day activities such as bathing, preparing meals, shopping, managing finances, etc.?: No Are you currently unemployed and looking for a job?: No Are you interested in more education?: No Please select the resources that you would like help with: None Currently or been in a relationship where the following occur: No concerns reported THRIVE Score: 0 AUDIT C Alcohol Use Questionnaire (AUDIT-C) 1. How often do you have a drink containing alcohol?: Monthly or less 2. How many drinks containing alcohol do you have on a typical day when you are drinking?: 1 or 2 Total Score: 1 ROSA-7 AMB Questionnaire ROSA-7 Date ROSA - 7 assessed: 02/02/25 Feeling nervous, anxious, or on edge: 0 = Not at all Not being able to stop or control worryin = Not at all Worrying too much about different things: 0 = Not at all Trouble relaxin = Not at all Being so restless that it is hard to sit still: 0 = Not at all Becoming easily annoyed or irritable: 0 = Not at all Feeling afraid as if something awful might happen: 0 = Not at all Total ROSA-7 score (0-4 normal; 5-9 mild; 10-14 moderate; 15-21 severe): 0 Source: Developed by Drs. Grzegorz Cardenas, Nikki Casas, Nam Kee and colleagues, with an educational yue from [employer]. Review of Systems Const Denies body aches, Denies chills and Denies fever(s) Eyes Reports no additional complaints ENT Denies dizziness Card Denies chest pain and Denies dyspnea Resp Denies dyspnea Details: No bowel or bladder dysfunction or incontinence Musc Reports as per HPI and Denies abnormal gait Skin/Breast Reports system reviewed and no additional complaints, except as documented Neuro Denies abnormal gait and Denies dizziness Psych Reports no additional complaints Physical exam (Primary Care) Vital Signs: Last Vital Signs BP 130/62 02/02/25 08:31 Pulse Ox 98 02/02/25 08:31 Oxygen Delivery Method Room Air 02/02/25 08:31 BMI result Body Mass Index 23.9 Tobacco/Smoking Status: Tobacco use Status Tobacco use date assessed 02/02/25 02/02/25 08:37 Patient Tobacco Use Status Never used Tobacco 02/02/25 08:37 e-Cigarette/Vaping Use Never Used 02/02/25 08:37 PHQ-9: PHQ-9 Score PHQ-9: Total score 6 02/02/25 09:33 Depression Screening Interpretation: Positive Thrive Assessment: Date of Thrive Assessment Date Thrive assessed 02/02/25 02/02/25 08:37 Currently or been in a relationship where the following occur: No concerns reported Const General: cooperative, healthy appearing, comfortable and no acute distress Orientation/consciousness: patient oriented x3 HENMT Head: Yes normocephalic Ears: hearing grossly normal bilaterally General nose exam: Normal external nose present Eyes General: appearance normal, both eyes and all related structures Conjunctivae: conjunctivae normal Neck Neck: Yes full ROM and Yes no lymphadenopathy Resp Effort & Inspection: normal respiratory effort Auscultation: clear to auscultation bilaterally, no crackles, no rales, no rhonchi and no wheezes Cardio Rate: regular rate Rhythm: regular rhythm Skin General skin exam: no rashes or lesions noted Neuro General: patient oriented x3 Gait exam (Neuro): Normal gait present Extrem Other: No tenderness to palpation of bilateral thighs, knees, and calves. no leg swelling General: Yes normal to inspection, Yes full ROM and No edema Psych Affect: normal affect Attitude: cooperative Insight: Good insight present (Psych) Judgement: Good judgement present (Psych) Coding Level of Care Code Est Pt Level 3 (34377) Diagnoses Low back pain M54.50 Muscle fatigue M62.89 Assessment & Plan Assessment & Plan (1) Low back pain: Code(s): M54.50 - Low back pain, unspecified Category: Medical Plan: Referral was placed to PT today at patient request. Continue with tylenol prn for pain. (2) Muscle fatigue: Code(s): M62.89 - Other specified disorders of muscle Category: Medical Plan: Plan to order for blood work for further evaluation. Discussed possibility of sleep apnea testing but patient declining apneic episodes or difficulty sleeping. PT referral placed. Plan For chronic low back pain and generalized fatigue, I will initiate physical therapy to improve both issues, focusing on exercises that increase flexibility and strength in the back and thighs. We will also re-evaluate potential contributing factors to his fatigue recent blood assessments for thyroid function and other markers of muscle health. The goal is to alleviate pain, improve mobility, and address fatigue. Enhancing exercise tolerance with low-impact activities is encouraged, taking into account any response to therapy and adjustments for fatigue. This note was constructed using voice recognition software. While every effort has been made to ensure accuracy and printing services coordinator, still areas may have been included sometimes these areas may affect the content or meeting of the given symptoms. Total time spent caring for the patient today was 20 minutes. This includes time spent before the visit reviewing the chart, time spent during the visit, and time spent after the visit and documentation. Patient was informed and verbally consented to the use of an ambient scribe for clinic note documentation during this visit. Orders: Orders Magnesium 02/02/25 M6. - Other specified disorders of muscle Free T4 (Free Thyroxine) 02/02/25 - Other specified disorders of muscle, Z00.00 - Encounter for general adult medical examination without abnormal findings TSH reflex Free T4 02/02/25. - Other specified disorders of muscle, Z00.00 - Encounter for general adult medical examination without abnormal findings Erythrocyte Sedimentation Rate 02/02/25. - Other specified disorders of muscle C Reactive Protein 02/02/25 M6. - Other specified disorders of muscle PT Evaluation and Treatment 01/31/25 M54.50 - Low back pain, unspecified, M79.10 - Myalgia, unspecified site
--- OUTSIDE RECORDS SUMMARY | 2025-02-02 08:30 | XMS_ITS ---
Author Organization [facility] Address [address] [facility] [place] [address] Care Team Providers Care Wax Engraver Name Role Phone Maik AZUL, [place] Primary Care Provider Grzegorz Love [phone] REASON FOR VISIT Omeprazole Rx Medications Medication SIG (Take, Route, Fr equency, Duration) Notes Start Date End Date Status Omeprazole 20 MG TAKE 1 CAPSULE TWICE DAILY Orally Twice a day for 90 days Active Encounters Encounter Location Date Provider Diagnosis [facility] [address] [place] [address] 01/20/2025 Grzegorz Bhatia Plan Of Treatment Medication Medication Name Sig Start Date Stop Date Notes Omeprazole 20 MG TAKE 1 CAPSULE TWICE DAILY Orally Twice a day for 90 days Progress Notes * CARO CASTAÑEDA SDOB: [birth year] (84 yo M)Acc No.[id number]:01/20/2025 Patient:?CARO CASTAÑEDA :1940???Age:84 Y???Sex:Male Address:[place], [address] * Refills? Refill Omeprazole Capsule Delayed Release, 20 MG, Orally, 180, TAKE 1 CAPSULE TWICE DAILY, Twice a day, 90 days, Refills=3 * true * Date:? Generated for Lowell prabhakar/Gage/eTransmitting on:?02/02/2025 08:30 AM EDT
[2025-02-02 08:31] VITALS: BP 130/62; O2SAT 98; BMI 23.9
== END 2025-02-02 09:05 | disposition home or self-care (01) ==
LOC: HO.HMCH 08:23
PROVIDERS: PCP Internal Medicine
DX: M54.50 Low back pain, unspecified (principal); M62.89 Other specified disorders of muscle

== ENCOUNTER → 2025-02-02 08:22 | Outpatient (BNVA) | payer MEDICARE, SELFPAY | PROVIDERS: PCP Internal Medicine | DX: M54.50 Low back pain, unspecified (principal); M62.89 Other specified disorders of muscle | CPT/HCPCS: 99212 ==

== ENCOUNTER 2025-02-05 10:04 | Outpatient (REF) | payer MEDICARE, SELFPAY ==
--- OUTSIDE RECORDS SUMMARY | 2025-02-05 10:06 | XMS_ITS ---
Author Organization [facility] Address [address] [place] [address] Care Team Providers Care Workers Compensation Consultant Name Role Phone Maik AZUL, [place] Primary Care Provider Grzegorz Love [phone] REASON FOR VISIT Omeprazole Rx Medications Medication SIG (Take, Route, Fr equency, Duration) Notes Start Date End Date Status Omeprazole 20 MG TAKE 1 CAPSULE TWICE DAILY Orally Twice a day for 90 days Active Encounters Encounter Location Date Provider Diagnosis [facility] [address] [place] [address] 01/20/2025 Grzegorz Bhatia Plan Of Treatment Medication Medication Name Sig Start Date Stop Date Notes Omeprazole 20 MG TAKE 1 CAPSULE TWICE DAILY Orally Twice a day for 90 days Progress Notes * CARO CASTAÑEDA SDOB: [birth year] (84 yo M)Acc No.[id number]:01/20/2025 Patient:?CARO CASTAÑEDA :1940???Age:84 Y???Sex:Male Address:[place], [address] * Refills? Refill Omeprazole Capsule Delayed Release, 20 MG, Orally, 180, TAKE 1 CAPSULE TWICE DAILY, Twice a day, 90 days, Refills=3 * true * Date:? Generated for Lowell prabhakar/Gage/eTransmitting on:?02/05/2025 10:06 AM EDT
[2025-02-05 11:15] LABS: C Reactive Protein < 0.10 mg/dL (< or = 0.50)
[2025-02-05 11:26] LABS: Erythrocyte Sedimentation Rate 5 MM/HR (0-15)
[2025-02-05 11:29] LABS: Free T4 (Free Thyroxine) 1.16 ng/dL (0.71-1.85); TSH reflex Free T4 2.21 uIU/mL (0.32-4.0)
== END 2025-02-05 10:05 | disposition home or self-care (01) ==
LOC: HO.LAB 10:04
DX: Z00.00 Encounter for general adult medical examination without abnormal findings (principal); M62.89 Other specified disorders of muscle
CPT/HCPCS: 36415; 83735; 84439; 84443; 85652; 86140

== ENCOUNTER 2025-03-29 12:40 | Outpatient (AMB) | payer MEDICARE, SELFPAY ==
--- NOTE | 2025-03-29 12:41 | MHC.PC.OV ---
Vital Signs 03/29/25 12:42 Height 5 ft 10 in Weight 164 lb 8 oz BMI 23.6 BP 110/80 Blood Pressure Location Lt brachial Position Sitting Pulse 53 Pulse Source Pulse Oximeter Pulse Oximetry (%) 98 Oxygen Delivery Method Room Air Intake Visit Reasons: follow up Software Integration Developer Required: No Accompanied by: Self / Same As Patient Allergies No Known Allergies Allergy (Mild, Verified 03/29/25 12:56) N/A Medication List - Last Reconciled 03/29/25 by Chevy Pleitez MD arm brace (Wrist Brace) COMFORT FORM WRIST, rt, M finasteride 5 mg PO DAILY 90 days omeprazole 40 mg PO DAILY propranolol ER 60 mg PO DAILY simvastatin 20 mg PO BEDTIME tamsulosin 0.8 mg (2 x 0.4 mg) PO DAILY 90 days Tobacco use date assessed: 03/29/25 Fall risk assessment: 1 Fall in past year Last assessed Fall Risk: 03/29/25 Dental Screening Dental Screen Date: 03/29/25 Did you have a dental visit in the last 12 months?: Yes Did you have a dental problem in the last 6 months where you did not have access to dental care?: No Was dental information given to patient?: Patient has dentist HPI follow up HPI Details Patient comes in today for further discussion/evaluation of his recurrent bilateral lower extremity symptoms States that his legs still feel weak and his balance is not good when he is wallking and he often has to stop and rest after walking for 10 to 15 minutes due to his increasing low back pain Reports that he has chronic low back pain and spinal stenosis and is concerned that his back problems have gotten worse and is now impacting his mobility He is now going to PT but states that PT only seems to help with his low back pain but has not done much with regards to improving his balance and mobility Notes that his legs swell up slightly at times but does not think that this is what is limiting his ability to walk He denies any leg pains or symptoms of claudication Denies any urinary or bowel problems lately He denies any chest pains or increased SOB PFSH Medical History Multiple premature ventricular complexes GERD (gastroesophageal reflux disease) Pure hypercholesterolemia Groin pain Obstructive and reflux uropathy Wrist tendonitis Cardiac pacemaker Surgical History History of colonoscopy History of surgery Trigger finger History of tonsillectomy H/O arthroscopy of right knee History of appendectomy Family History Father Cancer Mother Cancer Social History Housing: House Alcohol intake: current Alcohol intake frequency: holidays/special occasions only Patient Tobacco Use Status: Never used Tobacco e-Cigarette/Vaping Use: Never Used Second Hand Smoke Exposure: No service: Yes 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 1. Little interest or pleasure in doing things: not at all 2. Feeling down, depressed, or hopeless: not at all 3. Trouble falling or staying asleep, or sleeping too much: nearly every day 4. Feeling tired or having little energy: nearly every day 5. Poor appetite or overeating: not at all 6. Feeling bad about yourself - or that you are a failure or have let yourself or your family down: not at all 7. Trouble concentrating on things, such as reading the newspaper or watching television: not at all 8. Moving or speaking so slowly that other people could have noticed. Or the opposite - being so fidgety or restless that you have been moving around a lot more than usual: not at all 9. Thoughts that you would be better off or of hurting yourself in some way: not at all Total score: 6 Depression Screening Interpretation: Positive Depression Screening Follow-up: Follow-up Visit Requested Depression Screening Done: Yes 74971 - PHQ-9 Billing: Yes Source: Developed by Drs. Grzegorz Cardenas, Nikki Casas, Nam Kee and colleagues, with an educational yue from [employer]. Thrive Questionnaire Date Thrive assessed: 03/29/25 I am a: Patient What is your living situation today?: I have a steady place to live Within the past 12 months, did the food you bought not last and you didn't have the money to get more?: Never true Within the past 12 months, did you worry whether your food would run out before you got money to buy more?: Never true Do you have trouble paying for medicines?: No Do you have trouble getting transportation to medical appointments?: No Do you have trouble paying your heating and electricity bill?: No Do you have trouble taking care of your child, family member or friend?: No Do you have trouble with day-to-day activities such as bathing, preparing meals, shopping, managing finances, etc.?: No Are you currently unemployed and looking for a job?: No Are you interested in more education?: No Please select the resources that you would like help with: None Currently or been in a relationship where the following occur: No concerns reported THRIVE Score: 0 AUDIT C Alcohol Use Questionnaire (AUDIT-C) 1. How often do you have a drink containing alcohol?: Monthly or less 2. How many drinks containing alcohol do you have on a typical day when you are drinking?: 1 or 2 3. How often do you have six or more drinks on one occasion?: Never Total Score: 1 Score Reviewed/Action Taken: Yes ROSA-7 AMB Questionnaire ROSA-7 Date ROSA - 7 assessed: 03/29/25 Feeling nervous, anxious, or on edge: 0 = Not at all Not being able to stop or control worryin = Not at all Worrying too much about different things: 0 = Not at all Trouble relaxin = Not at all Being so restless that it is hard to sit still: 0 = Not at all Becoming easily annoyed or irritable: 0 = Not at all Feeling afraid as if something awful might happen: 0 = Not at all Total ROSA-7 score (0-4 normal; 5-9 mild; 10-14 moderate; 15-21 severe): 0 Source: Developed by Drs. Grzegorz Cardenas, Nikki Casas, Nam Kee and colleagues, with an educational yue from [employer]. Review of Systems Const Denies chills, Denies fatigue, Denies fever(s) and Denies headache(s) ENT Denies dysphagia, Denies dizziness, Denies otalgia, Denies headache(s), Denies neck pain, Denies odynophagia and Denies sore throat Card Denies chest pain, Reports palpitations (on and off, not associated with any other symptoms) and Denies dyspnea Resp Denies chest congestion, Denies cough and Denies dyspnea GI Denies abdominal pain, Denies constipation, Denies dysphagia, Denies heartburn, Denies diarrhea, Denies nausea, Denies odynophagia and Denies vomiting Denies difficulty urinating, Denies dysuria, Denies nocturia, Denies urinary frequency and Denies urinary incontinence Musc Reports abnormal gait (but reports increasing difficulty with balance when walking), Reports back pain (chronic, increasing - see HPI), Denies muscle weakness, Denies neck pain and Denies numbness Skin/Breast Denies rash Neuro Reports abnormal gait (but reports increasing difficulty with balance when walking), Denies dizziness, Denies headache(s), Denies numbness and Denies paresthesias Psych Denies anxiety and Denies depression Endo Denies fatigue and Reports palpitations (on and off, not associated with any other symptoms) Physical exam (Primary Care) Vital Signs: Last Vital Signs Pulse 53 03/29/25 12:42 BP 110/80 03/29/25 12:42 Pulse Ox 98 03/29/25 12:42 Oxygen Delivery Method Room Air 03/29/25 12:42 BMI result Body Mass Index 23.6 Tobacco/Smoking Status: Tobacco use Status Tobacco use date assessed 03/29/25 03/29/25 12:48 Patient Tobacco Use Status Never used Tobacco 03/29/25 12:41 e-Cigarette/Vaping Use Never Used 03/29/25 12:41 PHQ-9: PHQ-9 Score PHQ-9: Total score 6 04/05/25 12:45 Depression Screening Interpretation: Positive Depression Screening Follow-up: Follow-up Visit Requested Thrive Assessment: Date of Thrive Assessment Date Thrive assessed 03/29/25 03/29/25 12:48 Currently or been in a relationship where the following occur: No concerns reported Const General: no acute distress and alert HENMT Throat: Yes posterior oropharynx normal and Yes tonsils normal (no TP congestion noted) Neck Neck: Yes supple and No lymphadenopathy Thyroid: Thyroid normal Resp Auscultation: clear to auscultation bilaterally, no rales and no wheezes Cardio Rate: regular rate Rhythm: regular rhythm Heart sounds: no murmurs GI Palpation (GI): Soft to palpation and nontender Auscultation: normal bowel sounds General: Yes no CVA tenderness Back/Spine/Pelvis Back: no CVA tenderness Thoracic/Lumbar Spine: lumbar spinal tenderness Skin Rashes: no rashes Extrem General: Yes no clubbing, cyanosis or edema and Yes no calf tenderness Coding Level of Care Code Est Pt Level 4 (10452) Diagnoses Lumbar disc herniation M51.26 Additional Codes PHQ-9 - 74639 - PHQ-9 Billing: Yes ([id number]) Assessment & Plan Assessment & Plan (1) Lumbar disc herniation: Code(s): M51.26 - Other intervertebral disc displacement, lumbar region Category: Medical Plan: Will send patient for lumbar spine CT DONALD for further evaluation - (+) Hx of L5-S1 disc herniation on his lumbar spine CT done back in 2005 Patient is unable to go for an MRI due to his cardiac pacemaker Advised that if his lumbar spine CT does not help answer or address his symptoms, then EMG and NCV may be needed for further evaluation He will continue with physical therapy for now as it appears to be helping with his low back pain Plan Follow up in 4 months Orders: Orders Basic Metabolic Panel 03/31/25 R29.898 - Other symptoms and signs involving the musculoskeletal system, M48.061 - Spinal stenosis, lumbar region without neurogenic claudication CT lumbar spine wo IV con 04/05/25 M51.26 - Other intervertebral disc displacement, lumbar region, M48.061 - Spinal stenosis, lumbar region without neurogenic claudication, R29.898 - Other symptoms and signs involving the musculoskeletal system
[2025-03-29 12:42] VITALS: BP 110/80; PULSE 53; O2SAT 98; BMI 23.6
--- OUTSIDE RECORDS SUMMARY | 2025-03-29 13:25 | XMS_ITS | Patient Health Record ---
Author Organization [facility] [place] Address [address] [facility] [place] [address] Care Team Providers Care Assembler Brazer Name Role Phone Maik AZUL, [place] Primary Care Provider Carlie Jj Unavailable [phone] Calvin Cartagena Unavailable [phone] Sandoval Palacio Unavailable [phone] Allergies No Known Allergies Reason For Referral No Information Medications Medication SIG (Take, Route, Frequency, Duration) Notes Start Date End Date Status Simvastatin 20 MG 1 tablet Orally Once a day Active Omeprazole 20 MG 1 capsule 30 minutes before morning meal Orally Once a day; Duration: 30 day(s) Active PreserVision/Lutein Active Propranolol HCl 60 MG 1 tablet Orally Tw ice a day; Duration: 30 day(s) Active Finasteride Active Voltaren 1 % as directed Externally Active ICaps Not-Taking Tamsulosin HCl 0.4 MG 1 capsule Orally O nce a day Active Physical Therapy . . . 2-3x/week; Durat ion: 3-4 weeks 01/06/2019 Not-Taking Immunizations Vaccine Route Administration [...] primary osteoarthritis of the ankle and/or foot (170717139) Primary osteoarthritis, left ankle and foot (M19.072) Active confirmed Problem Onychomycosis (012286576) Onychomycosis (B35.1) Active confirmed Problem Localized, primary osteoarthritis of the ankle and/or foot (200106859) Degenerative arthritis of toe joint, right (M19.071) Active confirmed Vital Signs Blood pressure diastolic 65 mm Hg 01/13/2025 Height 5 ft 10 in in 01/13/2025 Blood pressure systolic 120 mm Hg 01/13/2025 Weight 168 lbs 01/13/2025 BMI 24.1 kg/m2 01/13/2025 Procedures Procedure Date Ordered Date Performed Result Body Sit e 04501-YXEZGRP NAIL, 6 OR MORE 10/13/2024 N/A 14119-[id number] NAIL, 6 OR MORE 01/13/2025 N/A Encounters Encounter Location Date Provider Diagnosis [address] [address] 04/05/2024 Calvin[facility] Tinea unguium B35.1 ; Pain in right toe(s) M79.674 ; Pain in left toe(s) M79.675 ; Primary osteoarthritis, left ankle and foot M19.072 ; Plantar fascial fibromatosis M72.2 ; Localized edema R60.0 ; Ingrowing nail L60.0 and Degenerative arthritis of toe joint, right M19.071 [facility] [address] [place] [address] 07/07/2024 Carlie Ridley Tinea unguium B35.1 ; Pain in right toe(s) M79.674 and Pain in left toe(s) M79.675 [facility] [address] [address] 10/13/2024 Sandoval Palacio Pain in right toe(s) M79.674 ; Onychomycosis B35.1 and Pain in left toe(s) M79.675 [facility] [address] [address] 01/13/2025 Carlie Ridley Pain in right toe(s) M79.674 ; Onychomycosis B35.1 and Pain in left toe(s) M79.675 [facility] [address] [address] 10/04/2024 Carlie Ridley Assessments Encounter Date Diagnosis [...] Treatment Pending Test Test Name Order Date [id number] NAIL, 6 OR MORE 10/13/2024 [id number] NAIL, 6 OR MORE 01/13/202522221, J0702- INJECT or DRAIN, JOINT/BUR SA 02/03/201958392, J0702- INJECT or DRAIN, JOINT/BUR SA 02/17/2019 Next Appt Details Provider Name:Carlie noguera, 05/12/2025 11:00:00 AM, [address] [place], [address], Insurance Providers Payer Name Payer Address Payer Phone Subscriber Number Group Number Insured Name Patient Relationship to Insured Coverage Start Date Coverage End Date Medicare National Govt [employer] [address] [place] [address] [id number] Candido Liang Self - patient is the insured [employer] Blue Shield [address] [place] [address] [phone] [id number] Candido Liang Self - patient is the insured Medical (General) History Medical History History ICD Code Hypercholesterolemia Benign prostatic hyperplasia (BPH) Arthritis Back,Hip,and Knee pain Cataracts Sciatica Measles Chicken pox Pacemaker Cholesterol Hiatal hernia Macular degeneration Reflux ( GERD) Surgical History Surgery Date(Month/Year) Orchiopexy thyroid nodule removal 1989' appendectomy 1949' right knee arthroscopy cardiac pacemeker 1973 tonsillectomy trigger finger release colonoscopy endoscopy orchcodexy 1950 skin cancer removed from nose 12/2024 Hospitalization History Reason Date(Month/Year) pneumonia, neuro virus 09/25
--- OUTSIDE RECORDS SUMMARY | 2025-03-29 13:25 | XMS_ITS | Patient Health Record ---
Author Organization [facility] Address [address] [place] [address] Care Team Providers Care Naval Aircrewman Helicopter Name Role Phone Maik AZUL, [place] Primary Care Provider Grzegorz Love [phone] Reason For Referral No Information Medications Medication SIG (Take, Route, Fr equency, Duration) Notes Start Date End Date Status Tamsulosin HCl 0.4 MG TAKE 1 CAPSULE BY MOUTH EVERY DAY Oral twice a day Active ICaps 1 1 capsule Orally twice a day Active Omeprazole 20 MG TAKE 1 CAPSULE TWICE DAILY Orally Twice a day for 90 days A ctive Gas Relief 80 MG 1 tablet after meals and at bedtime as needed Orally Four times a day Active Simvastatin 40 MG 1 tablet in the even ing Orally Once a day Active Immunizations Vaccine Route Administration Date Status Comme nts Influenza Unknown 06/01/2016 Administered Influenza Unknown 05/02/2019 Administered Problems Problem Type SNOMED Code ICD Code Onset Dates Problem Status W/U Status Risk Notes Problem 838435181 Abdominal bloati ng (R14.0) Active confirmed Problem 210933596 Abdominal disten roxanna (gaseous) (R14.0) Active confirmed Problem 289816536 Early satiety (R68.81) Active confirmed Problem 471107013 Gastroesophageal reflux disease without esophagitis (K21.9) Active confirmed Problem 889937576 Abnormal CT scan , stomach (R93.3) Active confirmed Problem 968893542 Abdominal pain, generalized (R10.84) Active confirmed Encounters Encounter Location Date Provider Diagnosis [facility] [address] [facility] [place] [address] 01/20/2025 Grzegorz Bhatia [facility] [address] [place] [address] 01/20/2025 Grzegorz Bhatia Plan Of Treatment Future Test Test Name Order Date UPPER GI ENDOSCOPY 09/24/2016 Insurance Providers Payer Name Payer Address Payer Phone Subscriber Number Group Number Insured Name Patient Relationship to Insured Coverage Start Date Coverage End Date MEDICARE OF [place] [address] [place] [address] [id number] MADDYAMMONAN Self - patient is the insured MEDEX ATTN CLAIMS [address] [place] [address] [id number] CARO CASTAÑEDA Self - patient is the insured Medical (General) History Medical History History ICD Code Denies [place],DM,CVA,Lung disease,renal dise ase Hyperlipidemia Pacemaker--age 34--replaced in [...]
--- OUTSIDE RECORDS SUMMARY | 2025-03-29 13:25 | XMS_ITS | Clinical Summary ---
Author Organization [address] [place] [address] Address [address] [place] [address] Phone Care Team Providers Care Product Inspection Supervisor Name Role Phone Chevy Pleitez MD Primary Care Provider [phone] Allergies No known active allergies Medications finasteride [...] function. Continue propranolol. Sprain of neck 01/09/2010 Social History Tobacco Use Types Packs/Day Years [...] Description 04/20/2025 9:30 AM EDT Ancillary Procedure [facility] Card[facility] [address] [place] [address] 08/09/2025 1:30 PM EST Office Visit [facility] [address] [place] [address] Randal Cortes MD [address] [place] [address] Health Maintenance Due Date Last Done Comments RSV Immunization Adult Patients (1 - 1-dose 75+ series) 2013 Cholesterol Screening (Lipid Panel) 08/10/2022 Falls Risk Assessment 08/10/2022 Medicare Annual Wellness Visit 08/10/2022 Social Influencers of Health Screening 08/10/2022 Pneumococcal Vaccine: 50+ Years (2 of 2 - PPSV23) 09/04/2022 09/04/2021 Depression Screening 09/01/2024 COVID-19 Vaccine ( season) 2024 05/01/2024, 05/24/2023, 12/26/2022, Additional history exists Influenza Vaccine (#1) 2025 , 05/10/2023, 05/22/2022, Additional history exists DTaP,Tdap,and Td Vaccines (2 - Td or Tdap) 03/30/2028 03/30/2018 Zoster Vaccines Completed 08/21/2018, 05/15/2018 HIB Vaccines Aged Out No longer eligi [...] age to complete this topic Insurance MEDICARE [facility] Care Teams Product Inspection Supervisor Relationship Specialty Start Date End Date Chevy Pleitez MD [address] [place] [address] [address] [place], [place] PCP - General Internal Medicine 08/05/12
== END 2025-03-29 13:21 | disposition home or self-care (01) ==
LOC: HO.HMCH 12:40
PROVIDERS: Visit Provider Internal Medicine
DX: M51.26 Other intervertebral disc displacement, lumbar region (principal)

== ENCOUNTER → 2025-03-29 12:40 | Outpatient (BNVA) | payer MEDICARE, SELFPAY | PROVIDERS: Visit Provider Internal Medicine | DX: M51.26 Other intervertebral disc displacement, lumbar region (principal) | CPT/HCPCS: 96127; 99212 ==

== ENCOUNTER 2025-03-31 09:57 | Outpatient (REF) | payer MEDICARE, SELFPAY ==
--- OUTSIDE RECORDS SUMMARY | 2025-03-31 10:32 | XMS_ITS | Clinical Summary ---
Author Organization [address] [place] [address] Address [address] [place] [address] Phone Care Team Providers Care Buyer Assistant Name Role Phone Chevy Pleitez MD Primary Care Provider [phone] Allergies No known active allergies Medications finasteride [...] Assessment & Plan (08/31/2024 9:59 AM EST): Yunoir is doing quite well with a normally [...] Description 04/20/2025 9:30 AM EDT Ancillary Procedure [facility] Card[facility] [address] [place] [address] 08/09/2025 1:30 PM EST Office Visit [facility] [address] [place] [address] Randal Cortes MD [address] [place] [address] Health Maintenance Due Date Last Done Comments [...] age to complete this topic Insurance MEDICARE [facility] Care Teams Buyer Assistant Relationship Specialty Start Date End Date Chevy Pleitez MD [address] [place] [address] [address] [place], [place] PCP - General Internal Medicine 08/05/12
--- OUTSIDE RECORDS SUMMARY | 2025-03-31 10:33 | XMS_ITS | Patient Health Record ---
Author Organization [facility] [place] Address [address] [facility] [place] [address] Care Team Providers Care Industrial Relations Director Name Role Phone Maik AZUL, [place] Primary Care Provider Carlie Jj Unavailable [phone] Calvin Cartagena Unavailable [phone] Sandoval Palacio Unavailable [phone] Allergies No Known Allergies Reason For Referral [...] primary osteoarthritis of the ankle and/or foot (618594100) Primary osteoarthritis, left ankle and foot (M19.072) Active confirmed Problem Onychomycosis (864155829) Onychomycosis (B35.1) Active confirmed Problem Localized, primary osteoarthritis of the ankle and/or foot (113311920) Degenerative arthritis of toe joint, right (M19.071) Active confirmed Vital Signs Blood pressure diastolic 65 mm Hg 01/13/2025 Height 5 ft 10 in in 01/13/2025 Blood pressure systolic 120 mm Hg 01/13/2025 Weight 168 lbs 01/13/2025 BMI 24.1 kg/m2 01/13/2025 Procedures Procedure Date Ordered Date Performed Result Body Sit e 71532-WYJBBCY NAIL, 6 OR MORE 10/13/2024 N/A 39627-[id number] NAIL, 6 OR MORE 01/13/2025 N/A Encounters Encounter Location Date Provider Diagnosis [address] [address] 04/05/2024 CalvinFranco Tinea unguium B35.1 ; Pain in right toe(s) M79.674 ; Pain in left toe(s) M79.675 ; Primary osteoarthritis, left ankle and foot M19.072 ; Plantar fascial fibromatosis M72.2 ; Localized edema R60.0 ; Ingrowing nail L60.0 and Degenerative arthritis of toe joint, right M19.071 [facility] [address] [place] [address] 07/07/2024 Carlie Ridley Tinea unguium B35.1 ; Pain in right toe(s) M79.674 and Pain in left toe(s) M79.675 [facility] [address] [address] 10/13/2024 Sandoval Palacio Pain in right toe(s) M79.674 ; Onychomycosis B35.1 and Pain in left toe(s) M79.675 [facility] [address] [address] 01/13/2025 Carlie Ridley Pain in right toe(s) M79.674 ; Onychomycosis B35.1 and Pain in left toe(s) M79.675 [facility] [address] [address] 10/04/2024 Carlie Ridley Assessments Encounter Date Diagnosis [...] Treatment Pending Test Test Name Order Date [id number] NAIL, 6 OR MORE 10/13/2024 78048-[id number] NAIL, 6 OR MORE 01/13/202592751, J0702- INJECT or DRAIN, JOINT/BUR SA 02/03/201965361, J0702- INJECT or DRAIN, JOINT/BUR SA 02/17/2019 Next Appt Details Provider Name:Carlie noguera, 05/12/2025 11:00:00 AM, [address] [place], [address], Insurance Providers Payer Name Payer Address Payer Phone Subscriber Number Group Number Insured Name Patient Relationship to Insured Coverage Start Date Coverage End Date Medicare National Govt [employer] [address] [place] [address] [id number] Candido Liang Self - patient is the insured Med[employer] Blue Shield [address] [place] [address] [id number] Candido Liang Self - patient is the [...]
--- OUTSIDE RECORDS SUMMARY | 2025-03-31 10:33 | XMS_ITS | Patient Health Record ---
Author Organization [facility] Address [address] [place] [facility] [place] [address] Care Team Providers Care Clinical Project Leader Name Role Phone Maik AZUL, [place] Primary Care Provider Grzegorz Love [phone] Reason For Referral No Information Medications Medication [...] Problem Status W/U Status Risk Notes Problem [id number] Abdominal bloati ng (R14.0) Active confirmed Problem 779711881 Abdominal disten roxanna (gaseous) (R14.0) Active confirmed Problem 859757542 Early satiety (R68.81) Active confirmed Problem 983063081 Gastroesophageal reflux disease without esophagitis (K21.9) Active confirmed Problem 390091010 Abnormal CT scan , stomach (R93.3) Active confirmed Problem 635379484 Abdominal pain, generalized (R10.84) Active confirmed Encounters Encounter Location Date Provider Diagnosis [facility] [address] [facility] [place] [address] 01/20/2025 Grzegorz Bhatia [facility] [address] [place] [address] 01/20/2025 Grzegorz Bhatia Plan Of Treatment Future Test Test Name Order Date UPPER GI ENDOSCOPY 09/24/2016 Insurance Providers Payer Name Payer Address Payer Phone Subscriber Number Group Number Insured Name Patient Relationship to Insured Coverage Start Date Coverage End Date MEDICARE OF [place] [address] [place] [address] [id number] MADDYAMMONAN Self - patient is the insured MEDEX ATTN CLAIMS [address] [place] [address] [id number] CARO CASTAÑEDA Self - patient is the insured Medical (General) History Medical History History ICD Code Denies GA,DM,CVA,Lung disease,renal dise ase Hyperlipidemia Pacemaker--age 34--replaced in [...]
[2025-03-31 11:41] LABS: Anion Gap 12 (12-20); Blood Urea Nitrogen 23 mg/dL (9-16); Calcium 9.1 mg/dL (8.4-10.2); Carbon Dioxide 26 mmol/L (22-29); Chloride 105 mmol/L (96-108); Estimated Glomerular Filt Rate 50; Potassium 4.2 mmol/L (3.3-5.1); Sodium 139 mmol/L (135-145)
== END 2025-03-31 09:58 | disposition home or self-care (01) ==
LOC: HO.10HDL 09:57
PROVIDERS: Visit Provider Internal Medicine
DX: R29.898 Other symptoms and signs involving the musculoskeletal system (principal); M48.061 Spinal stenosis, lumbar region without neurogenic claudication
CPT/HCPCS: 36415; 80048

== ENCOUNTER 2025-04-05 07:53 | Outpatient (REF) | payer MEDICARE, SELFPAY ==
--- NOTE | ~2025-04-05 | CT_ITS ---
EXAMINATION: CT LUMBAR SPINE WITHOUT CONTRAST CLINICAL INFORMATION: Other intervertebral disc displacement, lumbar region. COMPARISON: None available. Correlation made with CT abdomen and pelvis 12/10/2019. TECHNIQUE: Spiral CT imaging of the lumbar spine performed in axial plane without contrast. Multiplanar reformatted images were constructed from the axial data set. This CT examination was performed using dose optimization techniques as appropriate, variously including the following: *Automated exposure control *Adjustment of mA and/or kV according to patient size (this includes techniques or standardized protocols for targeted exams where dose is matched to indication/reason for exam; i.e. extremities or head) *Use of iterative reconstruction technique FINDINGS: CORONAL ALIGNMENT: -Normal. SAGITTAL ALIGNMENT: -Normal lordosis. -No subluxations. LUMBOSACRAL JUNCTION: -Normal. There are 5 ihl-scg-gnyqxic lumbar-type vertebral bodies. VERTEBRAL BODIES/BONE: -There are no fracture, compression deformities, or suspicious bone lesions. -There is no malalignment. -There is normal facet alignment bilaterally, with multilevel degenerative facet changes most notable spanning L2-S1. DISCS: -Moderate diffuse disc degeneration present, most significant at L4-5 and L5-S1 where there is calcification of the disc spaces. -There are ventral right flowing disc osteophytes spanning T11-L2. SPINAL CANAL: -No abnormal developmental findings. AXIAL DISC SPACE IMAGES: (Limited allowing for CT modality): T12-L1: There is no significant central canal or neural foraminal narrowing. L1-L2: There is a shallow concentric disc bulge extending into the right greater than left foraminal zones. There are mild facet degenerative changes. There is posterior ligamentous thickening and calcification. There is mild central canal narrowing, mild to moderate right subarticular recess narrowing, and mild to moderate right neural foraminal narrowing. L2-L3: There is a diffuse concentric disc osteophytic ridge complex extending into both foraminal zones. There are moderate hypertrophic degenerative facet changes bilaterally with posterior ligamentous thickening and calcification. There is mild to moderate central canal narrowing, and moderate bilateral subarticular recess narrowing. There is mild to moderate bilateral neural foraminal narrowing. L3-L4: There is a concentric disc osteophytic ridge complex extending into both foraminal zones. There are moderate hypertrophic degenerative facet changes bilaterally with posterior ligamentous thickening/calcification. There is mild to moderate central canal stenosis, moderate bilateral subarticular recess stenosis, and moderate bilateral neural foraminal stenosis. L4-L5: There is a concentric disc osteophytic ridge complex, with a superimposed left paracentral disc protrusion. There are moderate to severe hypertrophic degenerative facet changes bilaterally with posterior ligamentous thickening and calcification. Findings are resulting in moderate central canal stenosis, at least moderate bilateral subarticular recess stenosis, and moderate to severe right greater than left neural foraminal stenosis. L5-S1: There is a shallow disc osteophytic ridge complex with a superimposed left lateral and foraminal disc osteophytic protrusion. This is impinging upon the left lateral recess, contacting and impinging the traversing left S1 nerve root. This is also contacting but not impinging the exiting left L5 nerve root. There is mild central canal stenosis. IMAGED SI JOINTS: -Moderate degenerative changes bilaterally with bridging bilateral osteophytes. PARAVERTEBRAL AND INCLUDED EXTRASPINAL SOFT TISSUES: -There are esophageal varices present. -Pacer leads noted within the heart. -There is a stable 1.5 cm left adrenal mass. -There are similar numerous bilateral hyperattenuating and low attenuating cysts in the kidneys, the largest is in the left inferior kidney measuring 2.9 cm in diameter. These have been previously classified as benign. There is one in the anterior superior left kidney measuring 1.8 cm, significantly larger than on previous imaging. Follow-up ultrasound recommended. -There is a 3 mm nonobstructing calculus in the superior pole of the right kidney. -There is no aortic aneurysm. There is moderate to heavy calcification of the aorta and iliac vessels. -There is sigmoid diverticulosis. CT/CT lumbar spine wo IV con IMPRESSION: 1. Multilevel moderate spondylosis of the lumbar spine as detailed above. Please see the body the report for details on individual disc levels. There are no acute bony abnormalities or compression deformities present. No high-grade central canal stenosis is present. There is a left foraminal disc osteophytic extrusion at L5-S1 which is compressing the traversing left S1 nerve root. 2. Esophageal varices are present. 3. Similar low-lying hypoattenuating cysts within the kidneys bilaterally. At least one in left kidney anterior upper pole measuring 1.8 cm is larger than on prior CT exam. Would recommend follow-up renal ultrasound to ensure stability and no solid lesion. Nonobstructing 3 mm calculus right kidney. 4. Stable 1.5 cm left adrenal mass, benign. 5. Sigmoid diverticulosis. Electronically signed by: Joshua Mejia MD 04/05/2025 08:49 AM EDT
--- OUTSIDE RECORDS SUMMARY | 2025-04-05 07:55 | XMS_ITS | Clinical Summary ---
Author Organization [address] [place] [address] Address [address] [place] [address] Phone Care Team Providers Care Test Puller Name Role Phone Chevy Pleitez MD Primary Care Provider [phone] Allergies No known active allergies Medications finasteride [...] Description 04/20/2025 9:30 AM EDT Ancillary Procedure [facility] [address] [place] [address] 08/09/2025 1:30 PM EST Office Visit [facility] [address] [place] [address] Randal Cortes MD [address] [place] [address] Health Maintenance Due Date Last Done Comments [...] age to complete this topic Insurance MEDICARE [facility] Care Teams Test Puller Relationship Specialty Start Date End Date Chevy Pleitez MD [address] [place] [address] [address] [place], [place] PCP - General Internal Medicine 08/05/12
--- OUTSIDE RECORDS SUMMARY | 2025-04-05 07:55 | XMS_ITS | Patient Health Record ---
Author Organization [facility] Address [address] [facility] [place] [address] Care Team Providers Care Woods Manager Name Role Phone Maik AZUL, [place] Primary Care Provider Grzegorz Love [phone] Reason For Referral No Information Medications Medication [...] Problem Status W/U Status Risk Notes Problem [id number] Abdominal bloati ng (R14.0) Active confirmed Problem 479144076 Abdominal disten roxanna (gaseous) (R14.0) Active confirmed Problem 590398540 Early satiety (R68.81) Active confirmed Problem 883460165 Gastroesophageal reflux disease without esophagitis (K21.9) Active confirmed Problem 408077918 Abnormal CT scan , stomach (R93.3) Active confirmed Problem 540144274 Abdominal pain, generalized (R10.84) Active confirmed Encounters Encounter Location Date Provider Diagnosis [facility] [address] [facility] [place] [address] 01/20/[address] [facility] [address] [place] [address] 01/20/2025 Grzegorz Bhatia Plan Of Treatment Future Test Test Name Order Date UPPER GI ENDOSCOPY 09/24/2016 Insurance Providers Payer Name Payer Address Payer Phone Subscriber Number Group Number Insured Name Patient Relationship to Insured Coverage Start Date Coverage End Date MEDICARE OF [place] [address] [place] [address] [id number] MADDYAMMONAN Self - patient is the insured MEDEX ATTN CLAIMS [address] [place] [address] [id number] CARO CASTAÑEDA Self - patient is the insured Medical (General) History Medical History History ICD Code Denies ME,DM,CVA,Lung disease,renal dise ase Hyperlipidemia Pacemaker--age 34--replaced in [...]
--- OUTSIDE RECORDS SUMMARY | 2025-04-05 07:55 | XMS_ITS | Patient Health Record ---
Author Organization [facility] [place] Address [address] [facility] [place] [address] Care Team Providers Care River Guide Name Role Phone Maik AZUL, [place] Primary Care Provider Carlie Jj Unavailable [phone] Calvin Cartagena Unavailable [phone] Sandoval Palacio Unavailable [phone] Allergies No Known Allergies Reason For Referral [...] primary osteoarthritis of the ankle and/or foot (785768839) Primary osteoarthritis, left ankle and foot (M19.072) Active confirmed Problem Onychomycosis (893455844) Onychomycosis (B35.1) Active confirmed Problem Localized, primary osteoarthritis of the ankle and/or foot (507831044) Degenerative arthritis of toe joint, right (M19.071) Active confirmed Vital Signs Blood pressure diastolic 65 mm Hg 01/13/2025 Height 5 ft 10 in in 01/13/2025 Blood pressure systolic 120 mm Hg 01/13/2025 Weight 168 lbs 01/13/2025 BMI 24.1 kg/m2 01/13/2025 Procedures Procedure Date Ordered Date Performed Result Body Sit e [id number] NAIL, 6 OR MORE 10/13/2024 N/A [id number] NAIL, 6 OR MORE 01/13/2025 N/A Encounters Encounter Location Date Provider Diagnosis [address] [address] 04/05/2024 CalvinFranco Tinea unguium B35.1 ; Pain in right toe(s) M79.674 ; Pain in left toe(s) M79.675 ; Primary osteoarthritis, left ankle and foot M19.072 ; Plantar fascial fibromatosis M72.2 ; Localized edema R60.0 ; Ingrowing nail L60.0 and Degenerative arthritis of toe joint, right M19.071 [facility] [address] [place] [address] 07/07/2024 Carlie Ridley Tinea unguium B35.1 ; Pain in right toe(s) M79.674 and Pain in left toe(s) M79.675 [facility] [address] [address] 10/13/2024 Sandoval Palacio Pain in right toe(s) M79.674 ; Onychomycosis B35.1 and Pain in left toe(s) M79.675 [facility] [address] [address] 01/13/2025 Carlie Ridley Pain in right toe(s) M79.674 ; Onychomycosis B35.1 and Pain in left toe(s) M79.675 [facility] [address] [address] 10/04/2024 Carlie Ridley Assessments Encounter Date Diagnosis [...] Treatment Pending Test Test Name Order Date [id number] NAIL, 6 OR MORE 10/13/2024 [id number] NAIL, 6 OR MORE 01/13/202568834, J0702- INJECT or DRAIN, JOINT/BUR SA 02/03/201922225, J0702- INJECT or DRAIN, JOINT/BUR SA 02/17/2019 Next Appt Details Provider Name:Carlie noguera, 05/12/2025 11:00:00 AM, [address] [place], [address], Insurance Providers Payer Name Payer Address Payer Phone Subscriber Number Group Number Insured Name Patient Relationship to Insured Coverage Start Date Coverage End Date Medicare National Govt [employer] [address] [place] [address] [id number] Candido Liang Self - patient is the insured [employer] [address] [place] [address] [phone] [id number] Candido Liang Self - patient is the [...]
== END 2025-04-05 07:54 | disposition home or self-care (01) ==
LOC: HO.CT 07:53
PROVIDERS: PCP Internal Medicine; Visit Provider Internal Medicine
DX: M51.26 Other intervertebral disc displacement, lumbar region (principal); M48.061 Spinal stenosis, lumbar region without neurogenic claudication; R29.898 Other symptoms and signs involving the musculoskeletal system
CPT/HCPCS: 72131

== ENCOUNTER → 2025-04-05 07:54 | Outpatient (BNV) | payer MEDICARE, SELFPAY | PROVIDERS: PCP Internal Medicine; Visit Provider Radiology Diagnostic Radiology | DX: M47.816 Spondylosis without myelopathy or radiculopathy, lumbar region (principal); N28.1 Cyst of kidney, acquired; D35.02 Benign neoplasm of left adrenal gland; K57.30 Diverticulosis of large intestine without perforation or abscess without bleeding; N20.0 Calculus of kidney; I00-I99 Diseases of the circulatory system | CPT/HCPCS: 72131 ==

== ENCOUNTER 2025-04-08 13:00 | Outpatient (RCR) | payer MEDICARE, SELFPAY ==
--- NOTE | 2025-02-11 16:26 | MHC.PT.EP ---
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 male who is referred to PT by Dr. Chevy Pleitez MD, with Dx of low back pain. He reports his low back pain is chronic in nature with no recent mechanism of injury. Patient impairments include pain, antalgic gait, limited lumbar ROM, weakness in glutes. Patient current functional limitations are sit to stand from deeper chairs, prolonged walking, balance concerns, lower body dressing, lifting, carrying groceries, weak/fatigued in quads. Patient will benefit from skilled PT to address aforementioned impairments and functional limitations to meet established goals. Frequency and Duration: The patient will be seen 2x/week for 4 weeks Short Term Goals: 2 weeks Patient demonstrates consistency and independence with HEP to self manage symptoms. Prison Goals: 4 weeks Patient presents with increased bilateral glute med strength 4+/5 to be able to walk for 1 mile without familiar symptoms. Patient presents with increased bilateral hip flexion strength 5/5 to be able to carry groceries without familiar symptoms. Treatment Plan: Modalities to reduce pain, spasms and effusion. Manual therapy to restore motion and function. Therapeutic exercise to improve strength and flexibility. Neuromuscular re-education for posture and balance. Therapeutic activities to return to functional activities of daily living. Electronically signed by: Loretta Horta, PT, DPT Please sign and return to therapist. Thank you for your referral.
--- NOTE | 2025-04-08 14:26 | MHC.PT.DC ---
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 He continues with radicular symptoms with increased standing or walking in bilateral quadriceps due to lumbar stenosis. We discuss terminologist management of symptoms and new printed comprehensive handout given for HEP. He agrees to discharge plan. Electronically signed by: Loretta Horta PT, DPT Please sign and return to therapist. Thank you for your referral.
== END 2025-04-08 14:27 | disposition home or self-care (01) ==
LOC: HO.PT 13:00
PROVIDERS: PCP Internal Medicine; Visit Provider Internal Medicine
DX: M54.50 Low back pain, unspecified (principal)
CPT/HCPCS: 97110; 97140; 97162; 97530

== ENCOUNTER 2025-05-20 09:22 | Outpatient (AMB) | payer MEDICARE, SELFPAY ==
[2025-05-20 09:29] VITALS: BMI 23.7
--- NOTE | 2025-05-20 09:29 | HO.SPINEOV ---
Vital Signs 05/20/25 09:29 Height 5 ft 10 in Weight 165 lb BMI 23.7 Intake Visit Reasons: spinal stenosis Intake Note: Mr. Liang is here today c/o Low back pain. Supervisor Quality Control Required: No Allergies No Known Allergies Allergy (Mild, Verified 05/20/25 09:31) N/A Physical Exam Vital Signs: BMI result Body Mass Index 23.7 Assessment & Plan Assessment & Plan (1) Lumbar stenosis with neurogenic claudication: Code(s): M48.062 - Spinal stenosis, lumbar region with neurogenic claudication Category: Medical Plan: Dear colleague Thank you for referring Candido Liang to the office today with a chief complaint of bilateral leg pain. 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 He states that he came walk for 3/4 of a miles but has to sit down 5 times during that small walk. He also can not stand for prolonged period of times after which he has to sit down. Leaning forward or sitting down alleviates his symptoms. The pain is more fatigued feeling. It is mostly in the anterior thighs, bilaterally. No numbness. The symptoms are interfering with his daily activities social life. He is unable to get out as much as he wants to. Of note, he did have a period of sciatica 20 years ago radiating down his left leg. The following conservative treatment options were tried without success , tylenol, physical therapy. PMH: Pacemaker 50 years ago for sick sinus syndrome, GERD, BPH, hypercholesterol Medications: Propranolol, simvastatin, finasteride, tamsulosin, omeprazole Allergies: NKDA Social history: . Nonsmoker. Physical Exam: Pleasant male. Height 510 weight 165 lb. He stands in his slightly flexed position. No motor or sensory deficits on neurological exam. Straight leg raise is negative. Radiological Studies: CT scan of the lumbar spine done at [facility] on 04/05/2025, shows moderate L3-4 and L4-5 central spinal stenosis. The L4-5 level shows bilateral lateral recess stenosis left, more than right with compression of the bilateral L5 nerve roots. Impression/Plan: This patient is suffering from neurogenic claudication due to L3-4 and L4-5 spinal stenosis. I offered him a lumbar decompression of the levels to address the symptoms. I described the procedure that will be done in day surgery and expected postoperative course. He will call my office if he wants to proceed. He needs to get a preoperative cardiology clearance. Thank you for allowing me to participate in your patients care. total time spent was 50 minutes in counseling ,coordination of plan, personal review of imaging, surgical decision making and subsequent plan Miguel Russ MD, PhD Spine Fellowship Trained Neurosurgeon Director, [facility] Coding Level of Care Code New Pt Level 4 (24908) Diagnoses Lumbar stenosis with neurogenic claudication M48.062
--- OUTSIDE RECORDS SUMMARY | 2025-05-20 09:57 | XMS_ITS | Clinical Summary ---
Author Organization [address] [place] [address] Address [address] [place] [address] Phone Care Team Providers Care Roller Setter Name Role Phone Chevy Pleitez MD Primary Care Provider [phone] Allergies No known active allergies Medications finasteride [...] Encounters Date Type Department Care Team Description 04/20/2025 9:30 AM EDT Ancillary Procedure [facility] - [address] [place] [address] Encounter for adjustment or management of cardiac [...] Care Team (Late st Contact Info) Description 08/09/2025 1:30 PM EST Office Visit [facility] [address] [facility] [address] [place] [address] Randal Cortes MD [address] [place] [address] [place] [address] 10/24/2025 10:30 AM EST Ancillary Procedure [facility] [address] [facility] [address] [place] [address] Health Maintenance Due Date Last Done Comments RSV Immunization Adult Patients (1 - 1-dose 75+ series) 2013 Cholesterol Screening (Lipid Panel) 08/10/2022 Falls Risk Assessment 08/10/2022 Medicare Annual Wellness Visit 08/10/2022 Social Influencers of Health Screening 08/10/2022 Pneumococcal Vaccine: 50+ Years (2 of 2 - PPSV23) 09/04/2022 09/04/2021 Depression Screening 09/01/2024 COVID-19 Vaccine ( season) 2025 05/01/2024, 05/24/2023, 12/26/2022, Additional history exists Influenza [...] CARDIAC DEVICE CHECK- IN CLINIC- [facility] Routine 04/20/2025 12:30 PM EDT Encounter for adjustment or management of cardiac device from Last 3 Months Results * CARDIAC DEVICE CHECK- IN CLINIC- [facility] (04/20/2025 12:30 PM EDT) Date Time Interrogation Session [id number] CV DEVICE CHECK Implantable Pulse Generator Coil Connector BSX CV DEVICE CHECK Implantable Pulse Generator Type IPG CV DEVICE CHECK Implantable Pulse Generator Model L100 CV DEVICE CHECK Implantable Pulse Generator Serial Number [id number] CV DEVICE CHECK Implantable Pulse Generator Implant Date [id number] CV DEVICE CHECK Battery Status Unknown CV DE VICE CHECK Lead Channel Setting Sensing Sensitivity 0.75 CV DEVICE CHECK Lead Channel Sensing Intrinsic Amplitude 13.100 CV DEVICE CHECK Lead Channel Setting Sensing Sensitivity 2.50 CV DEVICE CHECK Lead Channel Impedance Value 447 CV DEVICE CHECK Lead Channel Pacing Threshold Amplitude 1.700 CV DEVICE CHECK Lead Channel Pacing Threshold Pulse Width 0.4 CV DEVICE CHECK Lead Channel RV Pacing Threshold Date 2025-04-20 CV DEVICE CHECK Lead Channel Setting Pacing [...] 3 CV DEVICE CHECK Date of Service 2025-10-12 CV DEVICE CHECK Anatomical Region Laterality Modality Device Interroga tion 04/20/2025 Impressions 04/22/2025 8:59 AM EDT Normal In-Office: No Events * Normal Device Function * Alerts or events: None * Battery: Battery is at 47.6%, 3 years * Sensing, impedance and thresholds reviewed and tested * Presenting Rhythm: VS 50s * Heart Rate Histograms reviewed * Pacing and Detection Parameters were evaluated Narrative Procedure Note Randal Cortes MD - 04/22/2025 IMPRESSION: Normal In-Office: No Events * Normal Device Function * Alerts or events: None * Battery: Battery is at 47.6%, 3 years * Sensing, impedance and thresholds reviewed and tested * Presenting Rhythm: VS 50s * Heart Rate Histograms reviewed * Pacing and Detection Parameters were evaluated us Order Referral Cardiovascular CV IMPLANTABLE CAR DIAC DEVICE PROCEDURES Final Result from Last 3 Months Insurance MEDICARE [facility] Care Teams Roller Setter Relationship Specialty Start Date End Date Chevy Pleitez MD [address] [place] [address] [facility] [place], [place] PCP - General Internal Medicine 08/05/12
== END 2025-05-20 10:15 | disposition home or self-care (01) ==
LOC: HO.HNS 09:23
PROVIDERS: PCP Internal Medicine; Referring Provider Internal Medicine; Visit Provider Neurological Surgery
DX: M48.062 Spinal stenosis, lumbar region with neurogenic claudication (principal)
CPT/HCPCS: 99204

== ENCOUNTER → 2025-05-20 09:22 | Outpatient (BNVA) | payer MEDICARE, SELFPAY | PROVIDERS: PCP Internal Medicine; Referring Provider Internal Medicine; Visit Provider Neurological Surgery | DX: M48.062 Spinal stenosis, lumbar region with neurogenic claudication (principal) | CPT/HCPCS: 99202 ==

== ENCOUNTER 2025-06-01 13:23 | Outpatient (REF) | payer MEDICARE, SELFPAY ==
--- NOTE | ~2025-06-01 | US_ITS ---
EXAMINATION: US LEFT KIDNEY LIMITED (ONLY) CLINICAL INFORMATION: Left renal cyst.. COMPARISON: December 10, 2021 TECHNIQUE: Real-time ultrasound left kidney using grayscale technique. FINDINGS: LEFT KIDNEY: 10 x 5 x 5 cm (SAG x AP x TRV). Normal echotexture. Renal cortical thickness is normal. No hydronephrosis. There is a 4.8 cm, exophytic, thin septated, anechoic lesion, upper pole. No nodular components were flow on color Doppler interrogation. There is a 2.8 cm anechoic lesion without nodular components in the midportion. There or a 0.8 cm and 0.7 cm exophytic anechoic lesions without septations or nodular components in the midportion. Probable tiny calcification associated to the 0.7 cm lesion.. US/US renal LT IMPRESSION: Bosniak type II cysts, left kidney. No hydronephrosis. Overall similar since prior exam. Electronically signed by: Hima Wilhelm MD 06/01/2025 02:04 PM EDT
--- OUTSIDE RECORDS SUMMARY | 2025-06-01 14:35 | XMS_ITS | Clinical Summary ---
Author Organization [address] [place] [address] Address [address] [place] [address] Phone Care Team Providers Care Assistant Broker Name Role Phone Chevy Pleitez MD Primary Care Provider [phone] Allergies No known active allergies Medications finasteride [...] Assessment & Plan (08/31/2024 9:59 AM EST): Ammon is doing quite well with a normally [...] Description 04/20/2025 9:30 AM EDT Ancillary Procedure [facility] - [address] [place] [address] Encounter for adjustment or management [...] Description 08/09/2025 1:30 PM EST Office Visit [facility] - [facility] [address] [facility] [address] [place] [address] Randal Cortes MD [address] [place] [address] 10/24/2025 10:30 AM EST Ancillary Procedure [facility] [address] [facility] [address] [place] [phone] Health Maintenance Due Date Last Done Comments RSV Immunization Adult Patients (1 - 1-dose 75+ series) 2013 Cholesterol Screening (Lipid Panel) 08/10/2022 Falls Risk Assessment 08/10/2022 Medicare Annual Wellness Visit 08/10/2022 Social Influencers of Health Screening 08/10/2022 Pneumococcal Vaccine: 50+ Years (2 of 2 - PCV20 or PCV21) 09/04/2022 09/04/2021 Depression Screening 09/01/2024 COVID-19 Vaccine [...] 12:30 PM EDT) Date Time Interrogation Session [id number] CV DEVICE CHECK Implantable Pulse Generator [employer] BSX CV DEVICE CHECK Implantable Pulse Generator Type IPG CV DEVICE CHECK Implantable Pulse Generator Model L100 CV DEVICE CHECK Implantable Pulse Generator Serial Number [id number] CV DEVICE CHECK Implantable Pulse Generator Implant [...] Result from Last 3 Months Insurance MEDICARE [facility] Care Teams Assistant Broker Relationship Specialty Start Date End Date Chevy Pleitez MD [address] [place] [address] Ashley [facility] [place] PCP - General Internal Medicine 08/05/12
== END 2025-06-01 13:24 | disposition home or self-care (01) ==
LOC: HO.US 13:23
PROVIDERS: PCP Internal Medicine; Visit Provider Internal Medicine
DX: N28.1 Cyst of kidney, acquired (principal)
CPT/HCPCS: 76775

== ENCOUNTER → 2025-06-01 13:25 | Outpatient (BNV) | payer MEDICARE, SELFPAY | PROVIDERS: PCP Internal Medicine; Visit Provider Radiology Diagnostic Radiology | DX: N28.1 Cyst of kidney, acquired (principal) | CPT/HCPCS: 76775 ==

== ENCOUNTER 2025-08-17 06:00 | Day surgery (SDC) | payer MEDICARE, SELFPAY ==
--- OUTSIDE RECORDS SUMMARY | 2024-03-18 05:00 | XMS_ITS ---
Author Organization [facility] Address [address] [place] [address] Care Team Providers Care Dress Cap Maker Name Role Phone Maik AZUL, Chevy Primary Care Provider UnaCarlie Márquez Unavailable [phone] Calvin Hdz Unavailable [phone] wolff Encounters Encounter Location Date Provider Diagnosis [address] [address] 03/18/2024 Calvin Hdz Plan Of Treatment Next Appt Details Provider Name:Carlie Stevens poornima, 09/08/2025 11:00:00 AM, [address] [place] [address], [id number], Progress Notes * Candido CASTAÑEDA SDOB: [birth year] (85 yo M)Acc No.[id number]:03/18/2024 Progress Note Patient: Hattie Candido JENKINS Provider: Stiven Cartagena DPM :1940 A ge:83 Y S ex:Male Date:03/18/2024 Address:[id number] Pcp:Chevy Pleitez MD Subjective: * Chief Complaints: * [address] wolff[address] * Medical History: Objective: * Vitals: Assessment: Plan: * Treatment: * Images: * The named appointment provid er may or may not be the originator of this progress note, and it is not deemed complete until electronically signed by the appointment provider. Sign off status: Pending * Provider: Stiven Cartagena DPM Date: 0 03/18/2024 Generated for Lowell Solomon on: 09/20/2024 12:52 AM EST"
--- OUTSIDE RECORDS SUMMARY | 2024-10-06 03:45 | XMS_ITS ---
Author Organization [facility] Address [address] [place] [address] Care Team Providers Care Mechanism Inspector Name Role Phone Maik AZUL, Chevy Primary Care Provider Unava ilCarlie Linares Unavailable [phone] Encounters Encounter Location Date Provider Diagnosis [address] [address] 10/06/2024 Carlie Ridley Plan Of Treatment Next Appt Details Provider Name:Carlie Rodney noguera, 09/08/2025 11:00:00 AM, [address] [place] [address], [phone], Progress Notes * Candido CASTAÑEDA SDOB: [birth year] (85 yo M)Acc No.[id number]:10/06/2024 Progress Note Patient: Hattie Candido JENKINS Provider: Cydney Ridley DPM :1940 A ge:84 Y S ex:Male Date:10/06/2024 Address:[id number] Pcp:Chevy Pleitez MD Subjective: * Chief Complaints: * * Medical History: Objective: * Vitals: Assessment: Plan: * Treatment: * Images: * The named appointment provid er may or may not be the originator of this progress note, and it is not deemed complete until electronically signed by the appointment provider. Sign off status: Pending * Provider: Cydney Ridley DPM Date: 0 10/06/2024 Generated for Lowell prabhakar/Gage/Suhas on: 1 09/20/2024 12:52 AM EST
--- OUTSIDE RECORDS SUMMARY | 2024-10-07 05:00 | XMS_ITS ---
Author Organization [facility] Address [address] [place] [address] Care Team Providers Care Bulb Assembler Name Role Phone Maik AZUL [facility] Primary Care Provider Carlie Jj Unavailable [phone] Medications Medication SIG (Take, Route, Frequency, Duration) Notes Start Date End Date Status Tamsulosin HCl 0.4 MG 1 capsule Orally O nce a day Active Physical Therapy . . . 2-3x/week; Durat ion: 3-4 weeks 01/06/2019 Not-Taking PreserVision/Lutein Active Simvastatin 20 MG 1 tablet Orally Once a day Active Omeprazole 20 MG 1 capsule 30 minutes before morning meal Orally Once a day; Duration: 30 day(s) Active Propranolol HCl 60 MG 1 tablet Orally Tw ice a day; Duration: 30 day(s) Active Voltaren 1 % as directed Externally Active ICaps Not-Taking Finasteride Active Encounters Encounter Location Date Provider Diagnosis [address] [address] 10/07/2024 Carlie Ridley Plan Of Treatment Next Appt Details Provider Name:Carlie noguera, 09/08/2025 11:00:00 AM, [address] [place], [address], Progress Notes * Candido CASTAÑEDA SDOB: [birth year] (85 yo M)Acc No.[id number]:10/07/2024 Progress Note Patient: Candido FLOWERS Provider: Cydney Ridley DPM :1940 A ge:84 Y S ex:Male Date:10/07/2024 Address:[address] [id number] Pcp:Chevy Pleitez MD Subjective: * Chief Complaints: * * Medical History: H ypercholesterolemia, Benign prostatic hyperplasia (BPH), Arthritis, Back,Hip,and Knee pain, Cataracts, Sciatica, Measles, Chicken pox, Pacemaker, Cholesterol, Hiatal hernia, Macular degeneration, Reflux ( GERD). * Medications: T aking Voltaren 1 % Gel as directed Externally , Taking Propranolol HCl 60 MG Tablet 1 tablet Orally Twice a day , Taking Finasteride , Taking Omeprazole 20 MG Capsule Delayed Release 1 capsule 30 minutes before morning meal Orally Once a day , Taking PreserVision/Lutein , Taking Simvastatin 20 MG Tablet 1 tablet Orally Once a day , Taking Tamsulosin HCl 0.4 MG Capsule 1 capsule Orally Once a day , Not- Taking/PRN Physical Therapy . . . . 2-3x/week , Not-Taking/PRN ICaps Objective: * Vitals: Assessment: Plan: * Treatment: * Images: * The named appointment provid er may or may not be the originator of this progress note, and it is not deemed complete until electronically signed by the appointment provider. Sign off status: Pending * Provider: Cydney Ridley DPM Date: 0 10/07/2024 Generated for Lowell prabhakar/Gage/Suhas on: 09/20/2024 12:52 AM EST
--- OUTSIDE RECORDS SUMMARY | 2025-07-21 00:52 | XMS_ITS | Patient Health Record ---
Author Organization [facility] ariadne Black Address [address] [facility] [address] [place] [address] Care Team Providers Care Credit Counselor Name Role Phone Maik AZUL, Leonard Primary Care Provider Quita LuevanoakerCarlie Unavailable [phone] Sandoval Palacio Unavailable [phone] Allergies No Known Allergies Reason For Referral No Information Medications Medication SIG (Take, Route, Frequency, Duration) Notes Start Date End Date Status ICaps Not-Taking Physical Therapy . . . 2-3x/week; Durat ion: 3-4 weeks 01/06/2019 Not-Taking PreserVision/Lutein Active Omeprazole 20 MG 1 capsule 30 minutes before morning meal Orally Once a day; Duration: 30 day(s) Active Tamsulosin HCl 0.4 MG 1 capsule Orally O nce a day Active Simvastatin 20 MG 1 tablet Orally Once a day Active Finasteride Active Propranolol HCl 60 MG 1 tablet Orally Tw ice a day; Duration: 30 day(s) Active Voltaren 1 % as directed Externally Active Immunizations Vaccine Route Administration Date Status Comme nts Influenza Unknown 05/02/2025 Administered COVID-19 Moderna Vaccine Unknown 05/07/2022 Administered 1st [...] primary osteoarthritis of the ankle and/or foot (630105146) Primary osteoarthritis, left ankle and foot (M19.072) Active confirmed Problem Onychomycosis (942254103) Onychomycosis (B35.1) Active confirmed Problem Localized, primary osteoarthritis of the ankle and/or foot (680755175) Degenerative arthritis of toe joint, right (M19.071) Active confirmed Vital Signs Blood pressure diastolic 67 mm Hg 05/12/2025 Height 5 ft 10 in in 05/12/2025 Blood pressure systolic 121 mm Hg 05/12/2025 Weight 165 lbs 05/12/2025 BMI 23.67 kg/m2 05/12/2025 Procedures Procedure Date Ordered Date Performed Result Body Sit e 72508-DSACEFW NAIL, 6 OR MORE 10/13/2024 N/A 00608-[id number] NAIL, OR MORE 01/13/2025 N/A [id number] NAIL, OR MORE 05/12/2025 N/A Encounters Encounter Location Date Provider Diagnosis [facility] [address] [address] 10/13/2024 Sandoval Palacio Pain in right toe(s) M79.674 ; Onychomycosis B35.1 and Pain in left toe(s) M79.[address] [address] 01/13/2025 Carlie Ridley Pain in right toe(s) M79.674 ; Onychomycosis B35.1 and Pain in left toe(s) M79.[address] [address] 05/12/2025 Carlie Ridley Pain in right toe(s) M79.674 ; Onychomycosis B35.1 and Pain in left toe(s) M79.[address] [address] 10/04/2024 Carlie Ridley Assessments Encounter Date Diagnosis (ICD Code) Assessment Notes Treatment Notes Treatment Clinical Notes Section Notes 10/13/2024 Pain in right toe(s) (ICD-10 - M79.674) 01/13/2025 Pain in right toe(s) (ICD-10 - M79.674) 05/12/2025 Pain in right toe(s) (ICD-10 - M79.674) 05/12/2025 Onychomycosis (ICD-10 - B35.1) 01/13/2025 Onychomycosis (ICD-10 - B35.1) 10/13/2024 Onychomycosis (ICD-10 - B35.1) 10/13/2024 Pain in left toe(s) (ICD-10 - M79.675) 01/13/2025 Pain in left toe(s) (ICD-10 - M79.675) 05/12/2025 Pain in left toe(s) (ICD-10 - M79.675) Plan Of Treatment Pending Test Test Name Order Date [id number] NAIL, 6 OR MORE 10/13/2024 [id number] NAIL, 6 OR MORE 01/13/2025 [id number] NAIL, 6 OR MORE 05/12/2025 52104, J0702- INJECT or DRAIN, JOINT/BUR SA 02/03/2019 96305, J0702- INJECT or DRAIN, JOINT/BUR SA 02/17/2019 Next Appt Details Provider Name:Carlie Stevens poornima, 09/08/2025 11:00:00 AM, [address] [place] [address], [place], [address], Insurance Providers Payer Name Payer Address Payer Phone Subscriber Number Group Number Insured Name Patient Relationship to Insured Coverage Start Date Coverage End Date Medicare National [facility] [address] [place] [address] [id number] Candido Liang Self - patient is the insured [employer] [address] [place] [address] [id number] Candido Liang Self - patient is the insured Medical (General) History Medical History History ICD Code Hypercholesterolemia Benign prostatic hyperplasia (BPH) Arthritis Back,Hip,and Knee pain Cataracts Sciatica Measles Chicken pox Pacemaker Cholesterol Hiatal hernia Macular degeneration Reflux ( GERD) Surgical History Surgery Date(Month/Year) Orchiopexy thyroid nodule removal appendectomy 1949' right knee arthroscopy cardiac pacemeker 1973 tonsillectomy trigger finger release colonoscopy endoscopy orchcodexy 1950 skin cancer removed from nose 12/2024 Hospitalization History Reason Date(Month/Year) pneumonia, neuro virus 09/25
--- OUTSIDE RECORDS SUMMARY | 2025-07-21 00:52 | XMS_ITS | Patient Health Record ---
Author Organization [facility] Address [address] [place] [address] Care Team Providers Care String Laster Name Role Phone Maik AZUL [place] Primary Care Provider Grzegorz Love Unavailable [phone] Reason For Referral No Information Medications Medication SIG (Take, Route, Frequency, Duration) Notes Start Date End Date Status Tamsulosin HCl 0.4 MG Capsule TAKE 1 CAPSULE BY MOUTH EVERY DAY Oral twice a day Active ICaps 1 Capsule 1 capsule Orally twi ce a day Active Omeprazole 20 MG Capsule Delayed Release TAKE 1 CAPSULE TWICE DAILY Orally Twice a day; Duration: 90 days Active Gas Relief 80 MG Tablet Chewable 1 tablet after meals and at bedtime as needed Orally Four times a day Active Simvastatin 40 MG Tablet 1 tablet in the evening Orally Once a day Active Immunizations Vaccine Route Administration Date Status Comme nts Influenza Unknown 06/01/2016 Administered Influenza Unknown 05/02/2019 Administered Social History Social History Additional Details Category Social Info Options Details Miscellaneous: Marital status: 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: Nonsmoker; occasional glass of wine Nonsmoker; occasional glass of wine Nonsmoker; occasional glass of wine Nonsmoker; occasional glass of wine Nonsmoker; occasional glass of wine Problems Problem Type SNOMED Code ICD Code Onset Dates Problem Status W/U Status Risk Notes Problem Abdominal bloating (104427146) Abdominal bloating (R14.0) Active confirmed Problem Flatulence, eructation and gas pain (621435496) Abdominal distension (gaseous) (R14.0) Active confirmed Problem Early satiety (339483231) Early satiety (R68.81) Active confirmed Problem Gastroesophageal reflux disease without esophagitis (386348009) Gastroesophageal reflux disease without esophagitis (K21.9) Active confirmed Problem Computed tomography of abdomen abnormal (01857305046400651) Abnormal CT scan, stomach (R93.3) Active confirmed Problem Generalized abdominal pain (084757506) Abdominal pain, generalized (R10.84) Active confirmed Encounters Encounter Location Date Provider Diagnosis [facility] [address] [place] [address] 01/20/2025 Grzegorz Bhatia [facility] [address] [place] [address] 01/20/2025 Grzegorz Bhatia Plan Of Treatment Future Test Test Name Order Date UPPER GI ENDOSCOPY 09/24/2016 Insurance Providers Payer Name Payer Address Payer Phone Subscriber Number Group Number Insured Name Patient Relationship to Insured Coverage Start Date Coverage End Date MEDICARE OF [place] [address] [place] [address] [id number] CARO CASTAÑEDA Self - patient is the insured [employer] ATT[employer] CLAIMS [address] [place] [phone] [id number] CARO CASTAÑEDA Self - patient is the [...]
[2025-08-03 10:11] VITALS: BP 150/67; PULSE 60; RESP 16; O2SAT 98; BMI 23.7
--- NOTE | 2025-08-03 10:23 | HO.ANESPROP2 ---
Documented by User: Louise Dow NP 08/15/25 09:28 HPI - Anesthesia Eval Consult details Narrative: 85yo M for L3-4,L4-5 Lumbar Decompression, 08/17/25 No recent illness. Chronic PND No CP/SOB with activity limited to back pain SSS with pacer (not dependant). Follows [facility]. Optimized for surgery per 08/09/25 office visit Severe N/V after conscious sedation endo procedures. Not sure if N/V after GA cases. Will avoid scope patch d/t advanced age and BPH PMFSH Active Problems Active Problems: All Active Problems Lumbar stenosis with neurogenic claudication (Acute) Acquired renal cyst of left kidney (Acute) Bilateral leg weakness (Acute) Lumbar spinal stenosis (Acute) Lumbar disc herniation (Acute) Muscle fatigue (Acute) Low back pain (Acute) Nose abrasion (Acute) Hyperchloremia (Acute) Elevated WBC count (Acute) Community acquired pneumonia (Acute) Medicare annual wellness visit, initial (Acute) Myalgia (Acute) Palpitations (Acute) Numbness and tingling in left hand (Acute) Persistent frenulum of penis (Acute) Penis pain (Acute) BPH loc w urin obs/LUTS (Acute) Hematospermia (Acute) Right sided sciatica (Acute) Hamstring tightness of right lower extremity (Acute) Aspiration into airway (Acute) Lower limb symptom (Acute) Hyperglycemia (Acute) Bilateral lower extremity pain (Acute) Bilateral hip joint arthritis (Acute) Chondrocalcinosis articularis (Acute) Renal cysts, acquired, bilateral (Acute) Lateral epicondylitis, right elbow (Acute) Prostate nodule (Acute) Carpal tunnel syndrome, right (Acute) Rotator cuff impingement syndrome of left shoulder (Acute) Renal mass (Acute) Elevated PSA (Acute) Urgency of micturition (Acute) Decreased urine stream (Acute) BPH (benign prostatic hyperplasia) (Acute) Multiple premature ventricular complexes (Acute) GERD (gastroesophageal reflux disease) (Acute) Pure hypercholesterolemia (Acute) Groin pain (Acute) Past Medical History Medical History PND (post-nasal drip) BPH (benign prostatic hyperplasia) Back pain PVCs (premature ventricular contractions) Multiple premature ventricular complexes GERD (gastroesophageal reflux disease) Pure hypercholesterolemia Groin pain Obstructive and reflux uropathy Wrist tendonitis Cardiac pacemaker (08/26/74) Family History Family History Father Cancer Mother Cancer Surgical History Surgical History History of carpal tunnel release (2022) History of esophagogastroduodenoscopy (EGD) (2019) History of colonoscopy History of surgery (1950) Trigger finger History of tonsillectomy H/O arthroscopy of right knee History of appendectomy Social History Social History Household Members: Spouse Housing: House Are you a primary manager intensive care to a significant other at home: No Do you presently have visiting nurse or other home services: No Alcohol intake: current Alcohol intake frequency: holidays/special occasions only Patient Tobacco Use Status: Never used Tobacco e-Cigarette/Vaping Use: Never Used Second Hand Smoke Exposure: No Use of substances other than those prescribed or required for medical reasons: No Have you been hit, kicked, punched, or otherwise hurt by someone within the past year? 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 Cognitive needs: No Hearing needs: No Vision needs: No Meds Allergies Allergy/AdvReac Type Severity Reaction Status Date / Time No Known Allergies Allergy Mild N/A Verified 05/20/25 09:31 Home Medications ?Medication ?Instructions ?Recorded ?Confirmed ?Last Taken ?Type omeprazole 20 mg capsule,delayed 40 mg PO DAILY 08/16/21 08/03/25 09/01/24 History release propranolol 60 mg capsule,24 60 mg PO BEDTIME 04/29/24 08/03/25 09/01/24 History hr,extended release vit C 250 mg-E 90 mg-zinc 40 1 tab PO BID 08/03/25 08/03/25 Unknown History mg-copper 1 [id number] chew tablet (PreserVision AREDS-2) Exam Height,Weight and Vital Signs: Height 5 ft 10 in Weight 74.843 kg Last Vital Signs Pulse 60 08/03/25 10:11 Resp 16 08/03/25 10:11 BP 150/67 H 08/03/25 10:11 Pulse Ox 98 08/03/25 10:11 O2 Del Method Room Air 08/03/25 10:11 Pertinent Lab Results Pertinent Lab Results: Lab Results 08/03/25 Range/Units 10:56 WBC 8.9 (4.8-10.8) X10*3/uL RBC 4.39 L (4.60-5.80) X10*6/uL Hgb 13.8 L (14.0-18.0) g/dl Hct 39.8 L (42.0-52.0) % MCV 90.7 (80.0-98.0) fL MCH 31.4 (27.0-33.0) pg MCHC 34.7 (31.0-36.0) g/dl RDW 13.1 (11.0-16.0) % Plt Count 186 (160-400) X10*3/uL MPV 9.2 L (9.4-12.4) fL Absolute Nucleated RBC 0.000 (0.0-0.012) X10*3/uL Nucleated RBC % (auto) 0.0 (0.0-0.2) /100WBC Sodium 136 (135-145) mmol/L Potassium 4.3 (3.3-5.1) mmol/L Chloride 106 (96-108) mmol/L Carbon Dioxide 24 (22-29) mmol/L Anion Gap 10 L (12-20) BUN 25 H (9-16) mg/dL Creatinine 1.07 (0.5-1.4) mg/dL Estim Creat Clear Calc 50.2 Estimated GFR > 60 Random Glucose 106 (60-115) mg/dL Calcium 9.5 (8.4-10.2) mg/dL Narrative Narrative: EKG 08/2025 SB @ 54 Pacer Check 04/2025 IMPRESSION: Normal In-Office: No Events * Normal Device Function * Alerts or events: None * Battery: Battery is at 47.6%, 3 years * Sensing, impedance and thresholds reviewed and tested * Presenting Rhythm: VS 50s * Heart Rate Histograms reviewed * Pacing and Detection Parameters were evaluated ? ECHO 06/2024 Nml LV size, wall thickness and sys function. LVEF 55% Nml RV size and function Mild (1+) aortic insufficiency PASP not elevated Airway Mallampati Class: III TM Dist: >3cm Neck ROM: Limited (OA) Loose/Missing/Broken Teeth: Yes (missing molars, crowned molars stable) Heart: RRR Lungs: CTAB Assessment and Plan Assessment Anesthesia Assessment: Anesthesia Plan Discussed and PAT Visit Documented by User: Kady Goldsmith MD 08/17/25 07:35 [facility] Past Medical History Medical History PND (post-nasal drip) BPH (benign prostatic hyperplasia) Back pain PVCs (premature ventricular contractions) Multiple premature ventricular complexes GERD (gastroesophageal reflux disease) Pure hypercholesterolemia Groin pain Obstructive and reflux uropathy Wrist tendonitis Cardiac pacemaker (08/26/74) Family History Family History Father Cancer Mother Cancer Family history of problems with anesthesia: No Surgical History Surgical History History of carpal tunnel release (2022) History of esophagogastroduodenoscopy (EGD) (2019) History of colonoscopy History of surgery (1950) Trigger finger History of tonsillectomy H/O arthroscopy of right knee History of appendectomy History of Problems with Anesthesia: No Social History Social History Household Members: Spouse Housing: House Are you a primary manager intensive care to a significant other at home: No Do you presently have visiting nurse or other home services: No Alcohol intake: current Alcohol intake frequency: holidays/special occasions only Patient Tobacco Use Status: Never used Tobacco e-Cigarette/Vaping Use: Never Used Second Hand Smoke Exposure: No Use of substances other than those prescribed or required for medical reasons: No Have you been hit, kicked, punched, or otherwise hurt by someone within the past year? 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 Cognitive needs: No Hearing needs: No Vision needs: No Meds Allergies Allergy/AdvReac Type Severity Reaction Status Date / Time No Known Allergies Allergy Mild N/A Verified 05/20/25 09:31 Home Medications ?Medication ?Instructions ?Recorded ?Confirmed ?Last Taken ?Type omeprazole 20 mg capsule,delayed 40 mg PO DAILY 08/16/21 08/03/25 09/01/24 History release propranolol 60 mg capsule,24 60 mg PO BEDTIME 04/29/24 08/03/25 09/01/24 History hr,extended release vit C 250 mg-E 90 mg-zinc 40 1 tab PO BID 08/03/25 08/03/25 Unknown History mg-copper 1 [id number] chew tablet (PreserVision AREDS-2) Assessment and Plan Assessment Anesthesia Assessment: Chart Reviewed Final Anesthetic Review Family History of Problems with Anesthesia: No History of Problems with Anesthesia: No NPO: Yes ASA Class: III Final Preanesthetic Review: No Changes in Pt Med Stat, Meds/Allgs Chart Reviewed, Consent Obtained/Reviewed and Anes Risks/Benef Reviewed Patient Risk: Intermediate Procedure Risk: Intermediate Anesthetic Plan Anesthetic Plan: GA and Agree w/ Assess. and Plan Disposition: Standard PACU
[2025-08-03 11:07] LABS: Hematocrit 39.8 % (42.0-52.0); Hemoglobin 13.8 g/dl (14.0-18.0); Mean Corpuscular HGB Conc 34.7 g/dl (31.0-36.0); Mean Corpuscular Hemoglobin 31.4 pg (27.0-33.0); Mean Corpuscular Volume 90.7 fL (80.0-98.0); NRBC Abs Auto 0.000 X10*3/uL (0.0-0.012); NRBC Pct Auto 0.0 /100WBC (0.0-0.2); Platelet Count 186 X10*3/uL (160-400); Red Blood Count 4.39 X10*6/uL (4.60-5.80); White Blood Count 8.9 X10*3/uL (4.8-10.8)
[2025-08-03 11:27] LABS: Anion Gap 10 (12-20); Blood Urea Nitrogen 25 mg/dL (9-16); Calcium 9.5 mg/dL (8.4-10.2); Carbon Dioxide 24 mmol/L (22-29); Chloride 106 mmol/L (96-108); Creatinine Clr Calc Pharmacy 50.2; Estimated Glomerular Filt Rate > 60; Potassium 4.3 mmol/L (3.3-5.1); Sodium 136 mmol/L (135-145)
[2025-08-17] VITALS (9 sets, daily range): BP systolic 117–181; BP diastolic 63–78; PULSE 53–73; RESP 10–17; TEMP 36.1; O2SAT 93–100; BMI 24.0
--- NOTE | ~2025-08-17 | FL_ITS ---
EXAMINATION: XR FLUOROSCOPY WITH IMAGES CLINICAL INFORMATION: L3-5 decompression COMPARISON: None available. TECHNIQUE: Fluoroscopy time: 7 seconds DAP: 2.8 mGy Images: 1 FINDINGS: Fluoroscopy provided for procedure. Single spot image demonstrates surgical instrument projected posterior to the L3-4 disc space No radiologist present. FL/FL guidance in OR IMPRESSION: Fluoroscopy provided for procedure. See surgical report report for details. Electronically signed by: Jason Cleaning MD 08/17/2025 04:13 PM DEMETRICE
[2025-08-17] MEDS: Lactated Ringers 1,000 ML 100 ML IVCONT (06:28)
--- NOTE | 2025-08-17 06:55 | MHC.SHP ---
Pre-Procedural Eval Section A - 24 Hr Update-Section A only Date of Service: 08/17/25 Section B - Complete if H&P > 30 days Chief Complaint: Spinal stenosis, lumbar region with neurogenic Allergies: Allergies Allergy/AdvReac Type Severity Reaction Status Date / Time No Known Allergies Allergy Mild N/A Verified 05/20/25 09:31 Review of Systems Sugical H&P ROS: Negative: Constitution, Cardiovascular, Respiratory, Neurological, Psychiatric, Hem-Onc, Allergic/Immunologic, Gastrointestinal, Genitourinary, Musculoskeletal, Integumentary, Endocrine and Eyes/Ears/Nose/Throat Exam Surgical H&P Exam: Not Evaluated: HEENT, Not Evaluated: Heart, Not Evaluated: Lungs, Not Evaluated: Extremities, Not Evaluated: Abdomen, Not Evaluated: Skin and Not Evaluated: Neurological Exam Comment: The patient is awake, alert, in no acute distress. Proposed surgical incision site is clean, dry, with no signs of recent trauma. Plan Diagnosis/Plan: Unchanged I have reviewed the history and physical and performed a pertinent physical examination on my patient. No changes have occurred unless specified. Plan remains the same, L3-5 lumbar decompression Time Spent With Patient Time: Total time managing care of this patient today __9__ minutes.
--- NOTE | 2025-08-17 09:26 | W.PM.OPN ---
Operative Note Operative Note Date of Service: 08/17/25 Narrative: Preoperative Diagnosis: L3-4, L4-5 spinal stenosis/lateral recess stenosis/neural foraminal stenosis Operation: L3-4, L4-5 Laminotomy, Partial facetectomy and foraminotomy with use of microscope Consent Informed Consent was obtained for this operation. I have explained the nature, purpose and benefits of the operation. I have discussed the risks and benefit of the operation including possible complications or adverse events with patient/family. Alternative(s) were discussed with the patient with their relative benefits and risks as well as the consequences of not accepting the operation were included in obtaining consent. Surgeon: MARILEE CARRENO MD, PHD Procedure Assisted By: Clyde Barrow Description of Procedure This 85-year-old male suffering from neurogenic claudication. A CT scan shows lumbar stenosis L3-4 and L4-5.. The patient was offered a decompression. The procedure complications were explained. The patient was consented. The patient was brought to the operating room and endotracheally intubated. The patient was turned in prone position on the Elfego frame. Prep and drape was done followed by timeout. The Physician [employer] assistant manager provided access. A mid lumbar incision was made followed by release of the paravertebral muscle on the left side to expose the L3-4 and L4-5 lamina and facet joints. An intraoperative x-ray was obtained to confirm the correct level. The microscope was brought in. I took over the procedure. The high-speed drill was used to do a left L3-4 laminotomy until flavum ligament was reached. A #2 Kerrison was used to expand the laminotomy near flush to the pedicles and to include a partial facetectomy. The flavum ligament was opened and resected with a #3 Kerrison to decompress the underlying thecal sac. The flavum ligament was removed to decompress the lateral recess and the exiting L4 nerve root. Patient was turned contralaterally. The spinous process was undercut and this way I was able to reach the contralateral side and to remove more flavum ligament to decompress the contralateral side. A long nerve hook could be easily passed along the medial side of the pedicles as a sign of adequate decompression. Then attention was turned to the L4-5 level where a similar procedure was performed. The left L4-5 laminotomy was done, including a partial facetectomy. Flavum ligament was opened and resected with a 2. And 3 Kerrison to decompress the underlying thecal sac. The beginning of the L5 nerve root was identified and followed after which the L5 nerve root was decompressed in the lateral recess. The spinous process was undercut and the contralateral side was addressed as well by removing more flavum ligament. The microscope was removed. Hemostasis was done. The physician [employer] assistant manager close the Incision in 2 layers. Steri-Strips were used to approximate incision. An OpSite with Tegaderm was used to cover the incision. All sponge needle counts were correct. Patient was extubated and transported in stable is to recovery room. Anesthesia: General Estimated Blood Loss (ml): 30 Complications: None Duration of Surgery: 1 hour and 20 minutes Postoperative Plan: Discharge to home
--- NOTE | 2025-08-17 09:32 | PM.DS ---
DS: Providers Provider Date of discharge: 08/17/25 Primary care physician: Chevy Pleitez MD DS: Summary Time Attestation Discharge Coordination Time (in mins): 13 Quality: Safe Use of Opioids Does Pt have an Active Cancer Diagnosis on the Problem List?: No Quality: Stroke Does the patient have a stroke diagnosis?: No Physical Exam Vital Signs: Vital Signs: Last Vital Signs Pulse 60 08/03/25 10:11 Resp 16 08/03/25 10:11 BP 150/67 H 08/03/25 10:11 Pulse Ox 98 08/03/25 10:11 O2 Del Method Room Air 08/03/25 10:11 BMI result Body Mass Index 24.0 DS: Data Data Completed and Pending Completed studies during hospitalization [Text1]: Procedures Repair Face Skin, External Approach (09/01/24) Discharge Plan Discharge Patient Disposition: Home, Self-Care Referrals: Chevy Pleitez MD [Primary Care Provider, Internal Medicine] - 1 Week Discharge Medications: New tramadol 50 mg tablet 50 mg PO Q6H PRN (Reason: pain) Qty: 20 0RF No Action simvastatin 20 mg tablet 20 mg PO BEDTIME Qty: 90 3RF finasteride 5 mg tablet 5 mg PO DAILY 90 Days Qty: 90 3RF tamsulosin 0.4 mg capsule 0.8 mg PO DAILY 90 Days Qty: 180 3RF PreserVision AREDS-2 250-90-40-1 mg Tablet,Chewable 1 tab PO BID propranolol 60 mg capsule,extended release 24 hr 60 mg PO BEDTIME omeprazole 20 mg capsule,delayed release(DR/EC) 40 mg PO DAILY (DME) Wrist Brace Misc See Rx Instructions .MEDSUPPLY Qty: 1 0RF Rx Instructions: COMFORT FORM WRIST, rt, M Discharge Orders: Discharge Order (Routine); Ordered 08/17/25 Ordered By: Clyde Calderón Diet: Advance to usual diet Activity on Discharge: As tolerated Activity Restrictions/Additional Instructions: After your spinal surgery we ask you to observe the following restrictions/guidelines: Activity: It is normal to feel some discomfort as you increase your activity, but that will improve with time. We ask you avoid heavy lifting or acitivities that cause pain. As a general rule, 8lbs is a safe limit for lifting right after surgery. Walk as much as you feel comfortable but not to exhaustion. You will feel extra tired the first few days after surgery. Stay well hydrated. It is OK to walk up and down stairs You may return to driving when you are off narcotics (such as vicodin, oxycodone, dilaudid, etc), and you are back to normal functional capacity. If you have any concerns please check with office before driving. Return to work is specific to each patient and each surgery, so please speak with your doctor/PA at first follow up. Please bring paperwork such as FMLA at that time if you need it filled out. Medications: We recommend you take 500mg Tylenol every 4 hours for the first week after surgery, if you do not have any liver issues and can tolerate this medication. Do not exceed 4,000mg daily. We also recommend you take Ibuprofen 600mg every 8 hours for the first week after surgery starting on post op day 1, if you do not have any kidney or sugar control issues and can tolerate this medication. Do not exceed 2,000mg daily. We will give you a short supply of narcotics after surgery (usually one weeks worth). If you need more please call the office but do not use more than prescribed. You will need to give our office 48 hours notice if you need narcotics refilled and we do not fill narcotics on weekends or evenings. If you are on a narcotic, it is a good idea to take a stool softener such as colace or senna to avoid constipation If you take blood thinner such as aspirin, Plavix, Coumadin, Effient, Eliquis etc for conditions such as Afib, DVT, Pulmonary embolus, coronary disease, stents etc please speak with your surgeon about specific details as to when you can resume these medications. You can resume NSAIDs on post op day 1 (eg: Motrin, Naproxen, etc). Follow up: Please call the office, , after surgery to arrange a 3 week follow up for wound check. Wound Care: You may remove your dressing on the first day after surgery. ?You may ?leave open to air. Please do not remove the steri strips underneath. they will fall off on their own in one week. IT IS NORMAL FOR THE WOUND TO OOZE OR BE BLOODY FOR A FEW DAYS AFTER SURGERY. ?IF THIS HAPPENS JUST PLACE NEW DRESSING OVER IT TO AVOID STAINING CLOTHES. You may shower on post op day # 1 We ask that you do not let the water soak the wound. If it does get wet, just towel dry lightly. Please do not scrub your incision or place any type of chemical/ointment on the wound. No tub baths, pools or jacuzzis for one month. If you have any leaking or redness from your wound, or fevers, please call the office. Print Language: Swedish
--- NOTE | 2025-08-17 13:51 | PC.NURSE ---
This RN assisted patient from stretcher to chair with assistance patient stated his legs feel weak and what is he to do when he gets home and can not go up 3 stairs to the house. This RN texted Dr. Russ and Clyde his PA to advise on next step. awaiting to hear back
--- NOTE | 2025-08-17 14:02 | PC.NURSE ---
Clyde NAYAK will be over to see patient shortly.
--- NOTE | 2025-08-17 14:44 | PC.NURSE ---
Clyde NAYAK assessed patient is sending home with walker. Patient stood to void 400cc. no need for ruiz at this time. Clyde updtaed as well. getting patient up to dress and go home now.
== END 2025-08-17 15:16 | disposition home or self-care (01) ==
PROVIDERS: Nurse Practitioner; PCP Internal Medicine; Visit Provider Neurological Surgery
PROC: (CPT 63047; principal; 2025-08-17 07:30)
DX: M48.062 Spinal stenosis, lumbar region with neurogenic claudication (principal); M54.50 Low back pain, unspecified; R26.2 Difficulty in walking, not elsewhere classified; I49.5 Sick sinus syndrome; I49.3 Ventricular premature depolarization; I35.1 Nonrheumatic aortic (valve) insufficiency; Z95.0 Presence of cardiac pacemaker; E78.00 Pure hypercholesterolemia, unspecified; K21.9 Gastro-esophageal reflux disease without esophagitis; N40.0 Benign prostatic hyperplasia without lower urinary tract symptoms; Z79.899 Other long term (current) drug therapy
CPT/HCPCS: 63047; 63048; 36415; 80048; 85027; J0131; J0690; J1100; J1630; J2003; J2405; J2704; J3010

== ENCOUNTER → 2025-08-17 06:00 | Outpatient (BNV) | payer MEDICARE, SELFPAY | PROVIDERS: PCP Internal Medicine; Visit Provider Neurological Surgery | DX: M48.062 Spinal stenosis, lumbar region with neurogenic claudication (principal) | CPT/HCPCS: 63047; 63048; 99499 ==